=== PATIENT | female | born 1940 | race Caucasian/White ===

== ENCOUNTER 2017-03-02 14:37 | Inpatient (IN) | payer OTHER, MEDICARE ==
[~2017-03-02] VITALS: Ht 162.6 cm; Wt 115.7 kg
--- NOTE | 2017-03-02 14:56 | ED CRITICAL CARE ---
History of Present Illness General Chief Complaint: General Adult Stated Complaint: BIBA UNRESPONSIVE Source: old records, EMS Exam Limitations: unable to give history, clinical condition Vital Signs & Intake/Output Vital Signs & Intake/Output Vital Signs Date Time Temp Pulse Resp B/P B/P Pulse O2 O2 Flow FiO2 Mean Ox Delivery Rate 03/02 1929 63 18 123/63 100 Ventilator 90% 03/02 1924 90 03/02 1859 60 18 116/60 99 Ventilator 100% 03/02 1836 63 18 114/63 100 Ventilator 100% 03/02 1822 62 18 109/59 100 Ventilator 100% 03/02 1751 98.0 62 18 107/59 100 Room Air 03/02 1734 61 18 108/54 100 Ventilator 100% 03/02 1722 63 18 122/59 95 Ventilator 100% 03/02 1658 64 18 116/61 97 Ventilator 100% 03/02 1648 64 18 102/69 98 Ventilator 100% 03/02 1633 62 18 91/55 98 Ventilator 100% 03/02 1631 100 03/02 1614 97.5 62 18 88/53 97 Ventilator 100% 03/02 1557 62 18 105/57 98 Ventilator 100% 03/02 1543 100 03/02 1536 98 Ventilator 100% 03/02 1526 63 18 110/62 99 Ventilator 100% Allergies Coded Allergies: doxycycline (UNKNOWN PER PT 03/02/17) fentanyl (PER PT "ALMOST " 03/02/17) morphine (PER PT UNKNOWN 03/02/17) Reconcile Medications Alprazolam 0.5 MG TABLET 0.5 TAB PO QPM SLEEP/ANXIETY (Reported) Amitriptyline HCl 50 MG TABLET 1 TAB PO DAILY ANXIETY (Reported) Aspirin (Ecotrin*) 81 MG TABLET.DR 1 TAB PO DAILY HEART/BLOOD (Reported) Atorvastatin Calcium 10 MG TABLET 1 TAB PO DAILY CHOLESTEROL (Reported) Carvedilol 25 MG TABLET 1 TAB PO BID HEART/BP (Reported) Celecoxib 200 MG CAPSULE 1 CAP PO DAILY PAIN/INFLAMMATION (Reported) Diazepam 2 MG TABLET 1 TAB PO PRN ANXIETY (Reported) Dicyclomine HCl 20 MG TABLET 1 TAB PO TID PRN GI (Reported) Esomeprazole (Nexium) 40 MG CAPSULE.DR 1 CAP PO BID GI (Reported) Furosemide 40 MG TABLET 1 TAB PO DAILY DIURETIC (Reported) Metolazone 5 MG TABLET 1 TAB PO DAILY DIURETIC (Reported) Ondansetron (Zofran Odt) 4 MG TAB.RAPDIS 1 TAB SL Q8H PRN N/V (Reported) Oxycodone HCl (Oxycontin) 20 MG TAB.ER.12H 1 TAB PO BID PAIN (Reported) Oxycodone HCl 10 MG TABLET 1 TAB PO TID PAIN (Reported) Triage Nurses Notes Reviewed? yes HPI: Patient presents for evaluation of unresponsiveness after being found by family. According to EMS she was relatively prolonged extrication and she was nasotracheally intubated due to trismus. Patient's initial heart rate was in the 30s. Upon arrival to the emergency department she was being paced at a rate of 60 bpm and being ventilated by Ambu bag. Past History Medical History Any Pertinent Medical History? see below for history Surgical History Surgical History: unobtainable Family History Hx Contributory? No (patient unable to provide) Review of Systems Review of Systems Constitutional: Reports: see HPI. Comments Patient unable to provide review of systems Physical Exam Physical Exam General Appearance: SEE BELOW Comments: Gen.: Well-nourished, well-developed, status post endotracheal tube being actively ventilated upon arrival. Head: Normocephalic, atraumatic. Eyes: Corneas slightly clouded with enlarged reactive pupils Ears: Normal inspection bilaterally Nose: Endotracheal tube in place with red blood over the face and mouth Throat/mouth : Unable to assess Neck: No obvious trauma or goiter Heart: Regular rate and rhythm, Lungs: Clear to auscultation bilaterally with normal air entry with bagged ventilations Chest: Nontender Back: Normal range of motion Abdomen: Soft, softly distended, no "breathsounds" over the epigastric region or left upper quadrant Extremities: Decreased spontaneous range of motion of all extremities, equal radial pulses, no cyanosis, bilateral lower extremity pitting edema with chronic skin changes Neurologic: Patient moves all extremities occasionally particularly with noxious stimuli, otherwise unable to assess Skin: warm and dry Psychiatric: Unable to assess Core Measures ACS in differential dx? No CVA/TIA Diagnosis No Sepsis Present: No Sepsis Focused Exam Completed? No Progress Differential Diagnoses I considered the following diagnoses in my evaluation of the patient: Plan of Care: Orders Procedure Date/time Status VRE ACTIVE SURVIELLANCE 03/02 2015 Active ACTIVE SURVEILLANCE NARES 03/[address] CHEST WO IV CONTRAST 03/02 2010 Active Weight 03/02 1950 Active Turn and Reposition 03/02 1950 Active Teach/Educate 03/02 1950 Active Skin Integrity Protocol 03/02 1950 Active Skin/Pressure Ulcer Assess (Sk 03/02 1950 Active Precautions 03/02 1950 Active Pain Treatment and Response 03/02 1950 Active Nutritional Intake, Monitor 03/02 1950 Active Isolation 03/02 1950 Active Patient Care Conference 03/02 1950 Active Activity/Ambulation 03/02 1950 Active Pathway - chart 03/02 1927 Active Patient Data 03/02 1927 Active Code Status 03/02 1927 Active URINE DRUGS OF ABUSE 03/02 1926 Complete URINALYSIS 03/02 192 Complete VENTILATOR PARAMETERS 03/02 191 Complete Restraint- Medical 03/02 190 Active Admit to inpatient 03/02 1801 Active Patient Safety Monitor 03/02 1653 Active Nevarez, Insertion/Removal/Asses 03/02 1547 Active VENTILATOR PARAMETERS 03/02 1513 Complete Intake & Output 03/02 1510 Active ARTERIAL BLOOD GAS (GEN) 03/02 1453 Complete Telemetry/Clinical Biochemical Geneticist 03/02 1453 Active TROPONIN LEVEL 03/02 1453 Complete MAGNESIUM 03/02 1453 Complete CBC WITHOUT DIFFERENTIAL 03/02 1453 Complete B-TYPE NATRIURETIC PEP (BNP) 03/02 1453 Complete BASIC METABOLIC PANEL 03/02 1453 Complete EKG 03/02 1442 Active House Staff 03/02 UNK Active VTE Mechanical Prophylaxis 03/02 UNK Active Vital Signs 03/02 UNK Active Laboratory Tests 03/02/17 193: Urine Opiates Screen 999.00, Methadone Screen 50, Barbiturate Screen < 60, Ur Phencyclidine Scrn < 6.00, Amphetamines Screen < 100, U Benzodiazepines Scrn 231 H, Urine Cocaine Screen < 50, Urine Cannabis Screen < 5.00, Urinalysis MANY H, Urine Color YAIMA, Urine Clarity HAZY H, Urine pH 6.0, Ur Specific Chancellor 1.025, Urine Protein 100 H, Urine Ketones NEG, Urine Nitrite NEG, Urine Bilirubin NEG, Urine Urobilinogen 1.0, Ur Leukocyte Esterase NEG, Ur Microscopic SEDIMENT EXAMINED, Urine RBC 5-10 H, Urine WBC 1-3 H, Ur Epithelial Cells FEW, Urine Bacteria MANY H, Urine Hemoglobin MOD H, Urine Glucose NEG 03/02/17 1610: pH 7.40, pCO2 45, pO2 84, HCO3 27, ABG O2 Sat (Measured) 94.0 L, P-50 (Temp Corrected) N, Carboxyhemoglobin 1.8, O2 Concentration % 100, Temperature 97.5, Respiration Rate 18, O2 Delivery Method ESPRIT, Vent Mode AC, Expiratory Pressure 5, Tidal Volume 450, Phlebotomy Draw Site LEFT RADIAL 03/02/17 1520: Anion Gap 12, Estimated GFR 28 L, BUN/Creatinine Ratio 27.2 H, Glucose 114 H, Calcium 8.0 L, Magnesium 2.2, Troponin I 0.08, [id number] Pept 10121 H, CBC w Diff MAN DIFF ORDERED, RBC 5.49 H, MCV 79.6 L, MCH 24.4 L, RDW 16.5 H, MPV 8.4, Gran % 86.3 H, Lymphocytes % 9.2 L, Monocytes % 4.5, Eosinophils % 0, Basophils % 0, Absolute Granulocytes 10.1 H, Segmented Neutrophils 84 H, Absolute Lymphocytes 1.1 L, Lymphocytes 10 L, Monocytes 6, Absolute Monocytes 0.5, Absolute Eosinophils 0, Absolute Basophils 0, Platelet Estimate ADEQUATE, Polychromasia 1+, Hypochromic-Microcytic 1+, Poikilocytosis 1+, Basophilic Stippling RARE, Anisocytosis 1+, Microcytic Cells 1+, PUBS MCHC 30.6 L, Fld Total RBCs Counted 100 Microbiology 03/02 2016 UPPER RESP: Surveillance Culture - CAN Cancelled: Cancelled via OE: DUPLICATE 03/02 2016 GI: Surveillance Culture - CAN Cancelled: Cancelled via OE: DUPLICATE 03/02 2015 UPPER RESP: Surveillance Culture - ORD 03/02 2015 GI: Surveillance Culture - ORD Diagnostic Imaging: Discussed w/RAD: Radiology Read. CXR Impression: PATIENT: KATIE PHAN V PRESENT AGE : 76 PATIENT ACCOUNT NO: [id number] : 42 LOCATION: [facility] ORDERING PHYSICIAN: Brandon Alvarenga MD SERVICE DATE: 03/02/17 EXAM TYPE: RAD - XRY-PORTABLE CHEST XRAY EXAMINATION: XR PORTABLE CHEST CLINICAL INFORMATION: Unresponsive. Status post endotracheal tube placement. COMPARISON: None TECHNIQUE: Portable supine view of the chest was obtained. FINDINGS: The tip of the endotracheal tube terminates 5 cm from the leah, in good position. Patient is rotated to the right. EKG leads overlie the chest. Cardiac silhouette is within normal limits in size for technique. The mediastinal contour appears enlarged, though this may be due to supine positioning. Lung volumes are low with bibasilar and perihilar atelectasis. Perihilar opacities could also reflect early edema. No focal consolidation. No pleural effusion or pneumothorax. Surgical clips are present in the left axillary region. 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 IMPRESSION: The endotracheal tube terminates in good position, 5 cm from the leah. Widened mediastinum contour, most likely related to the supine positioning. Underlying mediastinal abnormalities are possible. If there is concern for acute vascular process, consider correlation with chest CT. Low lung volumes with bibasilar and perihilar atelectasis. Perihilar opacities could also correspond to early edema. DICTATED BY: Jerel Burris MD DATE/TIME DICTATED:03/02/171622 RETREAD OPERATOR:RADHA DATE/TIME TRANSCRIBED:1622 CONFIDENTIAL, DO NOT COPY WITHOUT APPROPRIATE AUTHORIZATION. < Electronically signed in Other Vendor System> SIGNED BY: Jerel Burris MD 03/02/17 1631 Initial ED EKG: NSR, T waves inverted in the anteroseptal leads Comments: 03/02/2017 2:50:31 PM I have discussed this patient's case with anesthesia given the current nasotracheal intubation. The paramedics stated that there was some trauma during the nasotracheal intubation and the patient does have red blood over the nose and mouth. Transferring her from the nasotracheal tube and endotracheal tube will likely be challenging given the blood and the patient's body habitus. Anesthesia will be evaluating her after she is acutely stabilized. 03/02/2017 3:16:54 PM blood work drawn by me via right femoral vein venipuncture. Patient is beginning to move her extremities more vigorously. 03/02/2017 5:27:24 PM the patient is now awake alert and is mouthing answers to questions. I've explained to her the possibility of a central line placement but she wishes to hold off on that for the time being. I made her aware that her IV access is tenuous. Her daughter and were at the bedside during my conversation. I feel she looks remarkably better than she did upon presentation. 03/02/2017 7:12:50 PM patient's case discussed with Dr. Rivera and Dr. Park. Dr. Park will consult on patient in the morning. He states that he might consider extubating patient if she is awake alert and responsive. Departure Departure Disposition: STILL A PATIENT Condition: Stable Clinical Impression Primary Impression: Respiratory failure Qualifiers: Chronicity: acute Respiratory failure complication: unspecified whether with hypoxia or hypercapnia Qualified Code: J96.00 - Acute respiratory failure, unspecified whether with hypoxia or hypercapnia Referrals: Xenia MYRICK,Jamil Duke (PCP/Family) Departure Forms: Customer Survey General Discharge Information Admission Note Spoke With: Rui Tamez MD Documentation of Exam: Documentation of any treatments & extenuating circumstances including Concerns Regarding Discharge (functional status, medication knowledge or non-compliance, living conditions, etc.) that warrant an admission rather than observation: Patient was intubated in the field secondary to respiratory arrest. Her heart rate was in the 30s indicating that she was close to a cardiac arrest as well. Given this patient's age and Oddy habitus I feel that she requires continued intubation with full respiratory support and ICU level care. She cannot be treated as an outpatient. Consultation with the adjutant general should be obtained and the patient's respiratory support and oxygenation weaned as tolerated. Pulmonary consultation should also be considered given the high likelihood of sleep apnea. I suspect the patient's respiratory failure secondary to a combination of undiagnosed sleep apnea, opiate use and benzodiazepine use. Patient's medications should be reevaluated and dosages adjusted given the patient's episode of respiratory failure. Pain management consultation should be considered as well. I feel this patient will require a multiple day hospitalization. Critical Care Note Critical Care Note Critical Care Time: 75-104 min
[2017-03-02 15:39] LABS: ABSOLUTE BASOPHIL COUNT 0 /CUMM (0.0-0.2); ABSOLUTE EOSINOPHIL COUNT 0 /CUMM (0.0-0.7); ABSOLUTE GRANULOCYTE CT 10.1 /CUMM (1.4-6.5); ABSOLUTE LYMPH COUNT 1.1 /CUMM (1.2-3.4); ABSOLUTE MONOCYTE COUNT 0.5 /CUMM (0.10-0.60); BASOPHIL % 0 % (0.0-2.0); EOSINOPHIL % 0 % (0-5); HEMATOCRIT 43.7 % (37-47); MEAN CORPUSCULAR HGB 24.4 PG (27.0-31.0); MEAN CORPUSCULAR HGB CONC 30.6 G/DL (33.0-37.0); MEAN CORPUSCULAR VOLUME 79.6 FL (81.0-99.0); MEAN PLATELET VOLUME 8.4 FL (7.4-10.4); PLATELET COUNT 180 /CUMM (130-400); RBC DISTRIBUTION WIDTH 16.5 % (11.5-14.5); RED BLOOD CELL CT 5.49 /CUMM (4.20-5.40); WHITE BLOOD CELL COUNT 11.7 /CUMM (4.8-10.8)
[2017-03-02 16:09] LABS: GRANULOCYTE % 86.3 % (42.2-75.2)
[2017-03-02] MEDS ORDERED: OXYCONTIN20 M1 PO (16:11)
[2017-03-02] MEDS ORDERED: OXYCODONE HCL10 M2 PO (16:11)
[2017-03-02] MEDS ORDERED: ZOFRAN ODT4 M1 SL (16:12)
[2017-03-02] MEDS ORDERED: ATORVASTATIN CA10 M1 PO (16:12)
[2017-03-02] MEDS ORDERED: DICYCLOMINE HCL20 M1 PO (16:12)
[2017-03-02] MEDS ORDERED: FUROSEMIDE40 M1 PO (16:12)
[2017-03-02] MEDS ORDERED: CARVEDILOL25 M1 PO (16:13)
[2017-03-02] MEDS ORDERED: CELECOXIB200 M1 PO (16:14)
[2017-03-02] MEDS ORDERED: DIAZEPAM2 M1 PO (16:14)
[2017-03-02] MEDS ORDERED: ALPRAZOLAM0.5 M4 PO (16:14)
[2017-03-02] MEDS ORDERED: NEXIUM40 M1 PO (16:15)
[2017-03-02] MEDS ORDERED: AMITRIPTYLINE H50 M2 PO (16:15)
[2017-03-02] MEDS ORDERED: METOLAZONE5 M1 PO (16:15)
[2017-03-02] MEDS ORDERED: ASPIRIN EC81 M1 PO (16:16)
--- NOTE | 2017-03-02 16:31 | RADIOLOGY REPORT ---
EXAMINATION: XR PORTABLE CHEST CLINICAL INFORMATION: Unresponsive. Status post endotracheal tube placement. COMPARISON: None TECHNIQUE: Portable supine view of the chest was obtained. FINDINGS: The tip of the endotracheal tube terminates 5 cm from the leah, in good position. Patient is rotated to the right. EKG leads overlie the chest. Cardiac silhouette is within normal limits in size for technique. The mediastinal contour appears enlarged, though this may be due to supine positioning. Lung volumes are low with bibasilar and perihilar atelectasis. Perihilar opacities could also reflect early edema. No focal consolidation. No pleural effusion or pneumothorax. Surgical clips are present in the left axillary region. 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 IMPRESSION: The endotracheal tube terminates in good position, 5 cm from the leah. Widened mediastinum contour, most likely related to the supine positioning. Underlying mediastinal abnormalities are possible. If there is concern for acute vascular process, consider correlation with chest CT. Low lung volumes with bibasilar and perihilar atelectasis. Perihilar opacities could also correspond to early edema.
--- NOTE | 2017-03-02 19:25 | History & Physical ---
Josie MYRICK,[facility] 03/02/171922: General Information and HPI MD Statement: I have seen and personally examined KATIE PHAN V and documented this H&P. The patient is a 76 year old F who presented with a patient stated chief complaint of unreponsive. Source of Information: family, old records, EMS Exam Limitations: not alert/orientated History of Present Illness: is a 76-year-old female past medical history of lupus, lower extremity edema , anxiety, chronic pain, who presented to the emergency department after her found her unresponsive. It appears the patient had a similar presentation in February 2016 (at this time she was previously on fentanyl) and had to [facility], after she was found to be unresponsive. She was subsequently given Narcan and became more responsive. of the patient Fernando was present at the time of her clinical encounter and stated that over the last few days the patient has been feeling feeling very tired and lethargic. She also has chronic pain of which she gets pain medications from her primary care physician. This morning she woke up at the 7 AM took her pain medications (One Oxycodone HCL (oxycontin) 20 mg ER * and one Oxycodone HCL 10 mg). She went back to sleep and at approximately 1 PM her attempted to wake the patient up however was unsuccessful. Since the patient was unresponsive, he called EMS. EMS found her heart rate was in 30s and she was apnic taking intermittent breaths. It was reported that the patient had to be paced on the field. Patient also had an episode of trismus at which point had to be nasally tracheally intubated. The of the patient can be reached: [phone] (home). [phone] ( cell phone). Patients PCP is: Dr Mccoy. Poncho has not seen a bass singer. She no longer follows up with a top lift trimmer. Allergies/Medications Allergies: Coded Allergies: doxycycline (UNKNOWN PER PT 03/02/17) fentanyl (PER PT "ALMOST " 03/02/17) morphine (PER PT UNKNOWN 03/02/17) Home Med list Alprazolam 0.5 MG TABLET 0.5 TAB PO QPM SLEEP/ANXIETY (Reported) Amitriptyline HCl 50 MG TABLET 1 TAB PO DAILY ANXIETY (Reported) Aspirin (Ecotrin*) 81 MG TABLET.DR 1 TAB PO DAILY HEART/BLOOD (Reported) Atorvastatin Calcium 10 MG TABLET 1 TAB PO DAILY CHOLESTEROL (Reported) Carvedilol 25 MG TABLET 1 TAB PO BID HEART/BP (Reported) Celecoxib 200 MG CAPSULE 1 CAP PO DAILY PAIN/INFLAMMATION (Reported) Diazepam 2 MG TABLET 1 TAB PO PRN ANXIETY (Reported) Dicyclomine HCl 20 MG TABLET 1 TAB PO TID PRN GI (Reported) Esomeprazole (Nexium) 40 MG CAPSULE.DR 1 CAP PO BID GI (Reported) Furosemide 40 MG TABLET 1 TAB PO DAILY DIURETIC (Reported) Metolazone 5 MG TABLET 1 TAB PO DAILY DIURETIC (Reported) Ondansetron (Zofran Odt) 4 MG TAB.RAPDIS 1 TAB SL Q8H PRN N/V (Reported) Oxycodone HCl (Oxycontin) 20 MG TAB.ER.12H 1 TAB PO BID PAIN (Reported) Oxycodone HCl 10 MG TABLET 1 TAB PO TID PAIN (Reported) Compliance With Home Meds: GOOD Past History Travel History Traveled to [place] past 21 day No Medical History EENT: SLEEP APNEA Endocrine: LUPUS DIABET Past Family/Social History Psychosocial History Where do you live? Home Who Do You Live With? spouse Services at Home: None Primary Language: Colombian Smoking Status: Never Smoked ETOH Use: denies use Illicit Drug Use: denies illicit drug use Living Will? yes Functional Ability ADLs Independent: dressing, eating, toileting, bathing. Ambulation: independent IADLs Independent: shopping, housework, finances, food prep, telephone, transportation , medication admin. Employment History Past Employment History Unobtainable at this time Employment Disability Review of Systems Review of Systems Constitutional: Reports: see HPI, chills, weakness. GI: Reports: constipation. Denies: bloating, diarrhea, distention, bowel incontinence, melena, nausea, bloody stool. Genitourinary: Reports: see HPI (Odor Changes Noted ). Musculoskeletal: Reports: back pain. Denies: gout, joint pain, joint swelling, muscle pain. Skin: Denies: cysts, change in skin color, change in hair/nails, dryness, erythema. Neurological/Psychological: Denies: cognitive dysfunction, confusion, depressed, dementia. Hematologic/Endocrine: Denies: bruising, bleeding, polyuria. Exam & Diagnostic Data Last 24 Hrs of Vital Signs/I&O Vital Signs Date Time Temp Pulse Resp B/P B/P Pulse O2 O2 Flow FiO2 Mean Ox Delivery Rate 03/02 1859 60 18 116/60 99 Ventilator 100% 03/02 1836 63 18 114/63 100 Ventilator 100% 03/02 1822 62 18 109/59 100 Ventilator 100% 03/02 1751 98.0 62 18 107/59 100 Room Air 03/02 1734 61 18 108/54 100 Ventilator 100% 03/02 1722 63 18 122/59 95 Ventilator 100% 03/02 1658 64 18 116/61 97 Ventilator 100% 03/02 1648 64 18 102/69 98 Ventilator 100% 03/02 1633 62 18 91/55 98 Ventilator 100% 03/02 1631 100 03/02 1614 97.5 62 18 88/53 97 Ventilator 100% 03/02 1557 62 18 105/57 98 Ventilator 100% 03/02 1543 100 03/02 1536 98 Ventilator 100% 03/02 1526 63 18 110/62 99 Ventilator 100% Intake & Output 03/02 1600 03/02 0800 03/02 0000 Intake Total 100 Output Total Balance 100 Intake, IV 100 Intake, Oral Patient 117.934 kg Weight Weight Estimated Measurement Method Physical Exam General Appearance No Acute Distress Skin No Rashes Skin Temp/Moisture Exam: Cool/Dry Sepsis Skin Exam (color): Normal for Ethnicity HEENT PERRLA, Mucous Membr. moist/pink Neck Supple Lymphatic Cervical nl Cardiovascular Normal S1, Normal S2 Lungs Crackles Noted LLB Abdomen Normal Bowel Sounds, Soft, No Tenderness Neurological Intubated Extremities Edema 3+ Vascular Normal Pulses Last 24 Hrs of Labs/Edmund: Laboratory Tests 03/02/17 1610: pH 7.40, pCO2 45, pO2 84, HCO3 27, ABG O2 Sat (Measured) 94.0 L, P-50 (Temp Corrected) N, Carboxyhemoglobin 1.8, O2 Concentration % 100, Temperature 97.5, Respiration Rate 18, O2 Delivery Method ESPRIT, Vent Mode AC, Expiratory Pressure 5, Tidal Volume 450, Phlebotomy Draw Site LEFT RADIAL 03/02/17 1520: Anion Gap 12, Estimated GFR 28 L, BUN/Creatinine Ratio 27.2 H, Glucose 114 H, Calcium 8.0 L, Magnesium 2.2, Troponin I 0.08, Wft-U-Idyvqvlnumi Pept 03709 H, CBC w Diff MAN DIFF ORDERED, RBC 5.49 H, MCV 79.6 L, MCH 24.4 L, RDW 16.5 H, MPV 8.4, Gran % 86.3 H, Lymphocytes % 9.2 L, Monocytes % 4.5, Eosinophils % 0, Basophils % 0, Absolute Granulocytes 10.1 H, Segmented Neutrophils 84 H, Absolute Lymphocytes 1.1 L, Lymphocytes 10 L, Monocytes 6, Absolute Monocytes 0.5, Absolute Eosinophils 0, Absolute Basophils 0, Platelet Estimate ADEQUATE, Polychromasia 1+, Hypochromic-Microcytic 1+, Poikilocytosis 1+, Basophilic Stippling RARE, Anisocytosis 1+, Microcytic Cells 1+, PUBS MCHC 30.6 L, Fld Total RBCs Counted 100 Assessment/Plan Assessment: is a 76-year-old female past medical history of lupus, lower extremity edema , anxiety, chronic pain, who presented to the emergency department after her found her unresponsive. It appears that she was respiratory failure was likely the result of increasing pain medications over the last few days. Coupled with acute kidney injury likely resulted in a decreased clearance. Benzodiazepine may have also caused some respiratory depression. Problem List #Acute Respiratory Failure likley due to opiod and bezodiazepine use overdose, vs aspitation pneumonia #?OHS VS NICOLE #Rule out ACS #Bradycardia #History of SLE #Lower extremity venous stasis #Hyperglycemia #CHIOMA #Hyponatremia -CT Chest to rule out acute pathology vs pneumonia, ensure, mediastinal widening does not represnt anything that warrants immediate intervention. -Avoid opiod medications, may resume short acting medication in am to ensure patient does not withdraw. Hold if still sedated. -Propofol for sedation if needed -Trend troponins till peak. Monitor EKG for changes. farm tractor mechanic cardilogist was contacted this evening. If patient becomes hemodynmically unstable, call cardiology again. Formal reccomendations to follow in AM. -Aspirin AK was given. -Rapid Flu swab -Keep legs elevated -Lower Extremity dopplers to rule out a DVT -Echocardiogram assess EF and r/o WMA. -Hb1Ac Fluid Restriction. Consider Urine osmolality, serum osmolality, urine lytes. -Sleep study as outpatient. -Patient will need an OGtube placed in AM -Obtain records from [facility]. Housekeeping: IV Protonix Code FC DVT PPX: Heparin Sub Q As Ranked By This Provider Problem List: 1. Respiratory failure Qualifiers Chronicity: acute Respiratory failure complication: unspecified whether with hypoxia or hypercapnia Qualified Code: J96.00 - Acute respiratory failure, unspecified whether with hypoxia or hypercapnia Core Measures/Misc (11/19) Acute Coronary Syndrome ACS Diagnosis: No Congestive Heart Failure Congestive Heart Failure Diagnosis No Jc MYRICK, [facility] 03/02/17 2159: Attending MD Review Statement Attending Statement Attending MD Statement: examined this patient, discuss w/resident/PA/WARD MAID, agreed w/resident/PA/WARD MAID, discussed with family, reviewed images, amended to note Attending Assessment/Plan: 76 yo F with h/o ?lupus (no obvious features questionable diagnosis), chronic pain, HTN, T2DM, breast/ uterine cancer, chronic venous stasis is brought in after patient found her unresponsive at home. provides history as patient is intubated. Patient is on opiate medications (oxycodone and oxycontin) and she follows with pain management Dr. Mccoy. gives her the medications and he denies any overdose. He does state that for the past few days, he has been giving the oxycodone 10 mg 4times/ day instead of 3times/day. He noted that she has not been feeling well, c/o fatigue and exertional dyspnea (more than her baseline). He also noted that she has gained a lot of weight although he is unable to amount it. Constipation+. No nausea, vomiting or diarrhea reported. He did notice a distinct odour to her urine. At baseline, patient ambulates with a walker but for the past few days she has not been active or mobile due to felling unwell. This morning at 7 am, patient woke up, was lethargic and complained of substernal chest discomfort. gave her the regular dose of pain medications (oxycontin 20 mg and oxycodone 10 mg) and patient went back to sleep. At 1 pm, when tried to wake her up, she was found unresponsive. EMS arrived, noted patient to be apneic, HR in 30's and BP 60's systolic. Patient was nasally intubated (due to trismus) and paced at a HR of 60 and 80 mA. She also received Narcan IV 3 mg enroute. On ER arrival, patient was noted to have strong radial pulses, BP 110/62, HR 60's, pacing was discontinued. Patient was spontaneously moving her extremities and gradually became more responsive. ROS is unobtainable. reports that patient had similar opiate overdose presentation in Feb 2016 at [facility], where she responded to Narcan and was not intubated. Vitals: afebrile, HR 60's, BP 105/57 --> 88/53--> 108/54, sats 100% on vent FiO2 90%. Exam: Nasally intubated, was sedated with IV ativan, but on my eval, patient was responsive to verbal commands, she was able to follow my commands as well. Morbidly obese female, Head atraumatic, Skin warm and dry, no obvious rash, capillary refill ~ 2 secs, Mucous membranes dry, Neck supple, PERRL, Chest clear anteriorly, few basilar crackles (L>R), Heart S1S2 regular, systolic murmur, Abd soft, NT, BS hypoactive, LE: chronic venous stasis dermatitis with 2+ pitting edema. Back: no skin changes. She has significant bloody secretions from ETT, likely traumatic from the placement. Labs: WBC 11.7, microcytosis, Plt 180, no bands, Na 135, bicarb 33, BUN 49, creat 1.8 (creatinine 0.5 in 2016 at [place]), glucose 114, lactic acid 2.2, trop 0.08 --> 0.11, proBNP 38308, CK 106. AB.40/45/84/27 on vent AC TV 450, RR 18, PEEP 5, FiO2 100%. UA hazy, proteinuria, WBC 1-3, many bacteria. Urine tox screen benzos+, opiates 999. CXR: ETT in good position. Widened mediastinum contour, low lung volumes with bibasilar and perihilar atelectasis. CT chest: segmental and subsegmental atelectasis in the upper and lower lobes. Small foci of superimposed consolidation, hepatic steatosis and splenomegaly. EKG: Sinus rhythm with TWI in V1-V3 with Qtc 451. Repeat EKG shows TWI in inferior leads. (no old EKG to compare). Assessment and plan 1. Acute respiratory failure in the setting of opiate use in combination with possible underlying NICOLE and OHS 2. Status post nasal intubation 3. Bradycardia and hypotension with ischemic changes on EKG 4. Troponin elevation NSTEMI vs. Type 2 AR 5. Possible aspiration pneumonia/ pneumonitis in the setting of nasal intubation 6. CHIOMA 7. Elevated proBNP, not in florid pulmonary edema. 8. History of SLE and diabetes mellitus - Admit to ICU - Vitals Q1 hour - Nevarez placement, strict I/O's - Continue nasal intubation, Dr. Park to evaluate - Repeat ABG and CXR in AM - Consider propofol for sedation as needed, no benzos. - Serial EKG and troponin, obtain Echo and Cardio consult (Dr. Noriega informed) - Aspirin 300 mg AK now, then 81 mg daily from AM, ct. atorvastatin - Consider anticoagulation if troponin trend up - CR[facility] consult (Dr. Park) - Check HbA1c, lipid panel, TSH, free T4. - Monitor for arrhythmias - Gentle IV hydration, trend lactic acid and renal functions - Panculture, IV Unasyn empirically for now - Diabetes management with insulin SS - Obtain LE dopplers to rule out DVT - Resume narcotics in AM, initiate oxycodone as needed - Hold carvedilol, lasix and celecoxib. - Outpatient sleep study - Obtain records from [facility] GI ppx IV protonix DVT ppx Hep SC. Full code. TTS> 55 mins
--- NOTE | 2017-03-02 21:55 | CT SCAN REPORT ---
EXAMINATION: CT CHEST WITHOUT CONTRAST CLINICAL INFORMATION: Widened mediastinum. COMPARISON: Portable radiograph from the same date TECHNIQUE: Multidetector volumetric CT imaging of the chest was done. Axial MIP volume rendering provided. Sagittal and coronal reformatted images were obtained. DLP: 756 mGy-cm FINDINGS: LUNGS: Segmental atelectasis is present within the lower lobes bilaterally involving the apical and posterior/medial basilar segments. A component of superimposed consolidation is possible. Subsegmental atelectasis is also present in the upper lobes posteromedially. Minimal dependent atelectasis is present in the right middle lobe as well. Central airways are clear. Endotracheal tube terminates 5 cm from the leah. MEDIASTINUM: Heart is normal in size. No pericardial effusion. Thoracic aorta is normal in caliber and contour. No acute injuries are identified. Absence of intravenous contrast material limits assessment for intimal injuries. No hilar or mediastinal adenopathy. PLEURA: No effusions or pleural thickening. AXILLA: Surgical clips are present in the left axilla. No adenopathy. UPPER ABDOMEN: Borderline splenomegaly (14.2 cm). Relative hypoattenuation of the hepatic parenchyma is consistent with steatosis. OSSEOUS STRUCTURES: Minimal degenerative disc disease is present in the thoracic spine. No acute fractures are identified. Ribs appear intact. No osseous lesions are identified. IMPRESSION: 1. Segmental and subsegmental atelectasis in the contour upper and lower lobes dependently. Small foci of superimposed consolidation is possible. No acute mediastinal findings. 2. Appropriate positioning of the endotracheal tube. 3. Hepatic steatosis 4. Borderline splenomegaly
--- NOTE | 2017-03-02 22:40 | Admission Certification ---
Admission Certification Certification Statement - As attending physician, I certify that at the time of - admission, based on clinical presentation, severity of - symptoms, need for further diagnostic testing and - therapeutic interventions, and risk of adverse outcomes - without in-hospital treatment, in my clinical assessment, - this patient requires an acute hospital stay for a minimum - of two nights or longer. I have also considered psychsocial - factors such as support system, advanced age, financial - issues, cognitive issues, and failed out-patient treatments, - past re-admission history, safety of patient, and lack of - compliance as applicable. Specific rationale supporting this admission is: Acute respiratory failure in the setting of opiate use, possible underlying NICOLE and OHS.
--- NOTE | 2017-03-02 23:32 | Cons- CRCU ---
General Information and HPI Consulting Request Date of Consult: 03/02/17 Requested By: med team History of Present Illness: is a 76-year-old female past medical history of lupus, lower extremity edema , anxiety, chronic pain, who presented to the emergency department after her found her unresponsive. It appears the patient had a similar presentation in February 2016 (at this time she was previously on fentanyl) and had to [facility], after she was found to be unresponsive. She was subsequently given Narcan and became more responsive. of the patient Fernando was present at the time of her clinical encounter and stated that over the last few days the patient has been feeling feeling very tired and lethargic. She also has chronic pain of which she gets pain medications from her primary care physician. This morning she woke up at the 7 AM took her pain medications (One oxycontin 20 mg ER * and one oxycontin 10 mg) . She went back to sleep and at approximately 1 PM her attempted to wake the patient up however was unsuccessful. Since the patient was unresponsive, he called EMS. EMS found her heart rate was in 30s and she was apnic taking intermittent breaths. Patient also had an episode of trismus at which point had to be intubated. The of the patient can be reached: [phone] (home). [phone] ( cell phone). Patients PCP is: Dr Mccoy. Poncho has not seen a remnants cutter. She no longer follows up with a piano instructor. Allergies/Medications Allergies: Coded Allergies: doxycycline (UNKNOWN PER PT 03/02/17) fentanyl (PER PT "ALMOST " 03/02/17) morphine (PER PT UNKNOWN 03/02/17) Home Med List: Alprazolam 0.5 MG TABLET 0.5 TAB PO QPM SLEEP/ANXIETY (Reported) Amitriptyline HCl 50 MG TABLET 1 TAB PO DAILY ANXIETY (Reported) Aspirin (Ecotrin*) 81 MG TABLET.DR 1 TAB PO DAILY HEART/BLOOD (Reported) Atorvastatin Calcium 10 MG TABLET 1 TAB PO DAILY CHOLESTEROL (Reported) Carvedilol 25 MG TABLET 1 TAB PO BID HEART/BP (Reported) Celecoxib 200 MG CAPSULE 1 CAP PO DAILY PAIN/INFLAMMATION (Reported) Diazepam 2 MG TABLET 1 TAB PO PRN ANXIETY (Reported) Dicyclomine HCl 20 MG TABLET 1 TAB PO TID PRN GI (Reported) Esomeprazole (Nexium) 40 MG CAPSULE.DR 1 CAP PO BID GI (Reported) Furosemide 40 MG TABLET 1 TAB PO DAILY DIURETIC (Reported) Metolazone 5 MG TABLET 1 TAB PO DAILY DIURETIC (Reported) Ondansetron (Zofran Odt) 4 MG TAB.RAPDIS 1 TAB SL Q8H PRN N/V (Reported) Oxycodone HCl (Oxycontin) 20 MG TAB.ER.12H 1 TAB PO BID PAIN (Reported) Oxycodone HCl 10 MG TABLET 1 TAB PO TID PAIN (Reported) Review of Systems Review of Systems Constitutional: Reports: see HPI. Past History Travel History Traveled to [place] past 21 day No Medical History EENT: SLEEP APNEA Endocrine: LUPUS DIABET Surgical History Surgical History: unobtainable Psychosocial History Where Do You Live? Home Who Do You Live With? spouse Services at Home: None Primary Language: German Smoking Status: Never Smoked ETOH Use: denies use Illicit Drug Use: denies illicit drug use Living Will? yes Functional Ability ADLs Independent: dressing, eating, toileting, bathing. Ambulation: independent IADLs Independent: shopping, housework, finances, food prep, telephone, transportation , medication admin. Employment History Employment: Disability Exam & Diagnostic Data Last 24 Hrs of Vital Signs/I&O Vital Signs Date Time Temp Pulse Resp B/P B/P Pulse O2 O2 Flow FiO2 Mean Ox Delivery Rate 03/02 2213 75 03/02 1929 63 18 123/63 100 Ventilator 90% 03/02 1924 90 03/02 1859 60 18 116/60 99 Ventilator 100% 03/02 1836 63 18 114/63 100 Ventilator 100% 03/02 1822 62 18 109/59 100 Ventilator 100% 03/02 1751 98.0 62 18 107/59 100 Room Air 03/02 1734 61 18 108/54 100 Ventilator 100% 03/02 1722 63 18 122/59 95 Ventilator 100% 03/02 1658 64 18 116/61 97 Ventilator 100% 03/02 1648 64 18 102/69 98 Ventilator 100% 03/02 1633 62 18 91/55 98 Ventilator 100% 03/02 1631 100 03/02 1614 97.5 62 18 88/53 97 Ventilator 100% 03/02 1557 62 18 105/57 98 Ventilator 100% 03/02 1543 100 03/02 1536 98 Ventilator 100% 03/02 1526 63 18 110/62 99 Ventilator 100% Intake & Output 03/02 1600 03/02 0800 03/02 0000 Intake Total 100 Output Total Balance 100 Intake, IV 100 Intake, Oral Patient 260 lb Weight Weight Estimated Measurement Method Last 48 Hrs of Labs/Edmund: Laboratory Tests 03/02/178: Lactic Acid 2.2 H, Creatine Kinase 106, Troponin I 0.11 *H 03/02/17 1932: Urine Opiates Screen 999.00, Methadone Screen 50, Barbiturate Screen < 60, Ur Phencyclidine Scrn < 6.00, Amphetamines Screen < 100, U Benzodiazepines Scrn 231 H, Urine Cocaine Screen < 50, Urine Cannabis Screen < 5.00, Urinalysis MANY H, Urine Color YAIMA, Urine Clarity HAZY H, Urine pH 6.0, Ur Specific [place] 1.025, Urine Protein 100 H, Urine Ketones NEG, Urine Nitrite NEG, Urine Bilirubin NEG, Urine Urobilinogen 1.0, Ur Leukocyte Esterase NEG, Ur Microscopic SEDIMENT EXAMINED, Urine RBC 5-10 H, Urine WBC 1-3 H, Ur Epithelial Cells FEW, Urine Bacteria MANY H, Urine Hemoglobin MOD H, Urine Glucose NEG 03/02/17 1610: pH 7.40, pCO2 45, pO2 84, HCO3 27, ABG O2 Sat (Measured) 94.0 L, P-50 (Temp Corrected) N, Carboxyhemoglobin 1.8, O2 Concentration % 100, Temperature 97.5, Respiration Rate 18, O2 Delivery Method ESPRIT, Vent Mode AC, Expiratory Pressure 5, Tidal Volume 450, Phlebotomy Draw Site LEFT RADIAL 03/02/17 1520: Anion Gap 12, Estimated GFR 28 L, BUN/Creatinine Ratio 27.2 H, Glucose 114 H, Hemoglobin A1c Pending, Calcium 8.0 L, Magnesium 2.2, Troponin I 0.08, Pro-B- Natriuretic Pept 16827 H, CBC w Diff MAN DIFF ORDERED, RBC 5.49 H, MCV 79.6 L , MCH 24.4 L, RDW 16.5 H, MPV 8.4, Gran % 86.3 H, Lymphocytes % 9.2 L, Monocytes % 4.5, Eosinophils % 0, Basophils % 0, Absolute Granulocytes 10.1 H, Segmented Neutrophils 84 H, Absolute Lymphocytes 1.1 L, Lymphocytes 10 L, Monocytes 6, Absolute Monocytes 0.5, Absolute Eosinophils 0, Absolute Basophils 0, Platelet Estimate ADEQUATE, Polychromasia 1+, Hypochromic-Microcytic 1+, Poikilocytosis 1+, Basophilic Stippling RARE, Anisocytosis 1+, Microcytic Cells 1+, PUBS MCHC 30.6 L, Fld Total RBCs Counted 100 Microbiology 03/02 2048 NASOPHARYN: Influenza Virus A & B Rapid Smear - COMP Assessment/Plan Impression/Plan: DELGADO nasal intubation mild bloody secretions chest mild crackle abd soft bs Sig edema EKG noted taras with t wave changes IMPRESSION Pt with multiple issues with history of inflammatory disease with prob lupus and sjogrens on immunosupp rx with Acute resp failure with nasal intubation - prob due to narcotics Sig taras noted on the field, with troponin leak with ekg changes Lower ext edema rule out vte DM with hyperglycemia CHIOMA hyponatremia Aspiration pna, with atx NICOLE prob untreated REC Keep intubated propofol Hold narcotics Check random cortisol Watch for taras LE dopplers Prob would need heparin ECHo FSG with sliding scale UNasyn ASA, and statins Avoid betablocker Pt is critically ill tts 40 mins discussed with house staff Consult Acknowledgment - Thank you for your consult request.
[2017-03-03] VITALS: BP 122/66
[2017-03-03 05:01] LABS: ABSOLUTE BASOPHIL COUNT 0 /CUMM (0.0-0.2); ABSOLUTE EOSINOPHIL COUNT 0 /CUMM (0.0-0.7); ABSOLUTE LYMPH COUNT 1.2 /CUMM (1.2-3.4); ABSOLUTE MONOCYTE COUNT 0.1 /CUMM (0.10-0.60); EOSINOPHIL % 0.3 % (0-5)
[2017-03-03 05:13] LABS: ABSOLUTE GRANULOCYTE CT 8.4 /CUMM (1.4-6.5); BASOPHIL % 0.3 % (0.0-2.0); GRANULOCYTE % 86.5 % (42.2-75.2); MEAN CORPUSCULAR VOLUME 77.9 FL (81.0-99.0); MEAN PLATELET VOLUME 8.8 FL (7.4-10.4); PLATELET COUNT 136 /CUMM (130-400); RBC DISTRIBUTION WIDTH 16.7 % (11.5-14.5); WHITE BLOOD CELL COUNT 9.7 /CUMM (4.8-10.8)
[2017-03-03 05:18] LABS: HEMATOCRIT 35.8 % (37-47)
[2017-03-03 08:00] VITALS: BP 132/74
--- NOTE | 2017-03-03 08:40 | PN- Resident CRCU ---
Subjective HPI/CRCU Issues: #Acute Respiratory Failure mag[place] due to opiod and bezodiazepine use overdose, vs aspitation pneumonia #History of SLE #Lower extremity venous stasis #Hyperglycemia #CHIOMA #Hyponatremia 24 Hour Events: I have seen and examined the patient. intubated and alert and oriented. we will try to extubate today. replete electrolytes. can follow commands hr 60-65, rr ac/18 4500 fio2 50% PEEP 5 o2 sat 98% ,BP 123/68 input 495 , output 900 Objective Vital Signs & I&O Last 8 Hrs of Vitals and I&O: . Intake & Output 03/06 0800 Intake Total 120 Output Total 450 Balance -330 Intake, Oral 120 Number 0 Bowel Movements Output, Urine 450 Exam General Appearance: intubated Respiratory: normal breath sounds, chest non-tender Cardiovascular: regular rate/rhythm Extremities: normal inspection, normal capillary refill Current Medications: Current Medications Sig/Howard Start time Last Medication Dose Route Stop Time Status Admin Amoxicillin/ 875 MG Q12H 03/05 0600 AC 03/06 Clavulanate Potassium PO 03/08 2300 0516 Aspirin Buffered 81 MG DAILY 03/03 1000 AC 03/05 PO 0929 Furosemide 40 MG DAILY 03/06 1000 AC PO Furosemide 40 MG DAILY 03/05 1436 DC PO Furosemide 40 MG DAILY 03/04 1430 AC 03/05 IV 0929 Heparin Sodium 5,000 UNIT Q8 03/02 2200 AC 03/06 (Porcine) SC 0516 Hydrocortisone 1 BINA TID 03/04 1730 AC 03/05 TOP 2106 Insulin Aspart 0 AT BEDTIME 03/04 2200 AC SC Insulin Aspart 0 TIDAC 03/04 1700 AC 03/05 SC 1153 Lorazepam 0.5 MG ONCE ONE 03/05 1545 DC 03/05 IV 03/05 1546 1625 Melatonin 3 MG AT BEDTIME 03/04 0330 AC 03/05 PO 2106 Metolazone 5 MG DAILY 03/06 1000 AC PO Nystatin 1 BINA TID PRN 03/04 1630 AC 03/04 TOP 2131 Pantoprazole Sodium 40 MG DAILY 03/02 2056 AC 03/05 IV 0929 Polyethylene Glycol 17 GM DAILY 03/04 1115 AC 03/05 PO 0929 Ramelteon 8 MG ONE TIME ONE 03/05 1945 DC 03/05 PO 03/05 1946 2105 Senna/Docusate Sodium 2 TAB DAILY 03/05 1152 AC 03/05 PO 1339 Impression/Plan Impression/Problem List Impression: is a 76-year-old female past medical history of lupus, lower extremity edema , anxiety, chronic pain, who presented to the emergency department after her found her unresponsive. It appears that she was respiratory failure was likely the result of increasing pain medications over the last few days. Coupled with acute kidney injury likely resulted in a decreased clearance. Benzodiazepine may have also caused some respiratory depression. Problem List #Acute Respiratory Failure magalis[place] due to opiod and bezodiazepine use overdose, vs aspitation pneumonia #Rule out ACS #Bradycardia #History of SLE #Lower extremity venous stasis #Hyperglycemia #CHIOMA #Hyponatremia #elevated LFTs plan -we will dc fluids and give iv lasix and try to extubate today -CT Chest 1. Segmental and subsegmental atelectasis in the contour upper and lower lobes dependently. Small foci of superimposed consolidation is possible. No acute mediastinal findings. 2. Appropriate positioning of the endotracheal tube. 3. Hepatic steatosis 4. Borderline splenomegal -Avoid opiod medications, may resume short acting medication in am to ensure patient does not withdraw. Hold if still sedated. -max troponin 0.11, echocardigram pending, cardiology on board -Aspirin 81 mg daily -Rapid Flu negative -check trlulon level and recheck LFts in afternoon -Keep legs elevated -Lower Extremity dopplers to rule out a DVT pending -Hb1Ac pending -we will replete low k and low phosphruos -Obtain records from [facility]. Housekeeping: IV Protonix Code FC DVT PPX: Heparin Sub Q Problem List: 1. Respiratory failure Pain Ratin Tomorrow's Labs & Rationales: cbc icu bundle Plan DVT/Prophylaxis: mechanical
--- NOTE | 2017-03-03 11:01 | PN- CRCU ---
Subjective HPI/Critical Care Issues: Continues to be intubated and more awake and not sedated. Afebrile Blood pressure is adequate Continues to be mildly bradycardic with normal sinus rhythm On 50% FiO2 with 95% saturation Continues to be on normal saline Urine output has been adequate since admission SIGNIFICANT DATA creatinine has improved to 1.3 potassium appears to be significantly low amniotic gap is normal phosphorous is low magnesium is 1.8 liver enzymes are significantly elevated Tox screen was noted White count 9.7 with a left shift hemoglobin stable at 11.5 MCV was low Platelets are 136 Cultures pending so far influenza swab negative CT scan of the chest reviewed which showed subsegmental atelectasis, mild pulmonary edema, hepatic steatosis with borderline splenomegaly. No significant consolidation Chest x-ray from this morning pending Objective Current Medications: Current Medications Sig/Howard Start time Last Medication Dose Route Stop Time Status Admin Ampicillin Sodium/ 3,000 MG Q12H 03/02 2359 AC 03/03 Sulbactam Sodium IV 0115 Sodium Chloride 100 ML Aspirin 300 MG ONCE ONE 03/025 DC 03/03 VA 03/02 2246 0114 Aspirin Buffered 81 MG DAILY 03/03 1000 AC PO Atorvastatin Calcium 10 MG 1700 03/03 1700 AC PO Furosemide 40 MG ONCE ONE 03/03 0930 DC 03/03 IV 03/03 0931 1008 Heparin Sodium 5,000 UNIT Q8 03/02 2200 AC 03/03 (Porcine) SC 0553 Insulin Human Regular 2 UNITS .STK-MED ONE 03/03 0028 DC IV 03/03 0029 Insulin Human Regular 0 Q6 03/02 2359 AC 03/03 SC 0552 Lorazepam 1 MG ONCE ONE 03/02 1930 DC 03/02 IV 03/02 193 1929 Lorazepam 0 .STK-MED ONE 03/02 192 DC .ROUTE Lorazepam 0 .STK-MED ONE 03/02 1730 DC .ROUTE Lorazepam 1 MG ONCE ONE 03/02 1715 DC 03/02 IV 03/02 171 1730 Oxycodone HCl 20 MG BID 03/03 1000 CAN PO Pantoprazole Sodium 40 MG DAILY 03/02 2056 AC 03/03 IV 0907 Potassium Chloride 10 MEQ Q1H 03/03 1015 AC IV 03/03 1116 Potassium Phosphate 15 mMol ONE ONE 03/03 1000 AC Sodium Chloride 250 ML IV 03/03 1404 Sodium Chloride 1,000 ML Q13H 03/02 2315 DC 03/02 IV 03/03 1214 2324 Sodium Chloride 1,000 ML BOLUS ONE 03/02 1615 DC 03/02 IV 03/02 1714 1631 Vital Signs & I&O Last 24 Hrs of Vitals and I&O: Vital Signs Date Time Temp Pulse Resp B/P B/P Pulse O2 O2 Flow FiO2 Mean Ox Delivery Rate 03/03 0833 50 03/03 0658 50 03/03 0409 50 03/03 0400 97 Ventilator 50% 03/03 0109 50 03/03 0000 94 Ventilator 50% 03/03 0000 98.9 62 18 122/66 94 Ventilator 50% 03/02 2213 75 03/02 2010 95 Ventilator 90% 03/02 1929 63 18 123/63 100 Ventilator 90% 03/02 1924 90 03/02 1859 60 18 116/60 99 Ventilator 100% 03/02 1836 63 18 114/63 100 Ventilator 100% 03/02 1822 62 18 109/59 100 Ventilator 100% 03/02 1751 98.0 62 18 107/59 100 Room Air 03/02 1734 61 18 108/54 100 Ventilator 100% 03/02 1722 63 18 122/59 95 Ventilator 100% 03/02 1658 64 18 116/61 97 Ventilator 100% 03/02 1648 64 18 102/69 98 Ventilator 100% 03/02 1633 62 18 91/55 98 Ventilator 100% 03/02 1631 100 03/02 1614 97.5 62 18 88/53 97 Ventilator 100% 03/02 1557 62 18 105/57 98 Ventilator 100% 03/02 1543 100 03/02 1536 98 Ventilator 100% 03/02 1526 63 18 110/62 99 Ventilator 100% Intake & Output 03/03 1600 03/03 0800 03/03 0000 Intake Total 495 1000 Output Total 750 150 Balance -255 850 Intake, IV 495 1000 Number 0 0 Bowel Movements Output, Urine 750 150 Patient 255 lb Weight Weight Bed scale Measurement Method Impression/Plan Impression/Plan Impression/Plan: DELGADO nasal intubation mild bloody secretions chest mild crackle abd soft bs Sig edema EKG noted taras with t wave changes 76 yo F with h/o ?lupus (no obvious features questionable diagnosis), chronic pain, HTN, T2DM, breast/ uterine cancer, chronic venous stasis is brought in after patient found her unresponsive at home. Pt was nasally intubated at home, and was reported as being sig taras hr in the 30s, who sub improved sig and now admitted to the icu. Pt does have history of sig narcotic use and takes oxycodone (followed by pain center). Recently she was noted to be more lethargic and has had some chestdiscomfort, fol smelling urine IMPRESSION AND ISSUES Pt with multiple issues with history of inflammatory disease ( with prob lupus and sjogrens) on immunosupp rx with * Acute resp failure with nasal intubation - prob due to narcotics, rule out sepsis * Unresponsive episode with Sig taras noted in the field with resp failure who has been nasally intubated, with troponin leak with ekg changes. Rule of IHD and ACS * Sig narcotic use for chronic pain which may have contributed her current episode. Pt has had recurrent similar admissions at an out side facility mostly due to narcotic use * Lower ext edema rule out vte * Sig elevated LFTS, prob shock liver and rule out tylenol od * Elevated probnp with acute pulm edema, prob acute mild diastolic heart failure * DM with hyperglycemia * Improving CHIOMA * hyponatremia and other electrolyte abnormality * Aspiration pna, with atx * History of NICOLE prob untreated REC Replace potassium Add tylenol level to admission labs and this ams lab and if elevated will rx with acetyl cysteine Check PT inr, and repeat lfts this pm and am IV lasix one dose Extubate and change to high flow nasal cannula and if pt fails will intubated orotracheally Hold narcotics, if signs of withdrawal then can give morphine iv q4 hrs Watch for taras LE dopplers Cont sub cut heparin and will decide on systemic anticoag if she has worsening troponin or dvt ECHo FSG with sliding scale UNasyn iv ASA, and statins Avoid betablockers Cardio to see Pt is critically ill tts 41 mins discussed with house staff
--- NOTE | 2017-03-03 13:23 | ULTRASOUND REPORT ---
EXAMINATION: US TRIPLEX OF LOWER EXTREMITIES, BILATERAL CLINICAL INFORMATION: Bilateral lower extremity edema and pain. COMPARISON: None. TECHNIQUE: Color-flow triplex imaging with spectral analysis and compression Doppler were performed on the bilateral lower extremities. FINDINGS: Respiratory variation, normal compression and augmented flow are noted throughout the lower extremities. The visualized common femoral vein, proximal greater saphenous vein, femoral vein, profunda femoral vein, popliteal vein and visualized mid calf venous segments show no evidence of deep venous thrombosis. There is no Valerio's cyst. IMPRESSION: Normal triplex scan without evidence of deep venous thrombosis involving the bilateral lower extremities.
--- NOTE | 2017-03-03 15:56 | RADIOLOGY REPORT ---
EXAMINATION: XR PORTABLE CHEST CLINICAL INFORMATION: ET tube placement COMPARISON: 03/02/[address] scan and chest x-ray TECHNIQUE: Portable AP view of the chest was obtained. The images available for my review at 1550 on 03/03/2017. FINDINGS: The x-rays taken with rotation toward the right site. There is an endotracheal tube in place with its tip located about 2.9 cm from the leah. The cardiomediastinal silhouette is stable. Opacity at the left lung base, can represent some atelectatic changes. No pneumothorax. EKG leads are projecting over the thorax. IMPRESSION: ET tube is in place. Left basilar opacity, likely atelectatic change.
[2017-03-03 16:00] VITALS: BP 120/70
--- NOTE | 2017-03-03 16:08 | Cons- Cardiology ---
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 after reportedly being found unresponsive at home. She required intubation and per report was noted to be bradycardic. She is on outpatient carvedilol for hypertension. She does not remember the episode of unresponsiveness but prior to the event denied having any recent increasing chest pain, dyspnea, palpitations, or dizziness. 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 Rosa earlier this year and had a normal outpatient transthoracic echocardiogram ; she was supposed to undergo a stress test but never had that test done. She apparently has been having some increased lethargy per her family. On my interview with her this afternoon she was on high flow nasal cannula and resting comfortably without active symptoms. She was extubated earlier. Allergies/Medications Allergies: Coded Allergies: doxycycline (UNKNOWN PER PT 03/02/17) fentanyl (PER PT "ALMOST " 03/02/17) morphine (PER PT UNKNOWN 03/02/17) Home Med List: Alprazolam 0.5 MG TABLET 0.5 TAB PO QPM SLEEP/ANXIETY (Reported) Amitriptyline HCl 50 MG TABLET 1 TAB PO DAILY ANXIETY (Reported) Aspirin (Ecotrin*) 81 MG TABLET.DR 1 TAB PO DAILY HEART/BLOOD (Reported) Atorvastatin Calcium 10 MG TABLET 1 TAB PO DAILY CHOLESTEROL (Reported) Carvedilol 25 MG TABLET 1 TAB PO BID HEART/BP (Reported) Celecoxib 200 MG CAPSULE 1 CAP PO DAILY PAIN/INFLAMMATION (Reported) Diazepam 2 MG TABLET 1 TAB PO PRN ANXIETY (Reported) Dicyclomine HCl 20 MG TABLET 1 TAB PO TID PRN GI (Reported) Esomeprazole (Nexium) 40 MG CAPSULE.DR 1 CAP PO BID GI (Reported) Furosemide 40 MG TABLET 1 TAB PO DAILY DIURETIC (Reported) Metolazone 5 MG TABLET 1 TAB PO DAILY DIURETIC (Reported) Ondansetron (Zofran Odt) 4 MG TAB.RAPDIS 1 TAB SL Q8H PRN N/V (Reported) Oxycodone HCl (Oxycontin) 20 MG TAB.ER.12H 1 TAB PO BID PAIN (Reported) Oxycodone HCl 10 MG TABLET 1 TAB PO TID PAIN (Reported) Current Medications: Current Medications Sig/Howard Start time Last Medication Dose Route Stop Time Status Admin Ampicillin Sodium/ 3,000 MG Q12H 03/02 2359 AC 03/03 Sulbactam Sodium IV 1216 Sodium Chloride 100 ML Aspirin 300 MG ONCE ONE 03/02 2245 DC 03/03 AK 03/02 2246 0114 Aspirin Buffered 81 MG DAILY 03/03 1000 AC PO Atorvastatin Calcium 10 MG 1700 03/03 1700 AC PO Furosemide 40 MG ONCE ONE 03/03 0930 DC 03/03 IV 03/03 0931 1008 Heparin Sodium 5,000 UNIT Q8 03/02 2200 AC 03/03 (Porcine) SC 1422 Insulin Human Regular 2 UNITS .STK-MED ONE 03/03 0549 DC IV 03/03 0550 Insulin Human Regular 2 UNITS .STK-MED ONE 03/03 0028 DC IV 03/03 0029 Insulin Human Regular 0 Q6 03/02 2359 AC 03/03 SC 1215 Lorazepam 1 MG ONCE ONE 03/02 1930 DC 03/02 IV 03/02 1931 1929 Lorazepam 0 .STK-MED ONE 03/02 1928 DC .ROUTE Lorazepam 0 .STK-MED ONE 03/02 1730 DC .ROUTE Lorazepam 1 MG ONCE ONE 03/02 1715 DC 03/02 IV 03/02 1716 1730 Magnesium Sulfate 1 GM Q2H 03/03 1215 AC 03/03 Dextrose/Water 100 ML IV 03/03 1614 1305 Oxycodone HCl 20 MG BID 03/03 1000 CAN PO Pantoprazole Sodium 40 MG DAILY 03/02 2056 AC 03/03 IV 0907 Phosphate 250 MG PC AND AT BEDTIME 03/03 1800 AC PO 03/04 1301 Potassium Chloride 40 MEQ ONCE ONE 03/03 1400 DC 03/03 PO 03/03 1401 1422 Potassium Chloride 10 MEQ Q1H 03/03 1015 DC 03/03 IV 03/03 1116 1302 Potassium Phosphate 15 mMol ONE ONE 03/03 1000 DC 03/03 Sodium Chloride 250 ML IV 03/03 1404 1410 Sodium Chloride 1,000 ML Q13H 03/02 2315 DC 03/02 IV 03/03 1214 2324 Sodium Chloride 1,000 ML BOLUS ONE 03/02 1615 DC 03/02 IV 03/02 1714 1631 Review of Systems Review of Systems: Review of systems as per HPI. The remainder of a 10 point review of systems was reviewed and was otherwise negative. Past History Travel History Traveled to [place] past 21 day No Medical History Blood Transfusion Hx: No Neurological: NONE EENT: SLEEP APNEA Cardiovascular: NONE Respiratory: NONE Gastrointestinal: NONE Hepatic: NONE Renal: NONE Musculoskeletal: NONE Endocrine: LUPUS DIABET Blood Disorders: anemia Cancer(s): NONE HEALTH INFORMATION MANAGERS/Reproductive: NONE Surgical History Surgical History: unobtainable Psychosocial History Where Do You Live? Home Who Do You Live With? spouse Services at Home: None Primary Language: Kazakh Smoking Status: Never Smoked ETOH Use: denies use Illicit Drug Use: denies illicit drug use Living Will? yes Functional Ability ADLs Independent: dressing, eating, toileting, bathing. Ambulation: independent IADLs Independent: shopping, housework, finances, food prep, telephone, transportation , medication admin. Employment History Employment: Disability Exam & Diagnostic Data Vital Signs and I&O Vital Signs Date Time Temp Pulse Resp B/P B/P Pulse O2 O2 Flow FiO2 Mean Ox Delivery Rate 03/03 1200 93 Ventilator 50% 03/03 1121 50 03/03 0833 50 03/03 0800 91 Ventilator 50% 03/03 0800 97.4 66 22 132/74 91 Ventilator 50% 03/03 0658 50 03/03 0409 50 03/03 0400 97 Ventilator 50% 03/03 0109 50 03/03 0000 94 Ventilator 50% 03/03 0000 98.9 62 18 122/66 94 Ventilator 50% 03/02 2213 75 03/02 2010 95 Ventilator 90% 03/02 1929 63 18 123/63 100 Ventilator 90% 03/02 1924 90 03/02 1859 60 18 116/60 99 Ventilator 100% 03/02 1836 63 18 114/63 100 Ventilator 100% 03/02 1822 62 18 109/59 100 Ventilator 100% 03/02 1751 98.0 62 18 107/59 100 Room Air 03/02 1734 61 18 108/54 100 Ventilator 100% 03/02 1722 63 18 122/59 95 Ventilator 100% 03/02 1658 64 18 116/61 97 Ventilator 100% 03/02 1648 64 18 102/69 98 Ventilator 100% 03/02 1633 62 18 91/55 98 Ventilator 100% 03/02 1631 100 03/02 1614 97.5 62 18 88/53 97 Ventilator 100% Intake & Output 03/03 1600 03/03 0800 03/03 0000 03/02 1600 03/02 0800 03/02 0000 Intake Total 2370 796 5526 100 Output Total 2850 750 150 Balance -1514 -255 850 100 Intake, IV 4985 284 9833 100 Intake, Oral 300 Number 0 0 Bowel Movements Output, Urine 2850 750 150 Patient 255 lb 260 lb Weight Weight Bed scale Estimated Measurement Method Physical Exam: General: no apparent distress. Alert. On high flow nasal cannula oxygen Eyes: No obvious scleral icterus. HEENT: No jugular venous distention or abnormal jugular venous pulsations. Cardiovascular: Normal intensity S1/S2. PMI not grossly displaced. Respiratory: Decreased air entry bilaterally Abdomen: Soft, nontender with no guarding or rebound tenderness. Musculoskeletal: No clubbing or cyanosis noted; 3+ bilateral lower extremity edema Skin: Stasis changes noted Neurologic: No gross focal deficits noted. Labs/Edmund Results: Laboratory Tests 03/03 03/03 0528 0455 Blood Gas pH (7.35 - 7.45 PH) 7.56 H pCO2 (35 - 45 TORR) 37 pO2 (80 - 100 TORR) 61 L HCO3 (21 - 28 MEQ/L) 33 H ABG O2 Sat (Measured) (>96.0 %) 91.0 L P-50 (Temp Corrected) Y Carboxyhemoglobin (1.5 - 5.0 %) 0.6 L O2 Concentration % 50% Temperature (97.0 - 100.0 FARH) 97.7 Respiration Rate (BPM) 18 O2 Delivery Method ESPRIT Vent Mode AC Expiratory Pressure (CMH2O/P) 5 Tidal Volume (CC) 450 Hematology CBC w Diff Cancelled WBC Cancelled RBC Cancelled Hgb Cancelled Hct Cancelled MCV Cancelled MCH Cancelled RDW Cancelled Plt Count Cancelled MPV Cancelled PUBS MCHC Cancelled Miscellaneous Phlebotomy Draw Site RIGHT RADIAL 03/03 03/03 03/02 0422 0101 2158 Chemistry Sodium (137 - 145 mmol/L) 139 Potassium (3.5 - 5.1 mmol/L) 3.3 L Chloride (98 - 107 mmol/L) 96 L Carbon Dioxide (22 - 30 mmol/L) 33 H Anion Gap (5 - 16) 11 BUN (7 - 17 mg/dL) 45 H Creatinine (0.5 - 1.0 mg/dL) 1.3 H Estimated GFR (>60 ml/min) 40 L Glucose (65 - 99 mg/dL) 111 H Lactic Acid (0.7 - 2.1 mmol/L) 1.7 2.2 H Calcium (8.4 - 10.2 mg/dL) 7.9 L Phosphorus (2.5 - 4.5 mg/dL) 2.4 L Magnesium (1.6 - 2.3 mg/dL) 1.8 Total Bilirubin (0.2 - 1.3 mg/dL) 0.6 AST (14 - 36 U/L) 5959 H ALT (9 - 52 U/L) 3934 H Creatine Kinase (30 - 135 U/L) 106 Troponin I (< 0.11 ng/ml) 0.08 0.11 *H Albumin (3.5 - 5.0 g/dL) 2.6 L Cortisol PM Sample (1.7 - 14.1) 24.2 H Hematology CBC w Diff MAN DIFF ORDERED WBC (4.8 - 10.8 /CUMM) 9.7 RBC (4.20 - 5.40 /CUMM) 4.60 Hgb (12.0 - 16.0 G/DL) 11.5 L Hct (37 - 47 %) 35.8 L MCV (81.0 - 99.0 FL) 77.9 L MCH (27.0 - 31.0 PG) 25.0 L RDW (11.5 - 14.5 %) 16.7 H Plt Count (130 - 400 /CUMM) 136 MPV (7.4 - 10.4 FL) 8.8 Gran % (42.2 - 75.2 %) 86.5 H Lymphocytes % (20.5 - 51.1 %) 12.3 L Monocytes % (1.7 - 9.3 %) 0.6 L Eosinophils % (0 - 5 %) 0.3 Basophils % (0.0 - 2.0 %) 0.3 Absolute Granulocytes (1.4 - 6.5 /CUMM) 8.4 H Segmented Neutrophils (42.2 - 75.2 %) 77 H Band Neutrophils (0.0 - 5.0 %) 1 Absolute Lymphocytes (1.2 - 3.4 /CUMM) 1.2 Lymphocytes (20.5 - 51.1 %) 18 L Monocytes (1.7 - 9.3 %) 4 Absolute Monocytes (0.10 - 0.60 /CUMM) 0.1 Absolute Eosinophils (0.0 - 0.7 /CUMM) 0 Absolute Basophils (0.0 - 0.2 /CUMM) 0 Platelet Estimate (ADEQUATE) DECREASED Hypochromic-Microcytic 1+ PUBS MCHC (33.0 - 37.0 G/DL) 32.0 L Toxicology Acetaminophen (10.0 - 30.0 ug/mL) < 10.0 L 03/02 03/02 193 1610 Blood Gas pH (7.35 - 7.45 PH) 7.40 pCO2 (35 - 45 TORR) 45 pO2 (80 - 100 TORR) 84 HCO3 (21 - 28 MEQ/L) 27 ABG O2 Sat (Measured) (>96.0 %) 94.0 L P-50 (Temp Corrected) N Carboxyhemoglobin (1.5 - 5.0 %) 1.8 O2 Concentration % 100 Temperature (97.0 - 100.0 FARH) 97.5 Respiration Rate (BPM) 18 O2 Delivery Method ESPRIT Vent Mode AC Expiratory Pressure (CMH2O/P) 5 Tidal Volume (CC) 450 Miscellaneous Phlebotomy Draw Site LEFT RADIAL Toxicology Urine Opiates Screen (>2000 NG/ML) 999.00 Methadone Screen (>300 NG/ML) 50 Barbiturate Screen (>200 NG/ML) < 60 Ur Phencyclidine Scrn (>25 NG/ML) < 6.00 Amphetamines Screen (>1000 NG/ML) < 100 U Benzodiazepines Scrn (>200 NG/ML) 231 H Urine Cocaine Screen (>300 NG/ML) < 50 Urine Cannabis Screen (>50 NG/ML) < 5.00 Urines Urinalysis MANY H Urine Color (YEL,AMB,STR) YAIMA Urine Clarity (CLEAR) HAZY H Urine pH (5.0 - 8.0) 6.0 Ur Specific Farrell (1.001 - 1.035) 1.025 Urine Protein (NEG,<30 MG/DL) 100 H Urine Ketones (NEG) NEG Urine Nitrite (NEG) NEG Urine Bilirubin (NEG) NEG Urine Urobilinogen (0.1 - 1.0 EU/dl) 1.0 Ur Leukocyte Esterase (NEG) NEG Ur Microscopic SEDIMENT EXAMINED Urine RBC (0 - 5 /HPF) 5-10 H Urine WBC (0 - 2 /HPF) 1-3 H Ur Epithelial Cells (NONE,FEW) FEW Urine Bacteria (NEG/NONE) MANY H Urine Hemoglobin (NEG) MOD H Urine Glucose (N MG/DL) NEG 03/02 1520 Chemistry Sodium (137 - 145 mmol/L) 135 L Potassium (3.5 - 5.1 mmol/L) 4.7 Chloride (98 - 107 mmol/L) 91 L Carbon Dioxide (22 - 30 mmol/L) 33 H Anion Gap (5 - 16) 12 BUN (7 - 17 mg/dL) 49 H Creatinine (0.5 - 1.0 mg/dL) 1.8 H Estimated GFR (>60 ml/min) 28 L BUN/Creatinine Ratio (7 - 25 %) 27.2 H Glucose (65 - 99 mg/dL) 114 H Hemoglobin A1c (4.2 - 5.8 %) Pending Calcium (8.4 - 10.2 mg/dL) 8.0 L Magnesium (1.6 - 2.3 mg/dL) 2.2 Troponin I (< 0.11 ng/ml) 0.08 [id number] Pept (<125 pg/mL) 39695 H Hematology CBC w Diff MAN DIFF ORDERED WBC (4.8 - 10.8 /CUMM) 11.7 H RBC (4.20 - 5.40 /CUMM) 5.49 H Hgb (12.0 - 16.0 G/DL) 13.4 Hct (37 - 47 %) 43.7 MCV (81.0 - 99.0 FL) 79.6 L MCH (27.0 - 31.0 PG) 24.4 L RDW (11.5 - 14.5 %) 16.5 H Plt Count (130 - 400 /CUMM) 180 MPV (7.4 - 10.4 FL) 8.4 Gran % (42.2 - 75.2 %) 86.3 H Lymphocytes % (20.5 - 51.1 %) 9.2 L Monocytes % (1.7 - 9.3 %) 4.5 Eosinophils % (0 - 5 %) 0 Basophils % (0.0 - 2.0 %) 0 Absolute Granulocytes (1.4 - 6.5 /CUMM) 10.1 H Segmented Neutrophils (42.2 - 75.2 %) 84 H Absolute Lymphocytes (1.2 - 3.4 /CUMM) 1.1 L Lymphocytes (20.5 - 51.1 %) 10 L Monocytes (1.7 - 9.3 %) 6 Absolute Monocytes (0.10 - 0.60 /CUMM) 0.5 Absolute Eosinophils (0.0 - 0.7 /CUMM) 0 Absolute Basophils (0.0 - 0.2 /CUMM) 0 Platelet Estimate (ADEQUATE) ADEQUATE Polychromasia 1+ Hypochromic-Microcytic 1+ Poikilocytosis 1+ Basophilic Stippling RARE Anisocytosis 1+ Microcytic Cells 1+ PUBS MCHC (33.0 - 37.0 G/DL) 30.6 L Other Body Source Fld Total RBCs Counted (%) 100 Toxicology Acetaminophen (10.0 - 30.0 ug/mL) < 10.0 L Diagnostic Data EKG Results Tracing was personally reviewed and shows a sinus rhythm with prolonged QT interval and nonspecific T-wave abnormality CXR Results ET tube is in place. Left basilar opacity, likely atelectatic change. Other Results Telemetry tracings were personally reviewed and shows sinus rhythm Assessment/Plan Assessment/Plan 1. Respiratory failure possibly due to narcotics with the concern for aspiration pneumonia 2. Acute kidney injury, improving 3. Minimal troponin elevation likely due to acute kidney injury/respiratory failure 4. Chronic venous insufficiency/lymphedema 5. History of hypertension 6. Transient bradycardia; likely vagal in etiology 7. Elevated liver enzymes 8. Abnormal EKG The patient reportedly had transient bradycardia which was likely vagal in etiology on top of being on outpatient beta lisa therapy for hypertension. Can hold beta blockers for the time being. Agree with obtaining an echocardiogram. Agree with maintaining a negative fluid balance as her creatinine is improving. The minimal troponin elevation is not consistent with myocardial infarction. Can continue with low-dose aspirin therapy but would not give her statin therapy in the setting of elevated LFTs. Her heart rate is now low normal on telemetry with no evidence of advanced heart block or prolonged pauses. Az Noriega MD [facility] Consult Acknowledgment - Thank you for your consult request.
[2017-03-03 22:11] LABS: PT 16.2 SEC (9.4-12.5); PTT 27 SEC (25-37)
[2017-03-04] VITALS: BP 124/80
[2017-03-04 04:59] LABS: ABSOLUTE BASOPHIL COUNT 0 /CUMM (0.0-0.2); ABSOLUTE EOSINOPHIL COUNT 0.1 /CUMM (0.0-0.7); ABSOLUTE GRANULOCYTE CT 6.4 /CUMM (1.4-6.5); ABSOLUTE LYMPH COUNT 1.2 /CUMM (1.2-3.4); ABSOLUTE MONOCYTE COUNT 0.2 /CUMM (0.10-0.60); BASOPHIL % 0.2 % (0.0-2.0); EOSINOPHIL % 1.4 % (0-5); GRANULOCYTE % 80.8 % (42.2-75.2); MEAN CORPUSCULAR HGB 24.7 PG (27.0-31.0); MEAN CORPUSCULAR HGB CONC 31.2 G/DL (33.0-37.0); MEAN CORPUSCULAR VOLUME 79.1 FL (81.0-99.0); MEAN PLATELET VOLUME 8.5 FL (7.4-10.4); PLATELET COUNT 155 /CUMM (130-400); RBC DISTRIBUTION WIDTH 16.4 % (11.5-14.5); RED BLOOD CELL CT 5.47 /CUMM (4.20-5.40)
[2017-03-04 05:26] LABS: HEMATOCRIT 43.3 % (37-47)
[2017-03-04 08:00] VITALS: BP 110/70
--- NOTE | 2017-03-04 08:46 | PN- Resident CRCU ---
Subjective HPI/CRCU Issues: Ms. Atkinson was seen and examined this morning. She is per resting comfortably in bed. She appears and laconic, however was able to respond to questions adequately. She appears more alert compared to our previous interaction. Denies any active issues although endorses mild pain throughout. When asked to further explain, she is unable to do so. Denies any fever, chills, nausea, vomiting. She is unsure as reason why she was brought into the hospital. States that she would like to ambulate at some point today. She is also still nothing by mouth awaiting a formal swallow evaluation. 24 Hour Events: Downgraded to tele Objective Vital Signs & I&O Last 8 Hrs of Vitals and I&O: T: 96.5-99.0 HR: 55-62 SR. 110/63-144/59. AC-18-450. 50% 5. 91%. Intake: 2016. Output: 4690. Exam General Appearance: well developed/nourished Respiratory: normal breath sounds Cardiovascular: regular rate/rhythm, edema Gastrointestinal: normal bowel sounds, soft, non-tender Extremities: normal inspection, normal capillary refill, no edema Cranial Nerves: normal speech Skin: intact Weaning Parameters NIF: 23 Minute Volume: 8.44 Resp rate: 20 Vt: 445 Heart Rate: 68 Weaning Schedule Start Time: 1015 Minute Volume: 4.8 Resp Rate: 12 Vt: 414 Heart Rate: 70 End Time: 1306 Current Medications: Current Medications Sig/Howard Start time Last Medication Dose Route Stop Time Status Admin Amoxicillin/ 875 MG Q12 03/04 1430 AC Clavulanate Potassium PO Ampicillin Sodium/ 3,000 MG Q12H 03/02 2359 DC 03/04 Sulbactam Sodium IV 1220 Sodium Chloride 100 ML Aspirin Buffered 81 MG DAILY 03/03 1000 AC 03/04 PO 0931 Atorvastatin Calcium 10 MG 1700 03/04 1700 AC PO Atorvastatin Calcium 10 MG 1700 03/03 1700 CAN PO Furosemide 40 MG DAILY 03/04 1430 AC IV Heparin Sodium 5,000 UNIT Q8 03/02 2200 AC 03/04 (Porcine) SC 0545 Insulin Aspart 0 AT BEDTIME 03/04 2200 AC SC Insulin Aspart 0 TIDAC 03/04 1700 AC SC Insulin Human Regular 2 UNITS .ST-MED ONE 03/04 0541 DC IV 03/04 0542 Insulin Human Regular 2 UNITS .STK-MED ONE 03/04 0012 DC IV 03/04 0013 Insulin Human Regular 2 UNITS .STK-MED ONE 03/03 1824 DC IV 03/03 1825 Insulin Human Regular 0 Q6 03/02 2359 DC 03/04 SC 1305 Magnesium Sulfate 1 GM Q2H 03/03 1215 DC 03/03 Dextrose/Water 100 ML IV 03/03 1614 1305 Melatonin 3 MG AT BEDTIME 03/04 2200 DC PO Melatonin 3 MG AT BEDTIME 03/04 0330 AC PO Nitroglycerin 0.4 MG .STK-MED ONE 03/04 0651 DC SL 03/04 0652 Pantoprazole Sodium 40 MG DAILY 03/02 2056 AC 03/04 IV 0931 Phosphate 250 MG PC AND AT BEDTIME 03/03 1800 DC 03/04 PO 03/04 1301 1220 Polyethylene Glycol 17 GM DAILY 03/04 1115 AC 03/04 PO 1220 Potassium Chloride 40 MEQ ONCE ONE 03/04 1800 AC PO 03/04 1801 Potassium Chloride 40 MEQ ONCE ONE 03/04 1430 DC PO 03/04 1431 Potassium Phosphate 15 mMol ONE ONE 03/04 1130 AC Sodium Chloride 250 ML IV 03/04 1534 Impression/Plan Impression/Problem List Impression: is a 76-year-old female past medical history of lupus, lower extremity edema , anxiety, chronic pain, who presented to the emergency department after her found her unresponsive. It appears that she was respiratory failure was likely the result of increasing pain medications over the last few days. Coupled with acute kidney injury likely resulted in a decreased clearance. Benzodiazepine may have also caused some respiratory depression. Problem List #Acute Respiratory Failure likley due to opiod and bezodiazepine use overdose, vs aspitation pneumonia #Bradycardia #History of SLE #Lower extremity venous stasis #Hyperglycemia #CHIOMA #Hyponatremia #elevated LFTs Plan -The patient was successfully extubated 03/03/2017. -Unasyn--> Augmentin 875 mg BID, to continue until 03/08/2017. -Lasix 40 mg. Monitor I's and Outs -max troponin 0.11, echocardigram pending, cardiology on board -Keep legs elevated -Lower Extremity dopplers to rule out a DVT pending: -Hb1Ac pending -Replete Electrolytes, maintain K of 4. Aggressively replete K. -Continue to hold BB. -Continue Aspirin. Statin being held due to Elevated liver enzymes. -Obtain records from [facility]. -Chest X-Ray tomorrow. -Echo in AM Housekeeping: IV Protonix Code FC DVT PPX: Heparin Sub Q Problem List: 1. Respiratory failure Pain Ratin Tomorrow's Labs & Rationales: CBC: Monitor H/H ICU Bundle: monitor electrolytes Plan DVT/Prophylaxis: mechanical, pharmacological ICU Bundle: monitor electrolytes
--- NOTE | 2017-03-04 11:25 | PN- CRCU ---
Subjective HPI/Critical Care Issues: Slowly improving Still continues to be on 50% high flow Does not complain of any pain Afebrile Blood pressure is adequate Oxygen saturation 97% Did receive Lasix with more than 4.6 L urine output yesterday Significant data reviewed creatinine improved to 0.8 BUN is 34 Potassium is 3.5 Bicarbonate is 39 SHAQUILLE LT down to 3000 604,600 Total bilirubin is normal Tylenol level were low ProBNP initially upon admission was elevated White count 8.0 Hemoglobin 13.5 platelets 155 Ultrasound of the lower extremity were unremarkable Last chest x-ray showed bibasilar opacity Chest CT showed subsegmental atelectasis CHF hepatic steatosis and borderline splenomegaly Objective Current Medications: Current Medications Sig/Howard Start time Last Medication Dose Route Stop Time Status Admin Ampicillin Sodium/ 3,000 MG Q12H 03/02 2359 AC 03/04 Sulbactam Sodium IV 0013 Sodium Chloride 100 ML Aspirin Buffered 81 MG DAILY 03/03 1000 AC 03/04 PO 0931 Atorvastatin Calcium 10 MG 1700 03/03 1700 CAN PO Heparin Sodium 5,000 UNIT Q8 03/02 2200 AC 03/04 (Porcine) [place] 0545 Insulin Aspart 2 UNITS .STK-MED ONE 03/03 1212 DC SC 03/03 1213 Insulin Human Regular 2 UNITS .STK-MED ONE 03/04 0012 DC IV 03/04 0013 Insulin Human Regular 2 UNITS .STK-MED ONE 03/03 1824 DC IV 03/03 1825 Insulin Human Regular 2 UNITS .STK-MED ONE 03/03 1214 DC IV 03/03 1215 Insulin Human Regular 0 Q6 03/02 2359 AC 03/04 SC 0544 Magnesium Sulfate 1 GM Q2H 03/03 1215 DC 03/03 Dextrose/Water 100 ML IV 03/03 1614 1305 Melatonin 3 MG AT BEDTIME 03/04 2200 DC PO Melatonin 3 MG AT BEDTIME 03/04 0330 AC PO Pantoprazole Sodium 40 MG DAILY 03/02 2056 AC 03/04 IV 0931 Phosphate 250 MG PC AND AT BEDTIME 03/03 1800 AC 03/04 PO 03/04 1301 0932 Polyethylene Glycol 17 GM DAILY 03/04 1115 AC PO Potassium Chloride 40 MEQ ONCE ONE 03/03 1400 DC 03/03 PO 03/03 1401 1422 Potassium Phosphate 15 mMol ONE ONE 03/04 1130 UNVr Sodium Chloride 250 ML IV 03/04 1534 Potassium Phosphate 15 mMol ONE ONE 03/03 1000 DC 03/03 Sodium Chloride 250 ML IV 03/03 1404 1410 Vital Signs & I&O Last 24 Hrs of Vitals and I&O: Vital Signs Date Time Temp Pulse Resp B/P B/P Pulse O2 O2 Flow FiO2 Mean Ox Delivery Rate 03/04 0400 97 Nasal 50% Cannula 03/04 0054 94 Nasal 50% Cannula 03/04 0000 95 Nasal 50% Cannula 03/04 0000 97.1 62 20 124/80 95 Nasal 50% Cannula 03/03 2302 94 Nasal 50% Cannula 03/03 2000 95 Nasal 50% Cannula 03/03 2000 95 Nasal 50% Cannula 03/03 1600 93 Nasal 50% Cannula 03/03 1600 99.0 58 16 120/70 93 Nasal 50% Cannula 03/03 1200 93 Ventilator 50% Intake & Output 03/04 1600 03/04 0800 03/04 0000 Intake Total 270 360 Output Total 800 1040 Balance -530 -680 Intake, IV 120 Intake, Oral 150 360 Number 0 Bowel Movements Output, Urine 800 1040 Laboratory Tests 03/04 03/04 03/03 0650 0400 2049 Chemistry Sodium (137 - 145 mmol/L) 141 140 Potassium (3.5 - 5.1 mmol/L) 3.5 3.9 Chloride (98 - 107 mmol/L) 95 L 94 L Carbon Dioxide (22 - 30 mmol/L) 39 H 38 H Anion Gap (5 - 16) 7 8 BUN (7 - 17 mg/dL) 34 H 38 H Creatinine (0.5 - 1.0 mg/dL) 0.8 0.9 Estimated GFR (>60 ml/min) > 60 > 60 Glucose (65 - 99 mg/dL) 96 119 H Calcium (8.4 - 10.2 mg/dL) 8.2 L 8.2 L Phosphorus (2.5 - 4.5 mg/dL) 2.8 3.1 Magnesium (1.6 - 2.3 mg/dL) 2.2 2.4 H Total Bilirubin (0.2 - 1.3 mg/dL) 0.7 0.7 Direct Bilirubin (< 0.4 mg/dL) 0.5 H AST (14 - 36 U/L) 3659 H 4274 H ALT (9 - 52 U/L) 4603 H 4554 H Alkaline Phosphatase (<127 U/L) 140 H Troponin I (< 0.11 ng/ml) Cancelled 0.02 Total Protein (6.3 - 8.2 g/dL) 5.1 L Albumin (3.5 - 5.0 g/dL) 2.5 L 2.6 L Coagulation PT (9.4 - 12.5 SEC) 16.2 H INR (0.90 - 1.19) 1.55 H APTT (25 - 37 SEC) 27 Hematology CBC w Diff NO MAN DIFF REQ WBC (4.8 - 10.8 /CUMM) 8.0 RBC (4.20 - 5.40 /CUMM) 5.47 H Hgb (12.0 - 16.0 G/DL) 13.5 Hct (37 - 47 %) 43.3 MCV (81.0 - 99.0 FL) 79.1 L MCH (27.0 - 31.0 PG) 24.7 L RDW (11.5 - 14.5 %) 16.4 H Plt Count (130 - 400 /CUMM) 155 MPV (7.4 - 10.4 FL) 8.5 Gran % (42.2 - 75.2 %) 80.8 H Lymphocytes % (20.5 - 51.1 %) 15.1 L Monocytes % (1.7 - 9.3 %) 2.5 Eosinophils % (0 - 5 %) 1.4 Basophils % (0.0 - 2.0 %) 0.2 Absolute Granulocytes (1.4 - 6.5 /CUMM) 6.4 Absolute Lymphocytes (1.2 - 3.4 /CUMM) 1.2 Absolute Monocytes (0.10 - 0.60 /CUMM) 0.2 Absolute Eosinophils (0.0 - 0.7 /CUMM) 0.1 Absolute Basophils (0.0 - 0.2 /CUMM) 0 PUBS MCHC (33.0 - 37.0 G/DL) 31.2 L 03/03 03/03 0528 0455 Blood Gas pH (7.35 - 7.45 PH) 7.56 H pCO2 (35 - 45 TORR) 37 pO2 (80 - 100 TORR) 61 L HCO3 (21 - 28 MEQ/L) 33 H ABG O2 Sat (Measured) (>96.0 %) 91.0 L P-50 (Temp Corrected) Y Carboxyhemoglobin (1.5 - 5.0 %) 0.6 L O2 Concentration % 50% Temperature (97.0 - 100.0 FARH) 97.7 Respiration Rate (BPM) 18 O2 Delivery Method ESPRIT Vent Mode AC Expiratory Pressure (CMH2O/P) 5 Tidal Volume (CC) 450 Hematology CBC w Diff Cancelled WBC Cancelled RBC Cancelled Hgb Cancelled Hct Cancelled MCV Cancelled MCH Cancelled RDW Cancelled Plt Count Cancelled MPV Cancelled PUBS MCHC Cancelled Miscellaneous Phlebotomy Draw Site RIGHT RADIAL 03/03 03/03 03/02 0422 0101 2158 Chemistry Sodium (137 - 145 mmol/L) 139 Potassium (3.5 - 5.1 mmol/L) 3.3 L Chloride (98 - 107 mmol/L) 96 L Carbon Dioxide (22 - 30 mmol/L) 33 H Anion Gap (5 - 16) 11 BUN (7 - 17 mg/dL) 45 H Creatinine (0.5 - 1.0 mg/dL) 1.3 H Estimated GFR (>60 ml/min) 40 L Glucose (65 - 99 mg/dL) 111 H Lactic Acid (0.7 - 2.1 mmol/L) 1.7 2.2 H Calcium (8.4 - 10.2 mg/dL) 7.9 L Phosphorus (2.5 - 4.5 mg/dL) 2.4 L Magnesium (1.6 - 2.3 mg/dL) 1.8 Total Bilirubin (0.2 - 1.3 mg/dL) 0.6 AST (14 - 36 U/L) 5959 H ALT (9 - 52 U/L) 3934 H Creatine Kinase (30 - 135 U/L) 106 Troponin I (< 0.11 ng/ml) 0.08 0.11 *H Albumin (3.5 - 5.0 g/dL) 2.6 L Cortisol PM Sample (1.7 - 14.1) 24.2 H Hematology CBC w Diff MAN DIFF ORDERED WBC (4.8 - 10.8 /CUMM) 9.7 RBC (4.20 - 5.40 /CUMM) 4.60 Hgb (12.0 - 16.0 G/DL) 11.5 L Hct (37 - 47 %) 35.8 L MCV (81.0 - 99.0 FL) 77.9 L MCH (27.0 - 31.0 PG) 25.0 L RDW (11.5 - 14.5 %) 16.7 H Plt Count (130 - 400 /CUMM) 136 MPV (7.4 - 10.4 FL) 8.8 Gran % (42.2 - 75.2 %) 86.5 H Lymphocytes % (20.5 - 51.1 %) 12.3 L Monocytes % (1.7 - 9.3 %) 0.6 L Eosinophils % (0 - 5 %) 0.3 Basophils % (0.0 - 2.0 %) 0.3 Absolute Granulocytes (1.4 - 6.5 /CUMM) 8.4 H Segmented Neutrophils (42.2 - 75.2 %) 77 H Band Neutrophils (0.0 - 5.0 %) 1 Absolute Lymphocytes (1.2 - 3.4 /CUMM) 1.2 Lymphocytes (20.5 - 51.1 %) 18 L Monocytes (1.7 - 9.3 %) 4 Absolute Monocytes (0.10 - 0.60 /CUMM) 0.1 Absolute Eosinophils (0.0 - 0.7 /CUMM) 0 Absolute Basophils (0.0 - 0.2 /CUMM) 0 Platelet Estimate (ADEQUATE) DECREASED Hypochromic-Microcytic 1+ PUBS MCHC (33.0 - 37.0 G/DL) 32.0 L Toxicology Acetaminophen (10.0 - 30.0 ug/mL) < 10.0 L 03/02 03/02 193 1610 Blood Gas pH (7.35 - 7.45 PH) 7.40 pCO2 (35 - 45 TORR) 45 pO2 (80 - 100 TORR) 84 HCO3 (21 - 28 MEQ/L) 27 ABG O2 Sat (Measured) (>96.0 %) 94.0 L P-50 (Temp Corrected) N Carboxyhemoglobin (1.5 - 5.0 %) 1.8 O2 Concentration % 100 Temperature (97.0 - 100.0 FARH) 97.5 Respiration Rate (BPM) 18 O2 Delivery Method ESPRIT Vent Mode AC Expiratory Pressure (CMH2O/P) 5 Tidal Volume (CC) 450 Miscellaneous Phlebotomy Draw Site LEFT RADIAL Toxicology Urine Opiates Screen (>2000 NG/ML) 999.00 Methadone Screen (>300 NG/ML) 50 Barbiturate Screen (>200 NG/ML) < 60 Ur Phencyclidine Scrn (>25 NG/ML) < 6.00 Amphetamines Screen (>1000 NG/ML) < 100 U Benzodiazepines Scrn (>200 NG/ML) 231 H Urine Cocaine Screen (>300 NG/ML) < 50 Urine Cannabis Screen (>50 NG/ML) < 5.00 Urines Urinalysis MANY H Urine Color (YEL,AMB,STR) YAIMA Urine Clarity (CLEAR) HAZY H Urine pH (5.0 - 8.0) 6.0 Ur Specific [place] (1.001 - 1.035) 1.025 Urine Protein (NEG,<30 MG/DL) 100 H Urine Ketones (NEG) NEG Urine Nitrite (NEG) NEG Urine Bilirubin (NEG) NEG Urine Urobilinogen (0.1 - 1.0 EU/dl) 1.0 Ur Leukocyte Esterase (NEG) NEG Ur Microscopic SEDIMENT EXAMINED Urine RBC (0 - 5 /HPF) 5-10 H Urine WBC (0 - 2 /HPF) 1-3 H Ur Epithelial Cells (NONE,FEW) FEW Urine Bacteria (NEG/NONE) MANY H Urine Hemoglobin (NEG) MOD H Urine Glucose (N MG/DL) NEG 03/02 1520 Chemistry Sodium (137 - 145 mmol/L) 135 L Potassium (3.5 - 5.1 mmol/L) 4.7 Chloride (98 - 107 mmol/L) 91 L Carbon Dioxide (22 - 30 mmol/L) 33 H Anion Gap (5 - 16) 12 BUN (7 - 17 mg/dL) 49 H Creatinine (0.5 - 1.0 mg/dL) 1.8 H Estimated GFR (>60 ml/min) 28 L BUN/Creatinine Ratio (7 - 25 %) 27.2 H Glucose (65 - 99 mg/dL) 114 H Hemoglobin A1c (4.2 - 5.8 %) Pending Calcium (8.4 - 10.2 mg/dL) 8.0 L Magnesium (1.6 - 2.3 mg/dL) 2.2 Troponin I (< 0.11 ng/ml) 0.08 [id number] Pept (<125 pg/mL) 04699 H Hematology CBC w Diff MAN DIFF ORDERED WBC (4.8 - 10.8 /CUMM) 11.7 H RBC (4.20 - 5.40 /CUMM) 5.49 H Hgb (12.0 - 16.0 G/DL) 13.4 Hct (37 - 47 %) 43.7 MCV (81.0 - 99.0 FL) 79.6 L MCH (27.0 - 31.0 PG) 24.4 L RDW (11.5 - 14.5 %) 16.5 H Plt Count (130 - 400 /CUMM) 180 MPV (7.4 - 10.4 FL) 8.4 Gran % (42.2 - 75.2 %) 86.3 H Lymphocytes % (20.5 - 51.1 %) 9.2 L Monocytes % (1.7 - 9.3 %) 4.5 Eosinophils % (0 - 5 %) 0 Basophils % (0.0 - 2.0 %) 0 Absolute Granulocytes (1.4 - 6.5 /CUMM) 10.1 H Segmented Neutrophils (42.2 - 75.2 %) 84 H Absolute Lymphocytes (1.2 - 3.4 /CUMM) 1.1 L Lymphocytes (20.5 - 51.1 %) 10 L Monocytes (1.7 - 9.3 %) 6 Absolute Monocytes (0.10 - 0.60 /CUMM) 0.5 Absolute Eosinophils (0.0 - 0.7 /CUMM) 0 Absolute Basophils (0.0 - 0.2 /CUMM) 0 Platelet Estimate (ADEQUATE) ADEQUATE Polychromasia 1+ Hypochromic-Microcytic 1+ Poikilocytosis 1+ Basophilic Stippling RARE Anisocytosis 1+ Microcytic Cells 1+ PUBS MCHC (33.0 - 37.0 G/DL) 30.6 L Other Body Source Fld Total RBCs Counted (%) 100 Toxicology Acetaminophen (10.0 - 30.0 ug/mL) < 10.0 L Microbiology Date/Time Procedure - Status Source Growth 03/03 0101 Blood Culture - RECD BLOOD 03/03 0058 Blood Culture - RECD BLOOD 03/02 2200 Respiratory Culture - COMP LOWER RESP 03/02 2200 Gram Stain - COMP LOWER RESP 03/02 2048 Influenza Virus A & B Rapid Smear - COMP NASOPHARYN 03/02 2016 Surveillance Culture - CAN UPPER RESP Cancelled: Cancelled via OE: DUPLICATE 03/02 2016 Surveillance Culture - COMP UPPER RESP 03/02 2016 Surveillance Culture - CAN GI Cancelled: Cancelled via OE: DUPLICATE 03/02 2016 Surveillance Culture - COMP GI Impression/Plan Impression/Plan Impression/Plan: DELGADO On high flow nasal cannula mild bloody secretions, through the nostril chest mild crackles abd soft bs Sig edema EKG noted 76 yo F with h/o ?lupus (no obvious features questionable diagnosis), chronic pain, HTN, T2DM, breast/ uterine cancer, chronic venous stasis is brought in after patient found her unresponsive at home. Pt was nasally intubated at home, and was reported as being sig taras hr in the 30s, who sub improved sig and now admitted to the icu. Pt does have history of sig narcotic use and takes oxycodone (followed by pain center). Recently she was noted to be more lethargic and has had some chestdiscomfort, fol smelling urine IMPRESSION AND ISSUES Pt with multiple issues with history of inflammatory disease ( with prob lupus and sjogrens) on immunosupp rx with * Acute resp failure with s/p nasal intubation, now extubated- prob due to narcotics, rule out sepsis (this seems less likely) * Short period of Unresponsive episode with Sig taras noted in the field with resp failure who was nasally intubated, with troponin leak with ekg changes. Rule of IHD and ACS * Sig narcotic use for chronic pain which may have contributed her current episode. Pt has had recurrent similar admissions at an out side facility mostly due to narcotic use * Lower ext edema, chronic no evidence suggestive of venous thromboembolism, ultrasound negative * Sig elevated LFTS, prob shock liver which is improving and Tylenol level is normal * Elevated pro bnp with acute pulm edema, prob acute mild diastolic heart failure, status post diuresis since yesterday * DM with hyperglycemia * Resolved CHIOMA * hyponatremia and other electrolyte abnormality, improving * Aspiration pna, with atx * History of NICOLE prob untreated REC Give potassium 40 mEq 3 doses today Intravenous Lasix 40 mg daily Follow liver enzymes Hold narcotics and if there is any signs of withdrawal we will give morphine MiraLAX Out of bed to chair Discontinue Unasyn and start her on by mouth Augmentin 875 twice a day for 4 more days Continue proton pump inhibitor Out of bed to chair Wean down oxygen Repeat chest x-ray tomorrow Echo pending FSG with sliding scale ASA, and statins Avoid betablockers Cardio to follow Pt is critically ill tts 41 mins
[2017-03-04 16:00] VITALS: BP 110/60
--- NOTE | 2017-03-04 18:44 | ECHOCARDIOGRAM REPORT ---
KATIE PHAN Age: 76 : 1940 Gender: F Exam Date: 03/04/2017 08:49 Exam Location: [facility] Ht (in): 64 Wt (lb): 260 BSA: 2.37 BP: 124 / 80 Ordering Physician: Akash Galindo MD Referring Physician: Salty Noriega M.D. Technologist: Lay Au ASHLY Room Number: 111 Indications: EVALUATION OF ASCENDING AORTA Rhythm: Technical Quality: Technically difficult study FINDINGS Left Ventricle Left ventricular cavity size normal. Left ventricular wall thickness mildly increased. No obvious regional wall motion abnormalities. Left ventricular ejection fraction is estimated at > 55 %. Right Ventricle Right ventricle not well visualized, grossly normal. Right Atrium Right atrium not well visualized, grossly normal. Left Atrium Normal left atrial size. Mitral Valve Mitral valve not well visualized, grossly normal. Trace mitral regurgitation. No mitral stenosis. Aortic Valve No aortic stenosis. Trileaflet aortic valve. Tricuspid Valve Tricuspid valve not well visualized, grossly normal. Unable to estimate the right ventricular systolic pressure. Pulmonic Valve Pulmonic valve not well visualized, grossly normal. Pericardium No obvious pericardial effusion. Great Vessels Normal size aortic root and proximal ascending aorta. CONCLUSIONS Technically difficult study. Left ventricular cavity size normal. Left ventricular wall thickness mildly increased. No obvious regional wall motion abnormalities. Left ventricular ejection fraction is estimated at > 55 %. Right ventricle not well visualized, grossly normal. Unable to estimate the right ventricular systolic pressure. No obvious pericardial effusion. Salty Noriega M.D. (Electronically Signed) Final Date: 04 March 2017 18:44 MEASUREMENTS (Male / Female) Normal Values 2D ECHO LV Diastolic Diameter PLAX 4.7 cm 4.2 - 5.9 / 3.9 - 5.3 cm LV Systolic Diameter PLAX 2.1 cm 2.1 - 4.0 cm LV Fractional Shortening PLAX 55.3 % 25 - 46 % LV Ejection Fraction 2D Teich 85.9 % IVS Diastolic Thickness 1.3 cm LVPW Diastolic Thickness 1.3 cm LV Relative Wall Thickness 0.6 RV Internal Dim ED PLAX 2.8 cm 1.9 - 3.8 cm LVOT Diameter 1.8 cm Aortic Root Diameter 2.9 cm LA Systolic Diameter LX 3.1 cm 3.0 - 4.0 / 2.7 - 3.8 cm LA Volume 27.0 cm 18 - 58 / 22 - 52 cm Ascending Aorta Diameter 2.9 cm DOPPLER AV Peak Velocity 116.0 cm/s AV Peak Gradient 5.4 mmHg AV Mean Velocity 75.6 cm/s AV Mean Gradient 3.0 mmHg AV Velocity Time Integral 23.5 cm LVOT Peak Velocity 93.2 cm/s LVOT Peak Gradient 3.5 mmHg LVOT Mean Velocity 67.0 cm/s LVOT Mean Gradient 2.0 mmHg LVOT Velocity Time Integral 23.7 cm LVOT Stroke Volume 60.3 cm AV Area Cont Eq vti 2.6 cm AV Area Cont Eq pk 2.0 cm MV Peak Velocity 87.3 cm/s MV Peak Gradient 3.0 mmHg MV Mean Velocity 38.1 cm/s MV Mean Gradient 1.0 mmHg Mitral E Point Velocity 59.7 cm/s Mitral A Point Velocity 69.1 cm/s Mitral E to A Ratio 0.9 MV PHT Velocity 61.3 cm/s MV Deceleration [place] 164.0 cm/s MV Pressure Half Time 112.1 ms MV Area PHT 2.0 cm MV Deceleration Time 201.0 ms PV Peak Velocity 92.4 cm/s PV Peak Gradient 3.4 mmHg PV Mean Velocity 66.1 cm/s PV Mean Gradient 2.0 mmHg PV Velocity Time Integral 20.9 cm LV E' Lateral Velocity 9.2 cm/s Mitral E to LV E' Lateral Ratio 6.5 LV E' Septal Velocity 8.1 cm/s Mitral E to LV E' Septal Ratio 7.4
[2017-03-04 23:00] VITALS: BP 110/60
[2017-03-05 05:57] LABS: ABSOLUTE BASOPHIL COUNT 0 /CUMM (0.0-0.2); ABSOLUTE EOSINOPHIL COUNT 0.1 /CUMM (0.0-0.7); ABSOLUTE LYMPH COUNT 1.5 /CUMM (1.2-3.4)
[2017-03-05 06:37] LABS: ABSOLUTE GRANULOCYTE CT 7.4 /CUMM (1.4-6.5); ABSOLUTE MONOCYTE COUNT 0.3 /CUMM (0.10-0.60); BASOPHIL % 0.2 % (0.0-2.0); EOSINOPHIL % 1.2 % (0-5); GRANULOCYTE % 78.9 % (42.2-75.2); MEAN CORPUSCULAR HGB CONC 30.8 G/DL (33.0-37.0); MEAN PLATELET VOLUME 8.2 FL (7.4-10.4); PLATELET COUNT 178 /CUMM (130-400); RBC DISTRIBUTION WIDTH 16.4 % (11.5-14.5); WHITE BLOOD CELL COUNT 9.4 /CUMM (4.8-10.8)
[2017-03-05 06:39] LABS: MEAN CORPUSCULAR VOLUME 78.7 FL (81.0-99.0); RED BLOOD CELL CT 6.12 /CUMM (4.20-5.40)
[2017-03-05 06:40] LABS: HEMATOCRIT 48.2 % (37-47); MEAN CORPUSCULAR HGB 24.2 PG (27.0-31.0)
[2017-03-05 08:00] VITALS: BP 116/80
--- NOTE | 2017-03-05 09:31 | PN- Resident CRCU ---
Subjective HPI/CRCU Issues: #1 Acute Respiratory Failure likley due to opiod/bezodiazepine overdose Vs aspiration pneumonia status post extubation. #2 unresponsive episode with significant bradycardia. #3 elevated troponins likely in the setting of kidney injury versus type II AK #4 history of SLE/Lupus? #4 significant narcotic use for chronic pain #5 Chronic lower extremity edema, venous stasis #6 elevated LFTs #7 elevated pro-proBNP, acute pulmonary edema #8 acute kidney injury, now resolved #9 hyperglycemia #10 abnormal EKG 24 Hour Events: Ms. Atkinson was seen and examined this morning. She is per resting comfortably in bed. She is alert and oriented 3 and answers questions appropriately. Denies any chest pain, shortness of breath, palpitations, nausea, vomiting, dizziness, urinary symptoms. Does complain of some constipation. Also endorses some pain in her legs bilaterally Objective Vital Signs & I&O Last 8 Hrs of Vitals and I&O: Intake & Output 03/06 1600 Intake Total 630 Output Total 1200 Balance -570 Intake, IV 30 Intake, Oral 600 Number 2 Bowel Movements Output, Urine 1200 Patient 115.666 kg Weight Exam General Appearance: no apparent distress, alert, awake, anxious, obese Head: atraumatic, normal appearance Ears, Nose, Throat: nASAL CANNULA Neck: normal inspection, supple Respiratory: BASILAR CRACKLES Cardiovascular: regular rate/rhythm Gastrointestinal: HYPERACTIVE BOWEL SOUNDS Extremities: 3+ BILATERAL PEDAL EDEMAWITH CHRONIC VENOUS STASIS CHANGES Cranial Nerves: normal hearing, normal speech, PERRL Weaning Parameters NIF: 23 Minute Volume: 8.44 Resp rate: 20 Vt: 445 Heart Rate: 68 Weaning Schedule Start Time: 1015 Minute Volume: 4.8 Resp Rate: 12 Vt: 414 Heart Rate: 70 End Time: 1306 Current Medications: Current Medications Sig/Howard Start time Last Medication Dose Route Stop Time Status Admin Amoxicillin/ 875 MG Q12H 03/05 0600 AC 03/06 Clavulanate Potassium PO 03/08 2300 0516 Aspirin Buffered 81 MG DAILY 03/03 1000 AC 03/06 PO 1003 Furosemide 40 MG ONCE ONE 03/06 1015 DC 03/06 IV 03/06 1016 1019 Furosemide 40 MG DAILY 03/06 1000 DC PO Furosemide 40 MG DAILY 03/04 1430 DC 03/05 IV 0929 Heparin Sodium 5,000 UNIT Q8 03/02 2200 AC 01/02 (Porcine) SC 0516 Hydrocortisone 1 BINA TID 03/04 1730 AC 03/06 TOP 1010 Insulin Aspart 0 AT BEDTIME 03/04 2200 AC SC Insulin Aspart 0 TIDAC 03/04 1700 AC 03/06 SC 1200 Melatonin 3 MG AT BEDTIME 03/04 0330 AC 03/05 PO 2106 Metolazone 5 MG DAILY 03/06 1000 AC 03/06 PO 1004 Nystatin 1 BINA TID PRN 03/04 1630 AC 03/06 TOP 1003 Omeprazole 40 MG DAILY AC 03/07 0700 AC PO Pantoprazole Sodium 40 MG DAILY 03/02 2056 DC 03/06 IV 1004 Polyethylene Glycol 17 GM DAILY PRN 03/06 1010 AC PO Polyethylene Glycol 17 GM DAILY 03/04 1115 DC 03/05 PO 0929 Potassium Chloride 40 MEQ BID 03/06 1000 AC 03/06 PO 03/06 2201 1009 Ramelteon 8 MG ONE TIME ONE 03/05 1945 DC 03/05 PO 03/05 194 2105 Senna/Docusate Sodium 2 TAB DAILY 03/05 1152 AC 03/05 PO 1339 Impression/Plan Impression/Problem List Impression: is a 76-year-old female past medical history of lupus, lower extremity edema , anxiety, chronic pain, who presented to the emergency department after an unresponsive episode at home. She was intubated in field and placed for bradycardia. Assessment #1 Acute Respiratory Failure likley due to opiod/bezodiazepine overdose Vs aspiration pneumonia status post extubation. #2 unresponsive episode with significant bradycardia. #3 elevated troponins likely in the setting of kidney injury versus type II AK #4 history of SLE/Lupus? #4 significant narcotic use for chronic pain #5 Chronic lower extremity edema, venous stasis #6 elevated LFTs #7 elevated pro-proBNP, acute pulmonary edema #8 acute kidney injury, now resolved #9 hyperglycemia #10 abnormal EKG Plan --The patient was successfully extubated on 03/03/2017. -Started on Unasyn for aspiration pneumonia> now on Augmentin 875 mg BID, to continue until 03/08/2017. -Lasix 40 mg. Monitor I's and Outs -Troponin trended down, echocardiogram shows no wall motion abnormalities, EF more than 55% -Off beta blockers. Continued on aspirin. Statin held due to elevated LFTs. -Dopplers negative for DVT -Hb1Ac 7. 3 times a day Accu-Cheks, NovoLog sliding scale -Replete Electrolytes, maintain K of 4. Aggressively replete K. -Holding all narcotics. Plan to give him morphine if any signs of withdrawal. -Chest x-ray this morning is pending -Aggressive bowel regime to prevent constipation -Lft's trending down. Tylenol level low. -Continued on PPI. -DVT prophylaxis subcutaneous heparin -Full code Problem List: 1. Respiratory failure Pain Ratin Pain Location: Bilateral lower extremities Tomorrow's Labs & Rationales: Motrin as needed Plan DVT/Prophylaxis: mechanical, pharmacological
--- NOTE | 2017-03-05 10:34 | RADIOLOGY REPORT ---
EXAMINATION: XR PORTABLE CHEST CLINICAL INFORMATION: Elevated white count. COMPARISON: Chest radiograph 03/05/2017 TECHNIQUE: Portable AP 70 degrees upright view of the chest was obtained. FINDINGS: Study is limited by a marked reduction in lung volumes with overlying soft tissues limiting assessment of the lung bases. There may be subtle lower lobe opacities but this is not well evaluated. The upper lungs are clear. No acute osseous abnormality. The heart is prominent, stable. IMPRESSION: Low lung volumes. Difficult to exclude lower lobe opacities or subsegmental atelectasis due to overlying soft tissues. The mid and upper lungs are clear.
--- NOTE | 2017-03-05 11:42 | PN- Pulmonary ---
Subjective HPI/Critical Care Issues: Ms. Atkinson was seen and examined this morning. She is per resting comfortably in bed. She is alert and oriented 3 and answers questions appropriately. Denies any chest pain, shortness of breath, palpitations, nausea, vomiting, dizziness, urinary symptoms. Does complain of some constipation. Also endorses some pain in her legs bilaterally Objective Current Medications: Current Medications Sig/Howard Start time Last Medication Dose Route Stop Time Status Admin Amoxicillin/ 875 MG Q12H 03/05 0600 AC 03/05 Clavulanate Potassium PO 0613 Amoxicillin/ 875 MG Q12 03/04 1430 DC 03/04 Clavulanate Potassium PO 1634 Ampicillin Sodium/ 3,000 MG Q12H 03/02 2359 DC 03/04 Sulbactam Sodium IV 1220 Sodium Chloride 100 ML Aspirin Buffered 81 MG DAILY 03/03 1000 AC 03/05 PO 0929 Atorvastatin Calcium 10 MG 1700 03/04 1700 DC PO Bisacodyl 10 MG ONCE ONE 03/04 1630 DC 03/04 WV 03/04 1631 1632 Furosemide 40 MG DAILY 03/04 1430 AC 03/05 IV 0929 Heparin Sodium 5,000 UNIT Q8 03/02 2200 AC 03/05 (Porcine) SC 0614 Hydrocortisone 1 BINA TID 03/04 1730 AC 03/05 TOP 0929 Insulin Aspart 0 AT BEDTIME 03/04 2200 AC SC Insulin Aspart 0 TIDAC 03/04 1700 AC 03/04 SC 1744 Insulin Human Regular 2 UNITS .STK-MED ONE 03/04 1301 DC IV 03/04 1302 Insulin Human Regular 0 Q6 03/02 2359 DC 03/04 SC 1305 Lorazepam 0.5 MG ONCE ONE 03/04 1730 DC 03/04 IV 03/04 1731 1738 Melatonin 3 MG AT BEDTIME 03/04 0330 AC 03/04 PO 2131 Morphine Sulfate 2 MG ONCE ONE 03/04 1515 CAN IV 03/04 1516 Nystatin 1 BINA TID PRN 03/04 1630 AC 03/04 TOP 2131 Oxycodone HCl 5 MG ONCE ONE 03/05 0245 DC 03/05 PO 03/05 0246 0247 Oxycodone HCl 5 MG ONCE ONE 03/04 1530 DC 03/04 PO 03/04 1531 1531 Pantoprazole Sodium 40 MG DAILY 12/29 2056 AC 03/05 IV 0929 Phosphate 250 MG PC AND AT BEDTIME 03/03 1800 DC 03/04 PO 03/04 1301 1220 Polyethylene Glycol 17 GM DAILY 03/04 1115 AC 03/05 PO 0929 Potassium Chloride 40 MEQ ONCE ONE 03/04 1800 DC 03/04 PO 03/04 1801 2131 Potassium Chloride 40 MEQ ONCE ONE 03/04 1430 DC 03/04 PO 03/04 1431 1519 Potassium Phosphate 15 mMol ONE ONE 03/04 1130 DC 03/04 Sodium Chloride 250 ML IV 03/04 1534 1524 Vital Signs & I&O Last 24 Hrs of Vitals and I&O: Vital Signs Date Time Temp Pulse Resp B/P B/P Pulse O2 O2 Flow FiO2 Mean Ox Delivery Rate 03/05 08 97 Nasal 4.0L Cannula 03/05 799 97.2 70 20 116/80 97 Nasal 4.0L Cannula 03/05 0000 96 Nasal 4.0L Cannula 03/04 2300 97.6 69 25 110/60 96 Nasal 4.0L Cannula 03/04 2000 96 Nasal 4.0L Cannula 03/04 1920 96 Nasal 45% Cannula 03/04 1630 97 Nasal 50% Cannula 03/04 1600 97 Nasal 45% Cannula 03/04 1600 97.6 61 22 110/60 97 Nasal 45% Cannula 03/04 1300 95 Nasal 50% Cannula 03/04 1200 97 Nasal 50% Cannula Intake & Output 03/05 1600 03/05 0800 03/05 0000 Intake Total 360 370 Output Total 900 3000 Balance -540 -2630 Intake, IV 250 Intake, Oral 360 120 Number 0 1 Bowel Movements Output, Urine 900 3000 Laboratory Tests 03/05 03/04 0539 0650 Chemistry Sodium (137 - 145 mmol/L) 139 Potassium (3.5 - 5.1 mmol/L) 4.3 Chloride (98 - 107 mmol/L) 96 L Carbon Dioxide (22 - 30 mmol/L) 36 H Anion Gap (5 - 16) 7 BUN (7 - 17 mg/dL) 24 H Creatinine (0.5 - 1.0 mg/dL) 0.8 Estimated GFR (>60 ml/min) > 60 Glucose (65 - 99 mg/dL) 138 H Calcium (8.4 - 10.2 mg/dL) 8.7 Phosphorus (2.5 - 4.5 mg/dL) 3.8 Magnesium (1.6 - 2.3 mg/dL) 1.7 Total Bilirubin (0.2 - 1.3 mg/dL) 1.0 AST (14 - 36 U/L) 1439 H ALT (9 - 52 U/L) 3916 H Troponin I Cancelled Albumin (3.5 - 5.0 g/dL) 2.8 L Hematology CBC w Diff NO MAN DIFF REQ WBC (4.8 - 10.8 /CUMM) 9.4 RBC (4.20 - 5.40 /CUMM) 6.12 H Hgb (12.0 - 16.0 G/DL) 14.8 Hct (37 - 47 %) 48.2 H MCV (81.0 - 99.0 FL) 78.7 L MCH (27.0 - 31.0 PG) 24.2 L RDW (11.5 - 14.5 %) 16.4 H Plt Count (130 - 400 /CUMM) 178 MPV (7.4 - 10.4 FL) 8.2 Gran % (42.2 - 75.2 %) 78.9 H Lymphocytes % (20.5 - 51.1 %) 16.4 L Monocytes % (1.7 - 9.3 %) 3.3 Eosinophils % (0 - 5 %) 1.2 Basophils % (0.0 - 2.0 %) 0.2 Absolute Granulocytes (1.4 - 6.5 /CUMM) 7.4 H Absolute Lymphocytes (1.2 - 3.4 /CUMM) 1.5 Absolute Monocytes (0.10 - 0.60 /CUMM) 0.3 Absolute Eosinophils (0.0 - 0.7 /CUMM) 0.1 Absolute Basophils (0.0 - 0.2 /CUMM) 0 PUBS MCHC (33.0 - 37.0 G/DL) 30.8 L 03/04 03/03 0400 2049 Chemistry Sodium (137 - 145 mmol/L) 141 140 Potassium (3.5 - 5.1 mmol/L) 3.5 3.9 Chloride (98 - 107 mmol/L) 95 L 94 L Carbon Dioxide (22 - 30 mmol/L) 39 H 38 H Anion Gap (5 - 16) 7 8 BUN (7 - 17 mg/dL) 34 H 38 H Creatinine (0.5 - 1.0 mg/dL) 0.8 0.9 Estimated GFR (>60 ml/min) > 60 > 60 Glucose (65 - 99 mg/dL) 96 119 H Calcium (8.4 - 10.2 mg/dL) 8.2 L 8.2 L Phosphorus (2.5 - 4.5 mg/dL) 2.8 3.1 Magnesium (1.6 - 2.3 mg/dL) 2.2 2.4 H Total Bilirubin (0.2 - 1.3 mg/dL) 0.7 0.7 Direct Bilirubin (< 0.4 mg/dL) 0.5 H AST (14 - 36 U/L) 3659 H 4274 H ALT (9 - 52 U/L) 4603 H 4554 H Alkaline Phosphatase (<127 U/L) 140 H Troponin I (< 0.11 ng/ml) 0.02 Total Protein (6.3 - 8.2 g/dL) 5.1 L Albumin (3.5 - 5.0 g/dL) 2.5 L 2.6 L Coagulation PT (9.4 - 12.5 SEC) 16.2 H INR (0.90 - 1.19) 1.55 H APTT (25 - 37 SEC) 27 Hematology CBC w Diff NO MAN DIFF REQ WBC (4.8 - 10.8 /CUMM) 8.0 RBC (4.20 - 5.40 /CUMM) 5.47 H Hgb (12.0 - 16.0 G/DL) 13.5 Hct (37 - 47 %) 43.3 MCV (81.0 - 99.0 FL) 79.1 L MCH (27.0 - 31.0 PG) 24.7 L RDW (11.5 - 14.5 %) 16.4 H Plt Count (130 - 400 /CUMM) 155 MPV (7.4 - 10.4 FL) 8.5 Gran % (42.2 - 75.2 %) 80.8 H Lymphocytes % (20.5 - 51.1 %) 15.1 L Monocytes % (1.7 - 9.3 %) 2.5 Eosinophils % (0 - 5 %) 1.4 Basophils % (0.0 - 2.0 %) 0.2 Absolute Granulocytes (1.4 - 6.5 /CUMM) 6.4 Absolute Lymphocytes (1.2 - 3.4 /CUMM) 1.2 Absolute Monocytes (0.10 - 0.60 /CUMM) 0.2 Absolute Eosinophils (0.0 - 0.7 /CUMM) 0.1 Absolute Basophils (0.0 - 0.2 /CUMM) 0 PUBS MCHC (33.0 - 37.0 G/DL) 31.2 L Microbiology Date/Time Procedure - Status Source Growth 03/03 0101 Blood Culture - RES BLOOD 03/03 0058 Blood Culture - RES BLOOD 03/02 2200 Respiratory Culture - COMP LOWER RESP 03/02 2200 Gram Stain - COMP LOWER RESP 03/02 2048 Influenza Virus A & B Rapid Smear - COMP NASOPHARYN 03/02 2016 Surveillance Culture - CAN UPPER RESP Cancelled: Cancelled via OE: DUPLICATE 03/02 2016 Surveillance Culture - COMP UPPER RESP 03/02 2016 Surveillance Culture - CAN GI Cancelled: Cancelled via OE: DUPLICATE 03/02 2016 Surveillance Culture - COMP GI Impression/Plan Impression/Plan Impression/Plan: DELGADO On high flow nasal cannula mild bloody secretions, through the nostril chest mild crackles abd soft bs Sig edema EKG noted CXr IMPRESSION: Low lung volumes. Difficult to exclude lower lobe opacities or subsegmental atelectasis due to overlying soft tissues. The mid and upper lungs are clear. DICTATED BY: Isaac Montelongo MD DATE/TIME DICTATED:03/05/171028 76 yo F with h/o ?lupus (no obvious features questionable diagnosis), chronic pain, HTN, T2DM, breast/ uterine cancer, chronic venous stasis is brought in after patient found her unresponsive at home. Pt was nasally intubated at home, and was reported as being sig taras hr in the 30s, who sub improved sig and now admitted to the icu. Pt does have history of sig narcotic use and takes oxycodone (followed by pain center). Recently she was noted to be more lethargic and has had some chestdiscomfort, fol smelling urine IMPRESSION AND ISSUES Pt with multiple issues with history of inflammatory disease ( with prob lupus and sjogrens) on immunosupp rx with * Resolved Acute resp failure with s/p nasal intubation, now extubated- prob due to narcotics, rule out sepsis (this seems less likely) * Short period of Unresponsive episode with Sig taras noted in the field with resp failure who was nasally intubated, with troponin leak with ekg changes. Rule of IHD and ACS * Sig narcotic use for chronic pain which may have contributed her current episode. Pt has had recurrent similar admissions at an out side facility mostly due to narcotic use * Lower ext edema, chronic no evidence suggestive of venous thromboembolism, ultrasound negative * Sig elevated LFTS, prob shock liver which is improving and Tylenol level is normal * Elevated pro bnp with acute pulm edema, prob acute mild diastolic heart failure, status post diuresis since yesterday * DM with hyperglycemia * Resolved CHIOMA * hyponatremia and other electrolyte abnormality, improving * Aspiration pna, with atx * History of NICOLE prob untreated REC Give potassium 40 mEq 1 doses today Intravenous Lasix 40 mg daily and can change to po in am Follow liver enzymes Hold narcotics and if there is any signs of withdrawal we will give morphine, slowly resume her narcotics at a low dose MiraLAX if constipated Bowel regimen Out of bed to chair Augmentin 875 twice a day for 3 more days Continue proton pump inhibitor po Out of bed to chair Wean down oxygen FSG with sliding scale and when she is eating ok then can slowly resume her home regimen ASA, and statins Avoid betablockers Cardio to follow Ok to the floor
--- NOTE | 2017-03-05 12:13 | PN- Cardiology ---
Subjective Subjective: Reports feeling weak today. Denies shortness of breath or chest pain. Has pain in her legs but tells me this is chronic. Objective Vital Signs and I&Os Vital Signs Date Time Temp Pulse Resp B/P B/P Pulse O2 O2 Flow FiO2 Mean Ox Delivery Rate 03/05 08 97 Nasal 4.0L Cannula 03/05 799 97.2 70 20 116/80 97 Nasal 4.0L Cannula 03/05 0000 96 Nasal 4.0L Cannula 03/040 97.6 69 25 110/60 96 Nasal 4.0L Cannula 03/04 2000 96 Nasal 4.0L Cannula 03/04 1920 96 Nasal 45% Cannula 03/04 1630 97 Nasal 50% Cannula 03/04 1600 97 Nasal 45% Cannula 03/04 1600 97.6 61 22 110/60 97 Nasal 45% Cannula 03/04 1300 95 Nasal 50% Cannula Intake & Output 03/05 1600 03/05 0800 03/05 0000 03/04 1600 03/04 0800 03/04 0000 Intake Total 360 370 400 270 360 Output Total 900 3000 3074 514 1181 Balance -540 -2630 -600 -530 -680 Intake, IV 250 100 120 Intake, Oral 360 120 300 150 360 Number 0 1 0 Bowel Movements Output, Urine 900 3000 1430 443 3877 Physical Exam: General: no apparent distress. Alert. On nasal cannula Eyes: No obvious scleral icterus. HEENT: No jugular venous distention or abnormal jugular venous pulsations. Cardiovascular: Normal intensity S1/S2. PMI not grossly displaced. Respiratory: Decreased air entry bilaterally Abdomen: Soft, nontender with no guarding or rebound tenderness. Musculoskeletal: No clubbing or cyanosis noted; 2-3+ bilateral lower extremity edema Skin: Stasis changes noted Neurologic: No gross focal deficits noted. Current Medications: Current Medications Sig/Howard Start time Last Medication Dose Route Stop Time Status Admin Amoxicillin/ 875 MG Q12H 03/05 0600 AC 03/05 Clavulanate Potassium PO 03/08 2300 0613 Amoxicillin/ 875 MG Q12 03/04 1430 DC 03/04 Clavulanate Potassium PO 1634 Ampicillin Sodium/ 3,000 MG Q12H 03/02 2359 DC 03/04 Sulbactam Sodium IV 1220 Sodium Chloride 100 ML Aspirin Buffered 81 MG DAILY 03/03 1000 AC 03/05 PO 0929 Atorvastatin Calcium 10 MG 1700 03/04 1700 DC PO Bisacodyl 10 MG ONCE ONE 03/04 1630 DC 03/04 OH 03/04 1631 1632 Furosemide 40 MG DAILY 03/04 1430 AC 03/05 IV 0929 Heparin Sodium 5,000 UNIT Q8 03/02 2200 AC 03/05 (Porcine) SC 0614 Hydrocortisone 1 BINA TID 03/04 1730 AC 03/05 TOP 0929 Insulin Aspart 0 AT BEDTIME 03/04 2200 AC SC Insulin Aspart 0 TIDAC 03/04 1700 AC 03/05 SC 1153 Insulin Human Regular 2 UNITS .STK-MED ONE 03/04 1301 DC IV 03/04 1302 Insulin Human Regular 0 Q6 03/02 2359 DC 03/04 SC 1305 Lorazepam 0.5 MG ONCE ONE 03/04 1730 DC 03/04 IV 03/04 1731 1738 Melatonin 3 MG AT BEDTIME 03/04 0330 AC 03/04 PO 2131 Morphine Sulfate 2 MG ONCE ONE 03/04 1515 CAN IV 03/04 1516 Nystatin 1 BINA TID PRN 03/04 1630 AC 03/04 TOP 2131 Oxycodone HCl 5 MG ONCE ONE 03/05 0245 DC 03/05 PO 03/05 0246 0247 Oxycodone HCl 5 MG ONCE ONE 03/04 1530 DC 03/04 PO 03/04 1531 1531 Pantoprazole Sodium 40 MG DAILY 03/02 2056 AC 03/05 IV 0929 Phosphate 250 MG PC AND AT BEDTIME 03/03 1800 DC 03/04 PO 03/04 1301 1220 Polyethylene Glycol 17 GM DAILY 03/04 1115 AC 03/05 PO 0929 Potassium Chloride 40 MEQ ONCE ONE 03/04 1800 DC 03/04 PO 03/04 1801 2131 Potassium Chloride 40 MEQ ONCE ONE 03/04 1430 DC 03/04 PO 03/04 1431 1519 Potassium Phosphate 15 mMol ONE ONE 03/04 1130 DC 03/04 Sodium Chloride 250 ML IV 03/04 1534 1524 Senna/Docusate Sodium 2 TAB DAILY 03/05 1152 AC PO Results Last 48 Hrs of Labs/Mics: Laboratory Tests 03/05/17 0539: Anion Gap 7, Estimated GFR > 60, Glucose 138 H, Calcium 8.7, Phosphorus 3.8, Magnesium 1.7, Total Bilirubin 1.0, AST 1439 H, ALT 3916 H, Albumin 2.8 L, CBC w Diff NO MAN DIFF REQ, RBC 6.12 H, MCV 78.7 L, MCH 24.2 L, RDW 16.4 H, MPV 8.2, Gran % 78.9 H, Lymphocytes % 16.4 L, Monocytes % 3.3, Eosinophils % 1.2, Basophils % 0.2, Absolute Granulocytes 7.4 H, Absolute Lymphocytes 1.5, Absolute Monocytes 0.3, Absolute Eosinophils 0.1, Absolute Basophils 0, PUBS MCHC 30.8 L 03/04/17 0650: Troponin I Cancelled 03/04/17 0400: Anion Gap 7, Estimated GFR > 60, Glucose 96, Calcium 8.2 L, Phosphorus 2.8, Magnesium 2.2, Total Bilirubin 0.7, AST 3659 H, ALT 4603 H, Troponin I 0.02, Albumin 2.5 L, CBC w Diff NO MAN DIFF REQ, RBC 5.47 H, MCV 79.1 L, MCH 24.7 L, RDW 16.4 H, MPV 8.5, Gran % 80.8 H, Lymphocytes % 15.1 L, Monocytes % 2.5, Eosinophils % 1.4, Basophils % 0.2, Absolute Granulocytes 6.4, Absolute Lymphocytes 1.2, Absolute Monocytes 0.2, Absolute Eosinophils 0.1, Absolute Basophils 0, PUBS MCHC 31.2 L 03/03/179: Anion Gap 8, Estimated GFR > 60, Glucose 119 H, Calcium 8.2 L, Phosphorus 3.1, Magnesium 2.4 H, Total Bilirubin 0.7, Direct Bilirubin 0.5 H, AST 4274 H, ALT 4554 H, Alkaline Phosphatase 140 H, Total Protein 5.1 L, Albumin 2.6 L, PT 16.2 H, INR 1.55 H, APTT 27 Recent Imaging Studies: Telemetry tracings were personally reviewed and shows sinus rhythm and sinus bradycardia with no prolonged pauses Echo: Technically difficult study. Left ventricular cavity size normal. Left ventricular wall thickness mildly increased. No obvious regional wall motion abnormalities. Left ventricular ejection fraction is estimated at > 55 %. Right ventricle not well visualized, grossly normal. Unable to estimate the right ventricular systolic pressure. No obvious pericardial effusion. CXR: Low lung volumes. Difficult to exclude lower lobe opacities or subsegmental atelectasis due to overlying soft tissues. The mid and upper lungs are clear. Assessment/Plan Assessment/Plan 1. Respiratory failure possibly due to narcotics with the concern for aspiration pneumonia; improved 2. Acute kidney injury, improving 3. Minimal troponin elevation likely due to acute kidney injury/respiratory failure 4. Chronic venous insufficiency/lymphedema 5. History of hypertension on outpatient beta lisa 6. Transient bradycardia; likely vagal in etiology 7. Elevated liver enzymes 8. Abnormal EKG Reports some weakness but no shortness of breath. Blood pressure currently well- controlled without her outpatient beta lisa. LFTs are trending down. Echocardiogram showed no evidence of regional wall motion abnormality. As creatinine has normalized can likely resume her outpatient diuretic regimen for chronic lower extremity edema. Would not resume statin until LFTs normalize. Az Noriega MD [facility] Continue telemetry? No
--- NOTE | 2017-03-05 15:27 | RADIOLOGY REPORT ---
EXAMINATION: XR PORTABLE CHEST CLINICAL INFORMATION: Pneumonia. COMPARISON: 03/03/2017 TECHNIQUE: Portable frontal view of the chest was obtained. FINDINGS: Both lung aguilar are symmetrically expanded and appear clear. The cardiomediastinal silhouette is mildly enlarged. There is no pleural effusion present. When compared to prior study, there is significant improved aeration noted bilaterally. IMPRESSION: No definite radiographic evidence of pneumonia. Improved aeration bilaterally since the prior study dated 03/03/2017.
[2017-03-05 16:00] VITALS: BP 122/82
[2017-03-06] VITALS: BP 106/63
[2017-03-06 05:24] LABS: ABSOLUTE BASOPHIL COUNT 0.1 /CUMM (0.0-0.2); ABSOLUTE EOSINOPHIL COUNT 0.2 /CUMM (0.0-0.7); ABSOLUTE GRANULOCYTE CT 6.2 /CUMM (1.4-6.5); ABSOLUTE LYMPH COUNT 1.6 /CUMM (1.2-3.4); ABSOLUTE MONOCYTE COUNT 0.5 /CUMM (0.10-0.60); EOSINOPHIL % 1.9 % (0-5); GRANULOCYTE % 72.9 % (42.2-75.2); MEAN CORPUSCULAR HGB 24.5 PG (27.0-31.0); MEAN CORPUSCULAR HGB CONC 30.8 G/DL (33.0-37.0); MEAN CORPUSCULAR VOLUME 79.7 FL (81.0-99.0); MEAN PLATELET VOLUME 8.3 FL (7.4-10.4); PLATELET COUNT 170 /CUMM (130-400); RBC DISTRIBUTION WIDTH 16.5 % (11.5-14.5); RED BLOOD CELL CT 6.16 /CUMM (4.20-5.40); WHITE BLOOD CELL COUNT 8.4 /CUMM (4.8-10.8)
[2017-03-06 08:00] VITALS: BP 118/68
--- NOTE | 2017-03-06 08:53 | PN- Housestaff ---
Subjective Follow-up For: 1. Respiratory failure possibly due to narcotics with the concern for aspiration pneumonia 2. Acute kidney injury 3. Minimal troponin elevation Tele-Events Since Last Visit: Normal sinus rhythm. Heart rate between 60 and 70. Subjective: Patient was seen and examined today. Patient alert, awake, oriented. Patient stated that she is doing better regarding her breathing complaining with yesterday she is currently on 4 L nasal cannula oxygen oxygen saturation more than 92%. She is afebrile, within acceptable blood pressure. Review of Systems Constitutional: Denies: chills, fever. Cardiovascular: Denies: chest pain, palpitations. Respiratory: Reports: short of breath. Denies: cough, wheezing. Gastrointestinal: Reports: diarrhea. Denies: abdominal pain, constipation, nausea, vomiting. Genitourinary: Denies: pain. Objective Last 24 Hrs of Vital Signs/I&O Vital Signs Date Time Temp Pulse Resp B/P B/P Pulse O2 O2 Flow FiO2 Mean Ox Delivery Rate 03/06 0000 97 Nasal 4.0L Cannula 03/06 0000 97.2 66 25 106/63 97 Nasal 4.0L Cannula 03/05 1600 96 Nasal 4.0L Cannula 03/05 1600 98.1 78 20 122/82 96 Nasal 4.0L Cannula Intake & Output 03/06 1600 03/06 0800 03/06 0000 Intake Total 120 320 Output Total 450 600 Balance -330 -280 Intake, Oral 120 320 Number 0 1 Bowel Movements Output, Urine 450 600 Patient 255 lb Weight Physical Exam General Appearance: Alert, Oriented X3, Cooperative, No Acute Distress Skin: No Rashes HEENT: PERRLA, EOMI Neck: Supple Cardiovascular: Regular Rate, Normal S1, Normal S2 Lungs: Normal Air Movement, decrease in the bibasilar Abdomen: Normal Bowel Sounds, Soft, No Tenderness Extremities: bilateral lower extremity edema Current Medications: Current Medications Sig/Howard Start time Last Medication Dose Route Stop Time Status Admin Amoxicillin/ 875 MG Q12H 03/05 0600 AC 03/06 Clavulanate Potassium PO 03/08 2300 0516 Aspirin Buffered 81 MG DAILY 03/03 1000 AC 03/06 PO 1003 Furosemide 40 MG ONCE ONE 03/06 1015 DC 03/06 IV 03/06 1016 1019 Furosemide 40 MG DAILY 03/06 1000 DC PO Furosemide 40 MG DAILY 03/05 1436 DC PO Furosemide 40 MG DAILY 03/04 1430 DC 03/05 IV 0929 Heparin Sodium 5,000 UNIT Q8 03/02 2200 AC 03/06 (Porcine) SC 0516 Hydrocortisone 1 BINA TID 03/04 1730 AC 03/06 TOP 1010 Insulin Aspart 0 AT BEDTIME 03/04 2200 AC SC Insulin Aspart 0 TIDAC 03/04 1700 AC 03/05 SC 1153 Lorazepam 0.5 MG ONCE ONE 03/05 1545 DC 03/05 IV 03/05 1546 1625 Melatonin 3 MG AT BEDTIME 03/04 0330 AC 03/05 PO 2106 Metolazone 5 MG DAILY 03/06 1000 AC 03/06 PO 1004 Nystatin 1 BINA TID PRN 03/04 1630 AC 03/06 TOP 1003 Omeprazole 40 MG DAILY AC 03/07 0700 AC PO Pantoprazole Sodium 40 MG DAILY 03/02 2056 DC 03/06 IV 1004 Polyethylene Glycol 17 GM DAILY PRN 03/06 1010 AC PO Polyethylene Glycol 17 GM DAILY 03/04 1115 DC 03/05 PO 0929 Potassium Chloride 40 MEQ BID 03/06 1000 AC 03/06 PO 03/06 2201 1009 Ramelteon 8 MG ONE TIME ONE 03/05 1945 DC 03/05 PO 03/05 1946 2105 Senna/Docusate Sodium 2 TAB DAILY 03/05 1152 AC 03/05 PO 1339 Last 24 Hrs of Lab/Edmund Results Last 24 Hrs of Labs/Mics: Laboratory Tests 03/06/17 0427: Anion Gap 8, Estimated GFR > 60, Glucose 122 H, Calcium 8.8, Phosphorus 4.2, Magnesium 1.7, Total Bilirubin 0.7, AST 404 H, ALT 2469 H, Albumin 3.0 L, CBC w Diff NO MAN DIFF REQ, RBC 6.16 H, MCV 79.7 L, MCH 24.5 L, RDW 16.5 H, MPV 8.3, Gran % 72.9, Lymphocytes % 18.4 L, Monocytes % 5.8, Eosinophils % 1.9, Basophils % 1.0, Absolute Granulocytes 6.2, Absolute Lymphocytes 1.6, Absolute Monocytes 0.5, Absolute Eosinophils 0.2, Absolute Basophils 0.1, PUBS MCHC 30.8 L Assessment/Plan Assessment: is a 76-year-old female past medical history of lupus, lower extremity edema , anxiety, chronic pain, who presented to the emergency department after an unresponsive episode at home. She was intubated in field and placed for bradycardia. Assessment: #1 Acute Respiratory Failure magalisley due to opiod/bezodiazepine overdose Vs aspiration pneumonia status post extubation. #2 unresponsive episode with significant bradycardia. #3 elevated troponins likely in the setting of kidney injury versus type II SC #4 history of SLE/Lupus? #4 significant narcotic use for chronic pain #5 Chronic lower extremity edema, venous stasis #6 elevated LFTs #7 elevated pro-proBNP, acute pulmonary edema #8 acute kidney injury, now resolved #9 hyperglycemia #10 abnormal EKG Plan: -Continue antibiotic Augmentin twice a day -We'll give 1 dose of IV Lasix 40 mg -We'll reassess tomorrow morning for additional IV Lasix, if no need we will place the patient on oral Lasix. -Continue supplement her potassium, mag and phosphate -Discontinue IV PPI place the patient on oral PPI -We'll continue holding off any narcotic, will hold off any sign of withdrawal and reaming was small dose of morphine if needed. -Continue bowel regimen as needed -Trend her LFTs, continue aspirin and statin -Continue current insulin regimen -Upgrade the dye to be chopped and thin as recommended by speech therapy -Avoid beta lisa -DVT prophylaxis all time -Full code Problem List: 1. Respiratory failure Pain Ratin Pain Location: none Pain Goal: Remain pain free Pain Plan: same Tomorrow's Labs & Rationales: cbc icu
--- NOTE | 2017-03-06 09:01 | PN- Cardiology ---
Subjective Subjective: Patient feels well from a cardiac standpoint. She denies chest pain or shortness of breath. Review of Systems: Eyes no blurred or double vision Ears no deafness or ringing Nose and throat no recurrent sinusitis Lungs per history of present illness Heart per history of present illness Abdomen no nausea vomiting Musculoskeletal occasional muscle and joint pains Psych no anxiety or depression Neuro without recurrent headache or seizures Endocrine no heat or cold intolerance Objective Vital Signs and I&Os Vital Signs Date Time Temp Pulse Resp B/P B/P Pulse O2 O2 Flow FiO2 Mean Ox Delivery Rate 03/06 0000 97 Nasal 4.0L Cannula 03/06 0000 97.2 66 25 106/63 97 Nasal 4.0L Cannula 03/05 1599 96 Nasal 4.0L Cannula 03/05 1599 98.1 78 20 122/82 96 Nasal 4.0L Cannula Intake & Output 03/06 0800 03/06 0000 03/05 1600 03/05 0800 03/05 0000 Intake Total 120 320 420 360 370 Output Total 724 696 0119 900 3000 Balance -330 -280 -1280 -540 -2630 Intake, IV 20 250 Intake, Oral 120 320 400 360 120 Number 0 1 2 0 1 Bowel Movements Output, Urine 939 992 4656 900 3000 Physical Exam: Patient is a well-developed well-nourished female appearing in no acute distress HEENT is unremarkable Neck is supple there is no JVD Lungs are clear Heart regular rhythm S1 and S2 are normal no murmurs gallops or rubs Abdomen bowel sounds positive Extremities 2+ edema Current Medications: Current Medications Sig/Howard Start time Last Medication Dose Route Stop Time Status Admin Amoxicillin/ 875 MG Q12H 03/05 0600 AC 03/06 Clavulanate Potassium PO 03/08 2300 0516 Aspirin Buffered 81 MG DAILY 03/03 1000 AC 03/05 PO 0929 Furosemide 40 MG DAILY 03/06 1000 AC PO Furosemide 40 MG DAILY 03/05 1436 DC PO Furosemide 40 MG DAILY 03/04 1430 AC 03/05 IV 0929 Heparin Sodium 5,000 UNIT Q8 03/02 2200 AC 03/06 (Porcine) SC 0516 Hydrocortisone 1 BINA TID 03/04 1730 AC 03/05 TOP 2106 Insulin Aspart 0 AT BEDTIME 03/04 2200 SC Insulin Aspart 0 TIDAC 03/04 1700 AC 03/05 SC 1153 Lorazepam 0.5 MG ONCE ONE 03/05 1545 DC 03/05 IV 03/05 1546 1625 Melatonin 3 MG AT BEDTIME 03/04 0330 AC 03/05 PO 210 Metolazone 5 MG DAILY 03/06 1000 AC PO Nystatin 1 BINA TID PRN 03/04 1630 03/04 [facility] 2131 Pantoprazole Sodium 40 MG DAILY 03/02 2056 AC 03/05 IV 0929 Polyethylene Glycol 17 GM DAILY 03/04 1115 AC 03/05 PO 0929 Ramelteon 8 MG ONE TIME ONE 03/05 1944 DC 03/05 PO 03/05 Senna/Docusate Sodium 2 TAB DAILY 03/05 1152 AC 03/05 PO 1339 Results Last 48 Hrs of Labs/Mics: Laboratory Tests 03/06/17 0427: Anion Gap 8, Estimated GFR > 60, Glucose 122 H, Calcium 8.8, Phosphorus 4.2, Magnesium 1.7, Total Bilirubin 0.7, AST 404 H, ALT 2469 H, Albumin 3.0 L, CBC w Diff NO MAN DIFF REQ, RBC 6.16 H, MCV 79.7 L, MCH 24.5 L, RDW 16.5 H, MPV 8.3, Gran % 72.9, Lymphocytes % 18.4 L, Monocytes % 5.8, Eosinophils % 1.9, Basophils % 1.0, Absolute Granulocytes 6.2, Absolute Lymphocytes 1.6, Absolute Monocytes 0.5, Absolute Eosinophils 0.2, Absolute Basophils 0.1, PUBS MCHC 30.8 L 03/05/17 0539: Anion Gap 7, Estimated GFR > 60, Glucose 138 H, Calcium 8.7, Phosphorus 3.8, Magnesium 1.7, Total Bilirubin 1.0, AST 1439 H, ALT 3916 H, Albumin 2.8 L, CBC w Diff NO MAN DIFF REQ, RBC 6.12 H, MCV 78.7 L, MCH 24.2 L, RDW 16.4 H, MPV 8.2, Gran % 78.9 H, Lymphocytes % 16.4 L, Monocytes % 3.3, Eosinophils % 1.2, Basophils % 0.2, Absolute Granulocytes 7.4 H, Absolute Lymphocytes 1.5, Absolute Monocytes 0.3, Absolute Eosinophils 0.1, Absolute Basophils 0, PUBS MCHC 30.8 L, Hepatitis A IgM Ab NONREACTIVE, Hep Bs Antigen NONREACTIVE, Hep B Core IgM Ab Conf NONREACTIVE, Hepatitis C Antibody NONREACTIVE Assessment/Plan Assessment/Plan 1. Respiratory failure possibly due to narcotics with the concern for aspiration pneumonia; improved 2. Acute kidney injury, improving 3. Minimal troponin elevation likely due to acute kidney injury/respiratory failure 4. Chronic venous insufficiency/lymphedema 5. History of hypertension on outpatient beta lisa 6. Transient bradycardia; likely vagal in etiology 7. Elevated liver enzymes 8. Abnormal EKG Recommendations 1. Continue current medications 2. Plan is to transfer to medical floor 3. Monitor LFTs and renal function Continue telemetry? Yes
--- NOTE | 2017-03-06 09:07 | PN- CRCU ---
Subjective HPI/Critical Care Issues: Stable no new sig issues noted Objective Current Medications: Current Medications Sig/Howard Start time Last Medication Dose Route Stop Time Status Admin Amoxicillin/ 875 MG Q12H 03/05 0600 AC 03/06 Clavulanate Potassium PO 03/08 2300 0516 Aspirin Buffered 81 MG DAILY 03/03 1000 AC 03/05 PO 0929 Furosemide 40 MG DAILY 03/06 1000 AC PO Furosemide 40 MG DAILY 03/05 1436 DC PO Furosemide 40 MG DAILY 03/04 1430 AC 03/05 IV 0929 Heparin Sodium 5,000 UNIT Q8 03/02 2200 AC 03/06 (Porcine) SC 0516 Hydrocortisone 1 BINA TID 03/04 1730 AC 03/05 TOP 2106 Insulin Aspart 0 AT BEDTIME 03/04 2200 AC SC Insulin Aspart 0 TIDAC 03/04 1700 AC 03/05 SC 1153 Lorazepam 0.5 MG ONCE ONE 03/05 1545 DC 03/05 IV 03/05 1546 1625 Melatonin 3 MG AT BEDTIME 03/04 0330 AC 03/05 PO 2106 Metolazone 5 MG DAILY 03/06 1000 AC PO Nystatin 1 BINA TID PRN 03/04 1630 AC 03/04 TOP 2131 Pantoprazole Sodium 40 MG DAILY 03/02 2056 AC 03/05 IV 0929 Polyethylene Glycol 17 GM DAILY 03/04 1115 AC 03/05 PO 0929 Ramelteon 8 MG ONE TIME ONE 03/05 1945 DC 03/05 PO 03/05 194 2105 Senna/Docusate Sodium 2 TAB DAILY 03/05 1152 AC 03/05 PO 1339 Vital Signs & I&O Last 24 Hrs of Vitals and I&O: Vital Signs Date Time Temp Pulse Resp B/P B/P Pulse O2 O2 Flow FiO2 Mean Ox Delivery Rate 03/06 0000 97 Nasal 4.0L Cannula 03/06 0000 97.2 66 25 106/63 97 Nasal 4.0L Cannula 03/05 1600 96 Nasal 4.0L Cannula 03/05 1600 98.1 78 20 122/82 96 Nasal 4.0L Cannula Intake & Output 03/06 1600 03/06 0800 03/06 0000 Intake Total 120 320 Output Total 450 600 Balance -330 -280 Intake, Oral 120 320 Number 0 1 Bowel Movements Output, Urine 450 600 Laboratory Tests 03/06 03/05 0427 0539 Chemistry Sodium (137 - 145 mmol/L) 140 139 Potassium (3.5 - 5.1 mmol/L) 3.9 4.3 Chloride (98 - 107 mmol/L) 94 L 96 L Carbon Dioxide (22 - 30 mmol/L) 38 H 36 H Anion Gap (5 - 16) 8 7 BUN (7 - 17 mg/dL) 22 H 24 H Creatinine (0.5 - 1.0 mg/dL) 0.7 0.8 Estimated GFR (>60 ml/min) > 60 > 60 Glucose (65 - 99 mg/dL) 122 H 138 H Calcium (8.4 - 10.2 mg/dL) 8.8 8.7 Phosphorus (2.5 - 4.5 mg/dL) 4.2 3.8 Magnesium (1.6 - 2.3 mg/dL) 1.7 1.7 Total Bilirubin (0.2 - 1.3 mg/dL) 0.7 1.0 AST (14 - 36 U/L) 404 H 1439 H ALT (9 - 52 U/L) 2469 H 3916 H Albumin (3.5 - 5.0 g/dL) 3.0 L 2.8 L Hematology CBC w Diff NO MAN DIFF REQ NO MAN DIFF REQ WBC (4.8 - 10.8 /CUMM) 8.4 9.4 RBC (4.20 - 5.40 /CUMM) 6.16 H 6.12 H Hgb (12.0 - 16.0 G/DL) 15.1 14.8 Hct (37 - 47 %) 49.0 H 48.2 H MCV (81.0 - 99.0 FL) 79.7 L 78.7 L MCH (27.0 - 31.0 PG) 24.5 L 24.2 L RDW (11.5 - 14.5 %) 16.5 H 16.4 H Plt Count (130 - 400 /CUMM) 170 178 MPV (7.4 - 10.4 FL) 8.3 8.2 Gran % (42.2 - 75.2 %) 72.9 78.9 H Lymphocytes % (20.5 - 51.1 %) 18.4 L 16.4 L Monocytes % (1.7 - 9.3 %) 5.8 3.3 Eosinophils % (0 - 5 %) 1.9 1.2 Basophils % (0.0 - 2.0 %) 1.0 0.2 Absolute Granulocytes (1.4 - 6.5 /CUMM) 6.2 7.4 H Absolute Lymphocytes (1.2 - 3.4 /CUMM) 1.6 1.5 Absolute Monocytes (0.10 - 0.60 /CUMM) 0.5 0.3 Absolute Eosinophils (0.0 - 0.7 /CUMM) 0.2 0.1 Absolute Basophils (0.0 - 0.2 /CUMM) 0.1 0 PUBS MCHC (33.0 - 37.0 G/DL) 30.8 L 30.8 L Serology Hepatitis A IgM Ab (NONREACTIVE) NONREACTIVE Hep Bs Antigen (NONREACTIVE) NONREACTIVE Hep B Core IgM Ab Conf (NONREACTIVE) NONREACTIVE Hepatitis C Antibody (NONREACTIVE) NONREACTIVE Impression/Plan Impression/Plan Impression/Plan: DELGADO On nasal cannula chest mild crackles abd soft bs Sig edema EKG noted CXr IMPRESSION: Low lung volumes. Difficult to exclude lower lobe opacities or subsegmental atelectasis due to overlying soft tissues. The mid and upper lungs are clear. DICTATED BY: Isaac Montelongo MD DATE/TIME DICTATED:03/05/171028 76 yo F with h/o ?lupus (no obvious features questionable diagnosis), chronic pain, HTN, T2DM, breast/ uterine cancer, chronic venous stasis is brought in after patient found her unresponsive at home. Pt was nasally intubated at home, and was reported as being sig taras hr in the 30s, who sub improved sig and now admitted to the icu. Pt does have history of sig narcotic use and takes oxycodone (followed by pain center). Recently she was noted to be more lethargic and has had some chestdiscomfort, fol smelling urine IMPRESSION AND ISSUES Pt with multiple issues with history of inflammatory disease ( with prob lupus and sjogrens) on immunosupp rx with * Resolved Acute resp failure with s/p nasal intubation, now extubated- prob due to narcotics * Short period of Unresponsive episode with Sig taras noted in the field with resp failure who was nasally intubated, with troponin leak with ekg changes. Rule of IHD and ACS cardio on board * Sig narcotic use for chronic pain which may have contributed her current episode. Pt has had recurrent similar admissions at an outside facility mostly due to narcotic use * Lower ext edema, chronic no evidence suggestive of venous thromboembolism, ultrasound negative * Sig elevated LFTS, prob shock liver which is improving and Tylenol level is normal, hep serology neg * Elevated pro bnp with acute pulm edema, acute mild diastolic heart failure, status post diuresis since yesterday * DM with hyperglycemia * Resolved CHIOMA * hyponatremia and other electrolyte abnormality, improving * Aspiration pna, with atx * History of NICOLE prob untreated REC Give potassium 40 mEq 2 doses today Intravenous Lasix 40 mg today Follow liver enzymes Hold narcotics and if there is any signs of withdrawal we will give morphine, slowly resume her narcotics at a low dose MiraLAX if constipated Bowel regimen Out of bed to chair Augmentin 875 twice a day for 2 more days Continue proton pump inhibitor po Out of bed to chair Wean down oxygen FSG with sliding scale and when she is eating ok then can slowly resume her home regimen ASA, and statins Avoid betablockers Cardio to follow Ok to the floor ask cardio if she needs tele and if not can go to regular floor
[2017-03-06 15:02] VITALS: BP 122/74
--- NOTE | 2017-03-06 17:58 | Transfer of Care Summary ---
Hospital Course Course Hospital Course: 76 yo F with h/o ?lupus (no obvious features questionable diagnosis), chronic pain, HTN, T2DM, breast/ uterine cancer, chronic venous stasis is brought in after patient found her unresponsive at home. The morning of admission at 7 am, patient woke up, was lethargic and complained of substernal chest discomfort. gave her the regular dose of pain medications (oxycontin 20 mg and oxycodone 10 mg) and patient went back to sleep. At 1 pm, when tried to wake her up, she was found unresponsive. EMS arrived, noted patient to be apneic, HR in 30's and BP 60's systolic. Patient was nasally intubated (due to trismus) and paced at a HR of 60 and 80 mA. She also received Narcan IV 3 mg enroute. reports that patient had similar opiate overdose presentation in Feb 2016 at [facility], where she responded to Narcan and was not intubated. On ER arrival, patient was noted to have strong radial pulses, BP 110/62, HR 60' s, pacing was discontinued. Patient was spontaneously moving her extremities and gradually became more responsive. Labs: WBC 11.7, microcytosis, Plt 180, no bands, Na 135, bicarb 33, BUN 49, creat 1.8 (creatinine 0.5 in 2016 at [place]), glucose 114, lactic acid 2.2, trop 0.08 --> 0.11, proBNP 04712, CK 106. AB.40/45/84/27 on vent AC TV 450, RR 18, PEEP 5, FiO2 100%. UA hazy, proteinuria, WBC 1-3, many bacteria. Urine tox screen benzos+, opiates 999. CXR: ETT in good position. Widened mediastinum contour, low lung volumes with bibasilar and perihilar atelectasis. CT chest: segmental and subsegmental atelectasis in the upper and lower lobes. Small foci of superimposed consolidation, hepatic steatosis and splenomegaly. EKG: Sinus rhythm with TWI in V1-V3 with Qtc 451. Repeat EKG shows TWI in inferior leads. (no old EKG to compare). Reason for ICU admission: Close monitoring for unresponsiveness/Acute Respiratory Failure requiring intubation. Problem list: #1.Acute Respiratory Failure likley due to opiod/bezodiazepine overdose Vs aspiration pneumonia :Patient was initially admitted to ICU and put on every 1 hour neurochecks. She was put on a propofol drip and narcotics were held. She was gently hydrated and started on IV Unasyn for questionable aspiration pneumonia. It was later changed to by mouth Augmentin to continue until 2017. She was successfully extubated on 03/03/2017. Patient was continued on aspirin after she passed the swallow. However statins were held due to elevated LFTs. Tylenol level was was low. Electrolytes were repleted as needed. Was continued on IV PPI now transition to by mouth. Patient significantly improved with no further episodes of unresponsiveness. Her respiratory status improved and she is currently being weaned off oxygen. Narcotics were held and morphine was given for any signs of withdrawal. Plan to resume her narcotics at low-dose in the days to come. #2 Unresponsive episode with significant bradycardia: Patient was closely monitored with every one hour neurochecks in the ICU. She was evaluated by cardiology who felt that bradycardia was transient and likely vagal in etiology on top of being on outpatient beta lsia therapy for hypertension. Beta blockers were held at admission. Echo showed no evidence of regional wall motion abnormality. Blood pressure remained stable without outpatient beta blockers. Beta blockers are being avoided now. Discuss with cardiology regarding resuming them. #3 Elevated troponins likely in the setting of kidney injury versus type II HI, abnormal EKG : The minimal troponin elevation was not consistent with HI. Patient was continued on aspirin therapy after passing swallow eval and statin was held secondary to elevated LFTs. Her heart rate was low normal on telemetry with no evidence of advanced heart block or prolonged pauses. Echo showed no evidence of regional wall motion abnormality. #4 Significant narcotic use for chronic pain: Patient's narcotics were held at the time of admission. Plan was to use morphine for signs of withdrawal. Plan to resume her narcotics and low doses once patient more awake and alert. #5 Chronic lower extremity edema, venous stasis: Patient was given IV Lasix 40 daily. Dopplers were negative for DVT. Elevation of extremities, local wound care was continued. Reevaluate patient in a.m. for IV Lasix and plan to start by mouth Lasix thereafter. #6 Elevated LFTs: LFTs were trended, Tylenol levels were low. Hepatitis panel was nonreactive. LFTs are trending down slowly #7 Acute kidney injury: Now resolved. Initially at admission patient had acute kidney injury likely prerenal in the setting of dehydration. Lasix was held initially. Kidney functions improved with IV hydration and resolved by day 2. Out patient diuretics with Lasix and metolazone was resumed later. -Diet: chopped and thin as recommended by speech therapy -DVT prophylaxis subcutaneous heparin -Full code Consults: Cardiology and Dr. Park(attending) Assessment/Plan: SEE ABOVE
[2017-03-06 23:06] VITALS: BP 110/80
[2017-03-07 06:51] VITALS: BP 118/78
--- NOTE | 2017-03-07 07:25 | PN- Housestaff ---
See Addendum Subjective Follow-up For: respiratory failure Tele-Events Since Last Visit: NSR, 80s Subjective: No overnight events. Slept poorly because of hospital environment. Complaining of dry lips. No CP, SOB, abd pain, or other complaints. Review of Systems Constitutional: Reports: no symptoms. EENTM: Reports: see HPI. Cardiovascular: Reports: no symptoms. Respiratory: Reports: no symptoms. Gastrointestinal: Reports: no symptoms. Genitourinary: Reports: no symptoms. Musculoskeletal: Reports: no symptoms. Skin: Reports: no symptoms. Neurological/Psychological: Reports: no symptoms. Hematologic/Endocrine: Reports: no symptoms. Immunologic/Allergic: Reports: no symptoms. Objective Last 24 Hrs of Vital Signs/I&O Vital Signs Date Time Temp Pulse Resp B/P B/P Pulse O2 O2 Flow FiO2 Mean Ox Delivery Rate 03/07 0651 97.4 77 18 118/78 97 Nasal Cannula 03/07 0000 Nasal 2.0L Cannula 03/06 2306 98.2 75 16 110/80 95 Nasal 5.0L Cannula 03/06 1502 98.2 72 18 122/74 97 Nasal 5.0L Cannula 03/06 1450 Nasal Cannula 03/06 0800 97 Nasal 4.0L Cannula 03/06 0800 97.6 73 20 118/68 97 Nasal 4.0L Cannula Intake & Output 03/07 0800 03/07 0000 03/06 1600 Intake Total 110 300 630 Output Total 0236 925 7069 Balance -890 -200 -570 Intake, IV 10 30 Intake, Oral 100 300 600 Number 1 2 Bowel Movements Output, Urine [phone] Patient 255 lb Weight Physical Exam General Appearance: Alert, Oriented X3, Cooperative, No Acute Distress Cardiovascular: Regular Rate, Normal S1, Normal S2 Lungs: mild wheezing Abdomen: Normal Bowel Sounds, Soft, No Tenderness Neurological: Normal Speech Extremities: swollen, red bilaterally Current Medications: Current Medications Sig/Howard Start time Last Medication Dose Route Stop Time Status Admin Acetaminophen 1,000 MG ONCE ONE 03/06 2029 CAN N/A 1 UNIT IV 03/06 2043 Amoxicillin/ 875 MG Q12H 03/05 06 AC 03/07 Clavulanate Potassium PO 03/08 2300 0602 Aspirin Buffered 81 MG DAILY 03/03 1000 AC 03/06 PO 1003 Furosemide 40 MG ONCE ONE 03/06 1015 DC 01/02 IV 03/06 1016 1019 Furosemide 40 MG DAILY 03/06 1000 DC PO Furosemide 40 MG DAILY 03/04 1430 DC 03/05 IV 0929 Heparin Sodium 5,000 UNIT Q8 03/02 2200 AC 03/07 (Porcine) SC 0602 Hydrocortisone 1 BINA TID 03/04 1730 AC 03/06 TOP 2149 Insulin Aspart 0 AT BEDTIME 03/04 2200 AC SC Insulin Aspart 0 TIDAC 03/04 1700 AC 03/06 SC 1700 Melatonin 5 MG AT BEDTIME 03/07 2200 DC PO Melatonin 5 MG AT BEDTIME 03/07 0230 AC 03/07 PO 0333 Melatonin 3 MG AT BEDTIME 03/04 0330 DC 03/06 PO 2150 Metolazone 5 MG DAILY 03/06 1000 AC 03/06 PO 1004 Nystatin 1 BINA TID PRN 03/04 1630 AC 03/06 TOP 1003 Omeprazole 40 MG DAILY AC 03/07 0700 AC 03/07 PO 0605 Pantoprazole Sodium 40 MG DAILY 03/02 2056 DC 03/06 IV 1004 Polyethylene Glycol 17 GM DAILY PRN 03/06 1010 AC PO Polyethylene Glycol 17 GM DAILY 03/04 1115 DC 03/05 PO 0929 Potassium Chloride 40 MEQ BID 03/06 1000 DC 03/06 PO 03/06 2201 2149 Senna/Docusate Sodium 2 TAB DAILY 03/05 1152 AC 03/05 PO 1339 Tramadol HCl 25 MG ONCE ONE 03/06 2100 DC 03/06 PO 03/06 2101 2149 Last 24 Hrs of Lab/Edmund Results Last 24 Hrs of Labs/Mics: Laboratory Tests 03/07/17 0645: Sodium Pending, Potassium Pending, Chloride Pending, Carbon Dioxide Pending, Anion Gap Pending, BUN Pending, Creatinine Pending, Glucose Pending, Calcium Pending, Phosphorus Pending, Magnesium Pending, Total Bilirubin Pending, AST Pending, ALT Pending, Albumin Pending, CBC w Diff Pending, WBC Pending, RBC Pending, Hgb Pending, Hct Pending, MCV Pending, MCH Pending, RDW Pending, Plt Count Pending, MPV Pending, PUBS MCHC Pending Assessment/Plan Assessment: is a 76-year-old female past medical history of lupus, lower extremity edema , anxiety, chronic pain, who presented to the emergency department after being found unresponsive at home secondary to opioid overdose. Problem list: 1. Acute hypoxic respiratory failure secondary to opioid overdose 2. Aspiration pneumonia 3. Significant bradycardia 4. Type II myocardial infarction 5. Transaminitis #Acute hypoxic respiratory failure secondary to opioid overdose: This is her second admission for opioid overdose. She takes opioids for chronic pain and is followed by pain clinic. However, it may be prudent to avoid opioids given that she is prone to overdose. -Avoid opioids -Appreciate pulmonology recommendations #Aspiration pneumonia: Patient likely aspirated secondary to the opioid overdose. Her pulmonary symptoms have improved remarkably. -Continue antibiotic Augmentin twice a day until 03/08/2017 #Significant bradycardia: Patient had an episode of significant bradycardia to the 30s in the field. We have been holding her carvedilol as of this. -Appreciate cardiology recommendations regarding when to restart carvedilol #Transaminitis: Hepatitis panel negative. Potentially secondary to statin use. It is improving. -Continue to hold statin -Trend LFTs #Chronic medical problems: -Continue home omeprazole, melatonin, polyethylene glycol, metolazone, senna, docusate, hydrocortisone, nystatin, aspirin -Detemir plus insulin sliding scale DVT prophylaxis with heparin Heart healthy diet Full code Problem List: 1. Respiratory failure Pain Ratin Pain Location: back Pain Goal: Remain pain free Pain Plan: see a/p Tomorrow's Labs & Rationales: lfts, bep, cbc
[2017-03-07 08:06] LABS: ABSOLUTE BASOPHIL COUNT 0.1 /CUMM (0.0-0.2); ABSOLUTE EOSINOPHIL COUNT 0.2 /CUMM (0.0-0.7); ABSOLUTE GRANULOCYTE CT 8.3 /CUMM (1.4-6.5); ABSOLUTE LYMPH COUNT 1.9 /CUMM (1.2-3.4); ABSOLUTE MONOCYTE COUNT 0.4 /CUMM (0.10-0.60); BASOPHIL % 0.7 % (0.0-2.0); EOSINOPHIL % 1.4 % (0-5); GRANULOCYTE % 76.7 % (42.2-75.2); HEMATOCRIT 48.9 % (37-47); MEAN CORPUSCULAR HGB 24.6 PG (27.0-31.0); MEAN CORPUSCULAR VOLUME 79.4 FL (81.0-99.0); MEAN PLATELET VOLUME 8.5 FL (7.4-10.4); PLATELET COUNT 183 /CUMM (130-400); RBC DISTRIBUTION WIDTH 16.3 % (11.5-14.5); RED BLOOD CELL CT 6.16 /CUMM (4.20-5.40); WHITE BLOOD CELL COUNT 10.9 /CUMM (4.8-10.8)
--- NOTE | 2017-03-07 10:59 | PN- Cardiology ---
Subjective Subjective: The patient is awake, alert, states continued dyspnea and overall fatigue The events of the last 24 hours as well as telemetry were reviewed. Review of Systems: The review of systems is negative for chest pains, palpitations nor lightheadedness. The remainder of the 14 point review of systems is noncontributory with the exception of above. Objective Vital Signs and I&Os Vital Signs Date Time Temp Pulse Resp B/P B/P Pulse O2 O2 Flow FiO2 Mean Ox Delivery Rate 03/07 0651 97.4 77 18 118/78 97 Nasal Cannula 03/07 0000 Nasal 2.0L Cannula 03/06 2306 98.2 75 16 110/80 95 Nasal 5.0L Cannula 03/06 1502 98.2 72 18 122/74 97 Nasal 5.0L Cannula 03/06 1450 Nasal Cannula Intake & Output 03/07 1600 03/07 0800 03/07 0000 03/06 1600 03/06 0800 03/06 0000 Intake Total 110 300 630 120 320 Output Total 3523 320 3058 450 600 Balance -890 -200 -570 -330 -280 Intake, IV 10 30 Intake, Oral 100 300 600 120 320 Number 1 2 0 1 Bowel Movements Output, Urine 0233 788 6757 450 600 Patient 255 lb Weight Physical Exam: General: Nontoxic, no apparent distress. HEENT: Sclera and conjunctiva within normal limits, without xanthelasmas. Neck: Carotids 2+ without bruits. Respiratory: Scattered rhonchi, air movement is good, without accessory respiratory muscle use. Heart: Regular rate and rhythm, without murmurs, without JVD. Abdomen: Soft, nontender, no masses, normoactive bowel sounds. Extremities: Without clubbing, cyanosis, without edema. Neuro: Nonfocal exam, strength, 5 out of 5 Skin: Within normal limits without lesions. Psych: Mood and affect: Normal Current Medications: Current Medications Sig/Howard Start time Last Medication Dose Route Stop Time Status Admin Acetaminophen 1,000 MG ONCE ONE 03/06 2029 CAN N/A 1 UNIT IV 03/06 2043 Amoxicillin/ 875 MG Q12H 03/05 06 AC 03/07 Clavulanate Potassium PO 03/08 2300 0602 Aspirin Buffered 81 MG DAILY 03/03 1000 AC 03/07 PO 1043 Heparin Sodium 5,000 UNIT Q8 03/020 AC 03/07 (Porcine) SC 0602 Hydrocortisone 1 BINA TID 03/04 1730 AC 03/07 TOP 1043 Insulin Aspart 0 AT BEDTIME 03/04 2200 AC SC Insulin Aspart 0 TIDAC 03/04 1700 AC 03/07 SC 0822 Melatonin 5 MG AT BEDTIME 03/07 2200 DC PO Melatonin 5 MG AT BEDTIME 03/07 0230 AC 03/07 PO 0333 Melatonin 3 MG AT BEDTIME 03/04 0330 DC 03/06 PO 2150 Metolazone 5 MG DAILY 03/06 1000 AC 03/07 PO 1043 Nystatin 1 BINA TID PRN 03/04 1630 AC 03/06 TOP 1003 Omeprazole 40 MG DAILY AC 03/07 0700 AC 03/07 PO 0605 Polyethylene Glycol 17 GM DAILY PRN 03/06 1010 AC PO Potassium Chloride 40 MEQ BID 03/06 1000 DC 03/06 PO 03/06 2201 2149 Senna/Docusate Sodium 2 TAB DAILY 03/05 1152 AC 03/07 PO 1043 Tramadol HCl 25 MG ONCE ONE 03/06 2100 DC 03/06 PO 03/06 2101 2149 Results Last 48 Hrs of Labs/Mics: Laboratory Tests 03/07/17 0645: Anion Gap 10, Estimated GFR > 60, Glucose 135 H, Calcium 9.2, Phosphorus 3.3, Magnesium 1.7, Total Bilirubin 0.7, AST 139 H, ALT 1462 H, Albumin 3.2 L, CBC w Diff NO MAN DIFF REQ, RBC 6.16 H, MCV 79.4 L, MCH 24.6 L, RDW 16.3 H, MPV 8.5, Gran % 76.7 H, Lymphocytes % 17.1 L, Monocytes % 4.1, Eosinophils % 1.4, Basophils % 0.7, Absolute Granulocytes 8.3 H, Absolute Lymphocytes 1.9, Absolute Monocytes 0.4, Absolute Eosinophils 0.2, Absolute Basophils 0.1, PUBS MCHC 31.0 L 03/06/17 0427: Anion Gap 8, Estimated GFR > 60, Glucose 122 H, Calcium 8.8, Phosphorus 4.2, Magnesium 1.7, Total Bilirubin 0.7, AST 404 H, ALT 2469 H, Albumin 3.0 L, CBC w Diff NO MAN DIFF REQ, RBC 6.16 H, MCV 79.7 L, MCH 24.5 L, RDW 16.5 H, MPV 8.3, Gran % 72.9, Lymphocytes % 18.4 L, Monocytes % 5.8, Eosinophils % 1.9, Basophils % 1.0, Absolute Granulocytes 6.2, Absolute Lymphocytes 1.6, Absolute Monocytes 0.5, Absolute Eosinophils 0.2, Absolute Basophils 0.1, PUBS MCHC 30.8 L Assessment/Plan Assessment/Plan 1. Respiratory failure possibly due to narcotics with the concern for aspiration pneumonia; improved 2. Acute kidney injury, improving 3. Minimal troponin elevation likely due to acute kidney injury/respiratory failure 4. Chronic venous insufficiency/lymphedema 5. History of hypertension on outpatient beta lisa 6. Transient bradycardia; likely vagal in etiology 7. Elevated liver enzymes 8. Abnormal EKG We will continue the current medication regimen from a cardiac standpoint, and titrate as an outpatient if needed. The patient statin regimen will continue to be held and restarted as an outpatient once liver function testing is normalized. Continue telemetry? No
--- NOTE | 2017-03-07 14:04 | PN- Pulmonary ---
Subjective HPI/Critical Care Issues: No overnight events. Slept poorly because of hospital environment. Complaining of dry lips. No CP, SOB, abd pain, or other complaints. Review of Systems Constitutional: Reports: no symptoms. EENTM: Reports: see HPI. Cardiovascular: Reports: no symptoms. Respiratory: Reports: no symptoms. Gastrointestinal: Reports: no symptoms. Genitourinary: Reports: no symptoms. Musculoskeletal: Reports: no symptoms. Skin: Reports: no symptoms. Neurological/Psychological: Reports: no symptoms. Hematologic/Endocrine: Reports: no symptoms. Immunologic/Allergic: Reports: no symptoms. Objective Current Medications: Current Medications Sig/Howard Start time Last Medication Dose Route Stop Time Status Admin Acetaminophen 975 MG Q6-PRN PRN 03/07 1115 DC PO Acetaminophen 1,000 MG ONCE ONE 03/06 2030 CAN N/A 1 UNIT IV 03/06 204 Amoxicillin/ 875 MG Q12H 03/05 0600 AC 03/07 Clavulanate Potassium PO 03/08 2300 0602 Aspirin Buffered 81 MG DAILY 03/03 1000 AC 03/07 PO 1043 Heparin Sodium 5,000 UNIT Q8 03/02 2200 AC 03/07 (Porcine) SC 0602 Hydrocortisone 1 BINA TID 03/04 1730 AC 03/07 TOP 1043 Ibuprofen 600 MG 4 TIMES/DAY PRN 03/07 1130 AC 03/07 PO 1234 Insulin Aspart 0 AT BEDTIME 03/04 2200 AC SC Insulin Aspart 0 TIDAC 03/04 1700 AC 03/07 SC 0822 Melatonin 5 MG AT BEDTIME 03/07 2200 DC PO Melatonin 5 MG AT BEDTIME 03/07 0230 AC 03/07 PO 0333 Melatonin 3 MG AT BEDTIME 03/04 0330 DC 03/06 PO 2150 Metolazone 5 MG DAILY 03/06 1000 AC 03/07 PO 1043 Nystatin 1 BINA TID PRN 03/04 1630 AC 03/06 TOP 1003 Omeprazole 40 MG DAILY AC 03/07 0700 AC 03/07 PO 0605 Polyethylene Glycol 17 GM DAILY PRN 03/06 1010 AC PO Potassium Chloride 40 MEQ BID 03/06 1000 DC 03/06 PO 03/06 2201 2149 Senna/Docusate Sodium 2 TAB DAILY 03/05 1152 AC 03/07 PO 1043 Tramadol HCl 25 MG ONCE ONE 03/06 2100 DC 03/06 PO 03/06 2101 2140 Vital Signs & I&O Last 24 Hrs of Vitals and I&O: Vital Signs Date Time Temp Pulse Resp B/P B/P Pulse O2 O2 Flow FiO2 Mean Ox Delivery Rate 03/07 799 97 Room Air 03/07 0651 97.4 77 18 118/78 97 Nasal Cannula 03/07 0000 Nasal 2.0L Cannula 03/06 2306 98.2 75 16 110/80 95 Nasal 5.0L Cannula 03/06 1502 98.2 72 18 122/74 97 Nasal 5.0L Cannula 03/06 1450 Nasal Cannula Intake & Output 03/07 1600 03/07 0800 03/07 0000 Intake Total 110 300 Output Total 1000 500 Balance -890 -200 Intake, IV 10 Intake, Oral 100 300 Number 1 Bowel Movements Output, Urine 1000 500 Laboratory Tests 03/07 03/06 0645 0427 Chemistry Sodium (137 - 145 mmol/L) 139 140 Potassium (3.5 - 5.1 mmol/L) 4.1 3.9 Chloride (98 - 107 mmol/L) 95 L 94 L Carbon Dioxide (22 - 30 mmol/L) 35 H 38 H Anion Gap (5 - 16) 10 8 BUN (7 - 17 mg/dL) 25 H 22 H Creatinine (0.5 - 1.0 mg/dL) 0.8 0.7 Estimated GFR (>60 ml/min) > 60 > 60 Glucose (65 - 99 mg/dL) 135 H 122 H Calcium (8.4 - 10.2 mg/dL) 9.2 8.8 Phosphorus (2.5 - 4.5 mg/dL) 3.3 4.2 Magnesium (1.6 - 2.3 mg/dL) 1.7 1.7 Total Bilirubin (0.2 - 1.3 mg/dL) 0.7 0.7 AST (14 - 36 U/L) 139 H 404 H ALT (9 - 52 U/L) 1462 H 2469 H Albumin (3.5 - 5.0 g/dL) 3.2 L 3.0 L Hematology CBC w Diff NO MAN DIFF REQ NO MAN DIFF REQ WBC (4.8 - 10.8 /CUMM) 10.9 H 8.4 RBC (4.20 - 5.40 /CUMM) 6.16 H 6.16 H Hgb (12.0 - 16.0 G/DL) 15.1 15.1 Hct (37 - 47 %) 48.9 H 49.0 H MCV (81.0 - 99.0 FL) 79.4 L 79.7 L MCH (27.0 - 31.0 PG) 24.6 L 24.5 L RDW (11.5 - 14.5 %) 16.3 H 16.5 H Plt Count (130 - 400 /CUMM) 183 170 MPV (7.4 - 10.4 FL) 8.5 8.3 Gran % (42.2 - 75.2 %) 76.7 H 72.9 Lymphocytes % (20.5 - 51.1 %) 17.1 L 18.4 L Monocytes % (1.7 - 9.3 %) 4.1 5.8 Eosinophils % (0 - 5 %) 1.4 1.9 Basophils % (0.0 - 2.0 %) 0.7 1.0 Absolute Granulocytes (1.4 - 6.5 /CUMM) 8.3 H 6.2 Absolute Lymphocytes (1.2 - 3.4 /CUMM) 1.9 1.6 Absolute Monocytes (0.10 - 0.60 /CUMM) 0.4 0.5 Absolute Eosinophils (0.0 - 0.7 /CUMM) 0.2 0.2 Absolute Basophils (0.0 - 0.2 /CUMM) 0.1 0.1 PUBS MCHC (33.0 - 37.0 G/DL) 31.0 L 30.8 L Impression/Plan Impression/Plan Impression/Plan: DELGADO On nasal cannula chest mild crackles abd soft bs Sig edema EKG noted CXr IMPRESSION: Low lung volumes. Difficult to exclude lower lobe opacities or subsegmental atelectasis due to overlying soft tissues. The mid and upper lungs are clear. DICTATED BY: Isaac Montelongo MD DATE/TIME DICTATED:03/05/171028 76 yo F with h/o ?lupus (no obvious features questionable diagnosis), chronic pain, HTN, T2DM, breast/ uterine cancer, chronic venous stasis is brought in after patient found her unresponsive at home. Pt was nasally intubated at home, and was reported as being sig taras hr in the 30s, who sub improved sig and now admitted to the icu. Pt does have history of sig narcotic use and takes oxycodone (followed by pain center). Recently she was noted to be more lethargic and has had some chestdiscomfort, fol smelling urine IMPRESSION AND ISSUES Pt with multiple issues with history of inflammatory disease ( with prob lupus and sjogrens) on immunosupp rx with * Resolved Acute resp failure with s/p nasal intubation, now extubated- prob due to narcotics * Short period of Unresponsive episode with Sig taras noted in the field with resp failure who was nasally intubated, with troponin leak with ekg changes. Rule of IHD and ACS cardio on board * Sig narcotic use for chronic pain which may have contributed her current episode. Pt has had recurrent similar admissions at an outside facility mostly due to narcotic use * Lower ext edema, chronic no evidence suggestive of venous thromboembolism, ultrasound negative * Sig elevated LFTS, prob shock liver which is improving and Tylenol level is normal, hep serology neg * Elevated pro bnp with acute pulm edema, acute mild diastolic heart failure, status post diuresis since yesterday * DM with hyperglycemia * Resolved CHIOMA * hyponatremia and other electrolyte abnormality, improving * Aspiration pna, with atx * History of NICOLE prob untreated REC Dc abx after today Follow liver enzymes every few days while in the hospital Out of bed to chair Stable will follow prn
[2017-03-07 14:17] VITALS: BP 106/80
[2017-03-07 22:11] VITALS: BP 140/88
[2017-03-08 06:57] VITALS: BP 122/78
--- NOTE | 2017-03-08 07:44 | PN- Housestaff ---
See Addendum Subjective Follow-up For: Opioid overdose, asp pna Subjective: No overnight events. Patient complaining of pain in calves, somewhat relived by ibuprofen. We discussed that because this is her 2nd overdose on opioids, she should try to avoid taking them. No other complaints. Review of Systems Constitutional: Reports: no symptoms. EENTM: Reports: no symptoms. Cardiovascular: Reports: no symptoms. Respiratory: Reports: no symptoms. Gastrointestinal: Reports: no symptoms. Genitourinary: Reports: no symptoms. Musculoskeletal: Reports: see HPI. Skin: Reports: no symptoms. Neurological/Psychological: Reports: no symptoms. Hematologic/Endocrine: Reports: no symptoms. Immunologic/Allergic: Reports: no symptoms. Objective Last 24 Hrs of Vital Signs/I&O Vital Signs Date Time Temp Pulse Resp B/P B/P Pulse O2 O2 Flow FiO2 Mean Ox Delivery Rate 03/08 0657 98.3 88 18 122/78 97 Room Air 03/07 2211 98.8 87 18 140/88 94 Room Air 03/07 1417 98.9 81 18 106/80 94 Room Air 03/07 0800 97 Room Air Intake & Output 03/08 0800 03/08 0000 03/07 1600 Intake Total 110 600 480 Output Total 125 350 Balance 110 475 130 Intake, IV 10 Intake, Oral 100 600 480 Number 1 Bowel Movements Output, Urine 125 350 Physical Exam General Appearance: Alert, Oriented X3, Cooperative, No Acute Distress Cardiovascular: Regular Rate, Normal S1, Normal S2 Lungs: Clear to Auscultation, Normal Air Movement Abdomen: Normal Bowel Sounds, Soft, No Tenderness Extremities: swollen and red bilaterally, tender to touch Current Medications: Current Medications Sig/Howard Start time Last Medication Dose Route Stop Time Status Admin Acetaminophen 975 MG Q6-PRN PRN 03/07 1115 DC PO Amoxicillin/ 875 MG Q12H 03/05 0600 AC 03/08 Clavulanate Potassium PO 03/08 2300 0620 Aspirin Buffered 81 MG DAILY 03/03 1000 AC 03/07 PO 1043 Heparin Sodium 5,000 UNIT Q8 03/02 2200 AC 03/08 (Porcine) SC 0620 Hydrocortisone 1 BINA TID 03/04 1730 AC 03/07 TOP 1043 Ibuprofen 600 MG 4 TIMES/DAY PRN 03/07 1130 AC 03/08 PO 0315 Insulin Aspart 0 AT BEDTIME 03/04 2200 AC SC Insulin Aspart 0 TIDAC 03/04 1700 AC 03/07 SC 1659 Melatonin 3 MG ONCE PRN 03/08 0330 AC PO Melatonin 5 MG AT BEDTIME 03/07 0230 AC 03/07 PO 2110 Metolazone 5 MG DAILY 03/06 1000 AC 03/07 PO 1043 Nystatin 1 BINA TID PRN 03/04 1630 AC 03/06 TOP 1003 Omeprazole 40 MG DAILY AC 03/07 0700 AC 03/08 PO 0620 Polyethylene Glycol 17 GM DAILY PRN 03/06 1010 AC PO Senna/Docusate Sodium 2 TAB DAILY 03/05 1152 AC 03/07 PO 1043 Last 24 Hrs of Lab/Edmund Results Last 24 Hrs of Labs/Mics: Laboratory Tests 03/08/17 0716: Sodium Pending, Potassium Pending, Chloride Pending, Carbon Dioxide Pending, Anion Gap Pending, BUN Pending, Creatinine Pending, BUN/Creatinine Ratio Pending , Total Bilirubin Pending, Direct Bilirubin Pending, AST Pending, ALT Pending, Alkaline Phosphatase Pending, Total Protein Pending, Albumin Pending 03/08/17 0656: CBC w Diff Pending, WBC Pending, RBC Pending, Hgb Pending, Hct Pending, MCV Pending, MCH Pending, RDW Pending, Plt Count Pending, MPV Pending, PUBS MCHC Pending Assessment/Plan Assessment: is a 76-year-old female past medical history of lupus, lower extremity edema , anxiety, chronic pain, who presented to the emergency department after being found unresponsive at home secondary to opioid overdose. Problem list: 1. Acute hypoxic respiratory failure secondary to opioid overdose 2. Aspiration pneumonia 3. Significant bradycardia 4. Type II myocardial infarction 5. Transaminitis 6. Mild hypokalemia #Acute hypoxic respiratory failure secondary to opioid overdose: This is her second admission for opioid overdose. She takes opioids for chronic pain and is followed by pain clinic. However, it may be prudent to avoid opioids given that she is prone to overdose. -Avoid opioids -Appreciate pulmonology recommendations #Aspiration pneumonia: Patient likely aspirated secondary to the opioid overdose. Her pulmonary symptoms have improved remarkably. -Continue antibiotic Augmentin twice a day until 03/08/2017 #Significant bradycardia: Patient had an episode of significant bradycardia to the 30s in the field. We have been holding her carvedilol as of this. -Appreciate cardiology recommendations regarding when to restart carvedilol #Transaminitis: Hepatitis panel negative. Potentially secondary to shock liver. It is improving. -Continue to hold statin -Trend LFTs #Mild hypokalemia: Potassium 3.4. -Replenish potassium #Chronic medical problems: -Continue home omeprazole, melatonin, polyethylene glycol, metolazone, senna, docusate, aspirin -Detemir plus insulin sliding scale DVT prophylaxis with heparin Heart healthy diet Full code Problem List: 1. Respiratory failure Pain Ratin Pain Location: calves Pain Goal: Remain pain free Pain Plan: see a/p Tomorrow's Labs & Rationales: bep, lfts
[2017-03-08 08:08] LABS: ABSOLUTE BASOPHIL COUNT 0 /CUMM (0.0-0.2); ABSOLUTE EOSINOPHIL COUNT 0.2 /CUMM (0.0-0.7); ABSOLUTE LYMPH COUNT 1.7 /CUMM (1.2-3.4); ABSOLUTE MONOCYTE COUNT 0.1 /CUMM (0.10-0.60); BASOPHIL % 0.2 % (0.0-2.0); EOSINOPHIL % 2.1 % (0-5); GRANULOCYTE % 80.3 % (42.2-75.2); MEAN CORPUSCULAR HGB 24.6 PG (27.0-31.0); MEAN CORPUSCULAR HGB CONC 31.2 G/DL (33.0-37.0); MEAN CORPUSCULAR VOLUME 78.9 FL (81.0-99.0); MEAN PLATELET VOLUME 8.5 FL (7.4-10.4); PLATELET COUNT 173 /CUMM (130-400); RBC DISTRIBUTION WIDTH 16.4 % (11.5-14.5); RED BLOOD CELL CT 6.08 /CUMM (4.20-5.40); WHITE BLOOD CELL COUNT 9.9 /CUMM (4.8-10.8)
--- NOTE | 2017-03-08 12:52 | Discharge Summary ---
Visit Information Visit Dates Admission Date: 03/02/17 Discharge Date: 03/09/17 Hospital Course Course Attending Physician: Kayy MYRICK,Prabhakar Lepe Primary Care Physician: Jamil Michaels MD Hospital Course: Ms. Pena is a 76 yo F with h/o ?lupus (no obvious features questionable diagnosis), chronic pain, HTN, T2DM, breast/ uterine cancer, chronic venous stasis is brought in after being found unresponsive at home. The morning of admission at 7 am, patient woke up, was lethargic and complained of substernal chest discomfort. gave her the regular dose of pain medications (oxycontin 20 mg and oxycodone 10 mg) and patient went back to sleep. At 1 pm, when tried to wake her up, she was found unresponsive. EMS arrived, noted patient to be apneic, HR in 30's and BP 60's systolic. Patient was nasally intubated (due to trismus) and paced at a HR of 60 and 80 mA. She also received Narcan IV 3 mg enroute. reports that patient had similar opiate overdose presentation in Feb 2016 at [facility], where she responded to Narcan and was not intubated. On ER arrival, patient was noted to have strong radial pulses, BP 110/62, HR 60' s, pacing was discontinued. Patient was spontaneously moving her extremities and gradually became more responsive. Labs on arrival: WBC 11.7, microcytosis, Plt 180, no bands, Na 135, bicarb 33, BUN 49, creat 1.8 (creatinine 0.5 in 2016 at [place]), glucose 114, lactic acid 2.2, trop 0.08 --> 0.11, proBNP 07072, CK 106. Imaging on arrival: AB.40/45/84/27 on vent AC TV 450, RR 18, PEEP 5, FiO2 100%. UA hazy, proteinuria, WBC 1-3, many bacteria. Urine tox screen benzos+, opiates 999. CXR: ETT in good position. Widened mediastinum contour, low lung volumes with bibasilar and perihilar atelectasis. CT chest: segmental and subsegmental atelectasis in the upper and lower lobes. Small foci of superimposed consolidation, hepatic steatosis and splenomegaly. EKG: Sinus rhythm with TWI in V1-V3 with Qtc 451. Repeat EKG shows TWI in inferior leads. (no old EKG to compare). Reason for ICU admission: Close monitoring for unresponsiveness/Acute Respiratory Failure requiring intubation. Problem list: 1. Acute hypoxic respiratory failure secondary to opioid overdose 2. Aspiration pneumonia 3. Significant bradycardia 4. Type II myocardial infarction 5. Transaminitis 6. Mild hypokalemia 7. Chronic lower extremity edema 8. Acute kidney injury #Acute hypoxic respiratory failure secondary to opioid overdose/Aspiration pneumonia: Patient was initially admitted to ICU after intubation and put on every 1 hour neurochecks. She was put on a propofol drip and narcotics were held. She was gently hydrated and started on IV ampicillin/sulbactam for possible aspiration pneumonia. It was later changed to by mouth amoxicillin/ clavulanic acid and continued until 03/08/2017. She was successfully extubated on 03/03/2017. She significantly improved with no further episodes of unresponsiveness. Her respiratory status improved and she was weaned off oxygen. Narcotics were held and morphine was given for any signs of withdrawal. She is now off all opioid medications and should avoid these in the future given that she has now overdosed twice on opioids. We have started her on ibuprofen, Lidoderm patch, and gabapentin treat her pain. She should follow-up with her pain doctor and primary care doctor for further care regarding this. #Significant bradycardia: In the field, the patient was reportedly significantly bradycardic. Patient was closely monitored with every one hour neurochecks in the ICU. She was evaluated by cardiology who felt that bradycardia was likely transient neurocardiogenic in etiology. She was also on an outpatient beta lisa therapy for hypertension. Beta blockers were held at admission. Echo showed no evidence of regional wall motion abnormality. Blood pressure remained stable without outpatient beta blockers. She should follow up with cardiology as an outpatient for further care. #Type II myocardial infarction: The minimal troponin elevation was likely secondary to kidney and liver injury. Patient was continued on aspirin therapy after passing swallow eval and statin was held secondary to transaminitis. Her heart rate was low normal on telemetry with no evidence of advanced heart block or prolonged pauses. Echo showed no evidence of regional wall motion abnormality. #Transaminits: Patient had elevated liver function tests likely secondary to shock liver. Statins were held area Tylenol level was was low. Electrolytes were repleted as needed. Hepatitis panel was negative. LFTs were trended and have been improving. #Chronic lower extremity edema: At baseline, patient's legs are edematous and red. She was treated with diuresis briefly to improve the edema. Dopplers were negative for DVT. Elevation of extremities, local wound care was continued. #Acute kidney injury: Initially at admission patient had acute kidney injury likely prerenal in the setting of dehydration. Furosemide was held initially. Kidney functions improved with IV hydration and resolved by day 2. #Mild hypokalemia: Likely for monitored throughout her stay and replenish as necessary. #Chronic medical problems: The following home medications were continued: omeprazole, melatonin, polyethylene glycol, metolazone, senna, docusate, aspirin. She was treated with Detemir plus insulin sliding scale Allergies: Coded Allergies: doxycycline (UNKNOWN PER PT 03/02/17) fentanyl (PER PT "ALMOST " 03/02/17) morphine (PER PT UNKNOWN 03/04/17) PER HANIF, PATIENT SAID THEY GET VERY SICK WITH MORPHINE. OK WITH OXYCODONE THOUGH. - 03/04/17 1523 Disposition Summary Disposition Principal Diagnosis: 1. Acute hypoxic respiratory failure secondary to opioid overdose Additional Diagnosis: 2. Aspiration pneumonia 3. Significant bradycardia 4. Type II myocardial infarction 5. Transaminitis 6. Mild hypokalemia 7. Chronic lower extremity edema 8. Acute kidney injury Discharge Disposition: home health services Discharge Instructions General Discharge Information Code Status: Full Code Patient's Diet: heart healthy Patient's Activity: As tolerated Follow-Up Instructions/Appts: Please take all medications as directed. Please follow-up with her primary care doctor in 1-2 weeks. Medications at Discharge Discharge Medications: Stop taking the following medications: Oxycodone HCl (Oxycontin) 20 MG TAB.ER.12H ORAL TWICE DAILY Qty = 60 Oxycodone HCl (Oxycodone HCl) 10 MG TABLET ORAL THREE TIMES DAILY Qty = 180 Diazepam (Diazepam) 2 MG TABLET ORAL as needed for ANXIETY Qty = 30 Alprazolam (Alprazolam) 0.5 MG TABLET ORAL Every night Qty = 60 Continue taking these medications: Atorvastatin Calcium (Atorvastatin Calcium) 10 MG TABLET 1 Tablet ORAL DAILY Qty = 90 Dicyclomine HCl (Dicyclomine HCl) 20 MG TABLET 1 Tablet ORAL THREE TIMES DAILY as needed for GI Qty = 270 Furosemide (Furosemide) 40 MG TABLET 1 Tablet ORAL DAILY Qty = 90 Ondansetron (Zofran Odt) 4 MG TAB.RAPDIS 1 Tablet SUBLINGUAL Q8H as needed for N/V Qty = 40 Carvedilol (Carvedilol) 25 MG TABLET 1 Tablet ORAL TWICE DAILY Qty = 180 Celecoxib (Celecoxib) 200 MG CAPSULE 1 Capsule ORAL DAILY Qty = 90 Esomeprazole (Nexium) 40 MG CAPSULE.DR 1 Capsule ORAL TWICE DAILY Qty = 180 Amitriptyline HCl (Amitriptyline HCl) 50 MG TABLET 1 Tablet ORAL DAILY Qty = 90 Metolazone (Metolazone) 5 MG TABLET 1 Tablet ORAL DAILY Qty = 30 Aspirin (Ecotrin*) 81 MG TABLET.DR 1 Tablet ORAL DAILY Start taking the following new medications: Gabapentin (Gabapentin) 100 MG CAPSULE 100 Milligram ORAL EVERY 8 HOURS Qty = 90 No Refills Lidocaine (Lidoderm) 5 % ADH..PATCH 1 Patch ON SKIN DAILY as needed for Back back Qty = 15 No Refills Instructions: Use for 12 hours at a time, then 12 hours off. Copies To: Xavier YMRICK,Jose Lepe; Leann MYRICK,Salty; Xenia MYRICK,Jamil Duke
[2017-03-08 15:32] VITALS: BP 120/70
[2017-03-08 22:25] VITALS: BP 100/70
[2017-03-09 06:18] VITALS: BP 160/96
--- NOTE | 2017-03-09 07:34 | PN- Housestaff ---
See Addendum Subjective Follow-up For: Opioid overdose Tele-Events Since Last Visit: Not on tele Subjective: No overnight events. Very sleep this morning, but reporting no pain or other complaints. Review of Systems Constitutional: Reports: no symptoms. EENTM: Reports: no symptoms. Cardiovascular: Reports: no symptoms. Respiratory: Reports: no symptoms. Gastrointestinal: Reports: no symptoms. Genitourinary: Reports: no symptoms. Musculoskeletal: Reports: no symptoms. Skin: Reports: no symptoms. Neurological/Psychological: Reports: no symptoms. Hematologic/Endocrine: Reports: no symptoms. Immunologic/Allergic: Reports: no symptoms. Objective Last 24 Hrs of Vital Signs/I&O Vital Signs Date Time Temp Pulse Resp B/P B/P Pulse O2 O2 Flow FiO2 Mean Ox Delivery Rate 03/09 06 98.0 88 20 160/96 94 Room Air 03/08 2225 98.0 84 20 100/70 97 03/08 1532 97.7 84 18 120/70 94 Intake & Output 03/09 0800 03/09 0000 03/08 1600 Intake Total 200 480 Output Total 400 200 Balance -200 280 Intake, Oral 200 480 Number 0 Bowel Movements Output, Urine 400 200 Physical Exam General Appearance: Cooperative, No Acute Distress, sleepy Cardiovascular: Regular Rate, Normal S1, Normal S2 Lungs: Clear to Auscultation Abdomen: Normal Bowel Sounds, Soft, No Tenderness Neurological: Normal Speech Extremities: no change Current Medications: Current Medications Sig/Howard Start time Last Medication Dose Route Stop Time Status Admin Acetaminophen 325 MG Q6P PRN 03/08 1600 AC PO Amoxicillin/ 875 MG Q12H 03/05 0600 DC 03/08 Clavulanate Potassium PO 03/08 2300 0620 Aspirin Buffered 81 MG DAILY 03/03 1000 AC 03/08 PO 1050 Gabapentin 100 MG Q8 03/08 1400 AC 03/09 PO 0600 Heparin Sodium 5,000 UNIT Q8 03/02 2200 AC 03/09 (Porcine) SC 0600 Hydrocortisone 1 BINA TID 03/04 1730 DC 03/07 TOP 1043 Ibuprofen 600 MG 4 TIMES/DAY PRN 03/07 1130 AC 03/08 PO 2039 Insulin Aspart 0 AT BEDTIME 03/04 2200 AC SC Insulin Aspart 0 TIDAC 03/04 1700 AC 03/08 SC 1700 Lidocaine 1 PAT DAILY 03/08 1145 AC 03/08 EXT 1306 Melatonin 3 MG ONCE PRN 03/08 0330 AC PO Melatonin 5 MG AT BEDTIME 03/07 0230 AC 03/08 PO 2041 Metolazone 5 MG DAILY 03/06 1000 AC 03/08 PO 1049 Nystatin 1 BINA TID PRN 03/04 1630 DC 03/06 TOP 1003 Omeprazole 40 MG DAILY AC 03/07 0700 AC 03/09 PO 0633 Polyethylene Glycol 17 GM DAILY PRN 03/06 1010 AC PO Potassium Chloride 20 MEQ ONCE ONE 03/08 0845 DC 03/08 PO 03/08 0846 1050 Senna/Docusate Sodium 2 TAB DAILY 03/05 1152 AC 03/08 PO 1049 Last 24 Hrs of Lab/Edmund Results Last 24 Hrs of Labs/Mics: Laboratory Tests 03/09/17 0702: Sodium Pending, Potassium Pending, Chloride Pending, Carbon Dioxide Pending, Anion Gap Pending, BUN Pending, Creatinine Pending, BUN/Creatinine Ratio Pending , Total Bilirubin Pending, Direct Bilirubin Pending, AST Pending, ALT Pending, Alkaline Phosphatase Pending, Total Protein Pending, Albumin Pending Assessment/Plan Assessment: Ms. Jacobo is a 76-year-old female past medical history of lupus, lower extremity edema, anxiety, chronic pain, who presented to the emergency department after being found unresponsive at home secondary to opioid overdose. Problem list: 1. Acute hypoxic respiratory failure secondary to opioid overdose 2. Aspiration pneumonia 3. Significant bradycardia 4. Type II myocardial infarction 5. Transaminitis 6. Mild hypokalemia #Acute hypoxic respiratory failure secondary to opioid overdose: This is her second admission for opioid overdose. She takes opioids for chronic pain and is followed by pain clinic. However, it may be prudent to avoid opioids given that she is prone to overdose. -Avoid opioids -Appreciate pulmonology recommendations -Continue Lidoderm patch and gabapentin and ibuprofen for pain #Aspiration pneumonia: Patient likely aspirated secondary to the opioid overdose. Her pulmonary symptoms have improved remarkably. Now off antibiotics. #Significant bradycardia: Patient had an episode of significant bradycardia to the 30s in the field. We have been holding her carvedilol as of this. -Appreciate cardiology recommendations #Transaminitis: Hepatitis panel negative. Potentially secondary to shock liver. It is improving. -Continue to hold statin -Trend LFTs #Mild hypokalemia: Potassium 3.4. -Replenish potassium #Chronic medical problems: -Continue home omeprazole, melatonin, polyethylene glycol, metolazone, senna, docusate, aspirin -Detemir plus insulin sliding scale - not requiring much DVT prophylaxis with heparin Heart healthy diet Full code Problem List: 1. Respiratory failure Pain Ratin Pain Location: no pain Pain Goal: Remain pain free Pain Plan: see a/p Tomorrow's Labs & Rationales: none
[2017-03-09] MEDS ORDERED: GABAPENTIN100 M2 PO ×2 (07:35→17:27)
--- NOTE | 2017-03-09 07:38 | Patient Discharge Instructions ---
See Addendum Discharge Instructions General Discharge Information You were seen/treated for: Respiratory failure secondary to opioid overdose Watch for these problems: Fever, chest pain, shortness of breath, unconsciousness Special Instructions: Please take all medications as directed. He is avoid all opioid medications in the future. Please follow-up with your primary care doctor in 1-2 weeks. Diet Continue normal diet: Yes Activity Full Activity/No Limits: Yes Acute Coronary Syndrome Inclusion Criteria At DC or during hospital stay patient has or had the following: ACS DIAGNOSIS No Discharge Core Measures Meds if any: Prescribed or Continued at Discharge Meds if any: NOT Prescribed or Continued at Discharge Congestive Heart Failure Inclusion Criteria At DC or during hospital stay patient has or had the following: CHF DIAGNOSIS No Discharge Core Measures Meds if any: Prescribed or Continued at Discharge Meds if any: NOT Prescribed or Continued at Discharge Cerebrovascular accident Inclusion Criteria At DC or during hospital stay patient has or had the following: CVA/TIA Diagnosis No Discharge Core Measures Meds if any: Prescribed or Continued at Discharge Meds if any: NOT Prescribed or Continued at Discharge Venous thromboembolism Inclusion Criteria VTE Diagnosis No VTE Type NONE VTE Confirmed by (Test) NONE Discharge Core Measures - Per Current guidelines, there needs to be overlap - treatment for the first 5 days of Warfarin therapy. - If discharged on Warfarin prior to 5 days of - overlap therapy, the patient will need to be - assessed for post discharge needs including - *Post discharge parental anticoagulation - *Warfarin and/or parental anticoagulation education - *Follow up date to check INR post discharge At least 5 days overlap therapy as Inpatient No Meds if any: Prescribed or Continued at Discharge Note: Overlap Therapy is Warfarin and Anticoagulant Meds if any: NOT Prescribed or Continued at Discharge
[2017-03-09] MEDS ORDERED: LIDODERM1 EACH EXT ×2 (07:41→17:27)
[2017-03-09 08:00] VITALS: BP 130/70
[2017-03-09 14:22] VITALS: BP 116/82
== END 2017-03-09 17:40 | disposition home health service (06) | DRG 917 ==
LOC: ERH 14:37 → CRI 18:01 → ERHI 18:01 → 1NO 18:01 → ENRESERV 19:37 → CRI 20:14 → 1NO 03-06 15:07 → ENTRNSPT 03-09 17:08 → CMPTRNSPT 03-09 17:11 → 1NO 03-09 17:40
PROVIDERS: Emergency Medicine; Internal Medicine; Internal Medicine Hematology & Oncology; Student in an Organized Health Care Education/Training Program
PROC: 5A1935Z Respiratory Ventilation, Less than 24 Consecutive Hours (ICD-10-PCS; principal; 2017-03-02)
PROC: 0BH17EZ Insertion of Endotracheal Airway into Trachea, Via Natural or Artificial Opening (ICD-10-PCS; principal; 2017-03-02)
DX: T40.2X1A Poisoning by other opioids, accidental (unintentional), initial encounter (principal); J96.00 Acute respiratory failure, unspecified whether with hypoxia or hypercapnia; J69.0 Pneumonitis due to inhalation of food and vomit; K72.00 Acute and subacute hepatic failure without coma; N17.9 Acute kidney failure, unspecified; E87.1 Hypo-osmolality and hyponatremia; E11.65 Type 2 diabetes mellitus with hyperglycemia; R00.1 Bradycardia, unspecified; K76.0 Fatty (change of) liver, not elsewhere classified; T42.4X1A Poisoning by benzodiazepines, accidental (unintentional), initial encounter; I10 Essential (primary) hypertension; G89.29 Other chronic pain; I87.2 Venous insufficiency (chronic) (peripheral); Y92.009 Unspecified place in unspecified non-institutional (private) residence as the place of occurrence of the external cause; E87.6 Hypokalemia; G47.33 Obstructive sleep apnea (adult) (pediatric); Z85.42 Personal history of malignant neoplasm of other parts of uterus; Z85.3 Personal history of malignant neoplasm of breast
CPT/HCPCS: 1NP; CCU; 36415; 71045; 80307; 81001; 82436; 87040; 87070; 87804; 87804-59; 93005; 93010; 93306; 93970; 96361; 96374; 97110-GO; 97116-GO; 97161-GP; 99291; G0480; J0131; J1644; J1815; J1940; J2060; J2270; J3490